=== PATIENT | female | born 1945 | race Caucasian/White ===

== ENCOUNTER 2016-11-14 17:12 | Observation (INO) | payer MEDICARE ==
[2016-11-14] MEDS ORDERED: NS 0.9% 1000 ML* 1,000 ML IV ONE (17:58)
[2016-11-14] MEDS ORDERED: Diltiazem IV* 5 MG/ML 5 ML VIAL (for loading dose/IV Push) (25 MG) IV PUSH ONE (17:58)
[2016-11-14] MEDS ORDERED: Diltiazem IV VIAL* 125 MG in D5W 100 ML BAG* 100 ML IV ONE (18:02)
[2016-11-14] MEDS ORDERED: Diltiazem DRIP* 100 MG/100 ML ADDV.BAG IVPB ONE (18:34)
[2016-11-14 18:36] LABS: Hematocrit 36 % (35-47); Hemoglobin 12.6 g/dl (12.0-16.0); Mean Corpuscular HGB Conc 35 g/dl (31-36); Mean Corpuscular Hemoglobin 32 pg (27-31); Mean Corpuscular Volume 92 fL (80-97); Mean Platelet Volume 8 um3 (7.4-10.4); Red Blood Count 3.88 10^6/ul (4.0-5.4); Red Cell Distribution Width 14 % (10.5-15); White Blood Count 8.6 10^3/ul (3.5-10.8)
[2016-11-14 18:52] LABS: Albumin 3.6 g/dL (3.2-5.2); BUN/Creatinine Ratio 12.4 (8-20); EGFR African American 48.6 (>60); EGFR Non-African American 37.8 (>60); Magnesium 1.2 mg/dL (1.9-2.7); Potassium 2.9 mmol/L (3.5-5.0); Total Bilirubin 0.8 mg/dL (0.2-1.0); Total Protein 6.6 g/dL (6.4-8.9)
[2016-11-14] MEDS ORDERED: Apixaban* 5 MG TAB PO ONE (18:55)
--- NOTE | 2016-11-14 18:58 | RAD ---
Indication: Atrial fibrillation and dizziness after hiking this week. Comparison: No relevant prior exams available on the [facility] for comparison. Technique: Upright AP 1823 hours Report: Clear lungs and pleural spaces. Negative for pneumothorax. The heart, pulmonary vasculature, and mediastinal contours are unremarkable. IMPRESSION: No evidence for acute intrathoracic disease.
--- NOTE | 2016-11-14 19:02 | ED ---
Jose A Grayson Angela, scribed for Rivera Ponce MD on 11/14/16 at 1746 . Palpitations / Dysrhythmia - HPI Summary HPI Summary: This pt is a 71 y/o female presenting to [facility] for an evaluation of A-fib, dizziness and light-headedness. Pt is sent from her PCP's office with a rate of 173. Pt reports she was in the [facility] when her symptoms started 4 days ago after taking a 4 mile walk. Pt notes she had nothing to drink and when she got to her home she had a lot of Gatorade. Pt denies chest pain, cough, fever, chills, slurred speech, motor weakness, weight loss, LE swelling. She states her baseline BP is around 120/80. Pt does not use tobacco but drinks alcohol socially. Pt is not anticoagulated. Last time she ate was at 10:00 today. She notes having a similar episode 10 years ago but her symptoms resolved on its own. - History of Current Complaint Chief Complaint: EDDysrhythmPalp Time Seen by Provider: 11/14/16 17:29 Hx Obtained From: Patient Onset/Duration: Lasting Days Timing: Constant Character: Fast Aggravating: Nothing Alleviating: Nothing Associated Signs & Symptoms: Lightheadedness, Dizzy - Allergy/Home Medications Allergies/Adverse Reactions: Allergies Allergy/AdvReac Type Severity Reaction Status Date / Time No Known Allergies Allergy Verified 02/21/16 11:33 Home Medications: Home Medications Ascorbic Acid TAB* [Vitamin C TAB*] 500 mg PO DAILY 11/14/16 [History Confirmed 11/14/16] Aspirin EC Low Dose* [Ecotrin EC Low Dose 81 MG*] 81 mg PO DAILY 11/14/16 [ History Confirmed 11/14/16] Atorvastatin* [Lipitor*] 20 mg PO DAILY 11/14/16 [History Confirmed 11/14/16] Hydrochlorothiazide TAB* [Hydrodiuril TAB*] 25 mg PO DAILY 11/14/16 [History Confirmed 11/14/16] Lisinopril TAB* [Prinivil TAB*] 10 mg PO DAILY 11/14/16 [History Confirmed 11/14] Marceline-3 Fatty Acids (Nf) [Fish Oil (NF)] 1,000 mg PO DAILY 11/14/16 [History Confirmed 11/14/16] PMH/Surg Hx/FS Hx/Imm Hx Endocrine/Hematology History: Denies: Hx Diabetes Cardiovascular History: Reports: Hx Hypertension Neurological History: Denies: Hx CVA - Cancer History Hx Chemotherapy: No Hx Radiation Therapy: No - Surgical History Surgery Procedure, Year, and Place: hysterectomy - 1986 Infectious Disease History: Denies: Traveled Outside the [place] in Last 30 Days - Family History Known Family History: Positive: Hypertension, Other - CVA -mother Negative: Blood Disorder - Social History Alcohol Use: Occasionally Substance Use Type: Reports: None Smoking Status (MU): Never Smoked Tobacco Review of Systems Negative: Fever, Chills Eyes: Negative ENT: Negative Positive: Palpitations - fast heart rate Negative: Cough Gastrointestinal: Negative Genitourinary: Negative Negative: Edema Neurological: Other - dizziness, light-headedness Negative: Headache, Weakness, Numbness, Slurred Speech All Other Systems Reviewed And Are Negative: Yes Physical Exam - Summary Physical Exam Summary: The patient is well-nourished in no acute distress. The skin is warm and dry and skin color reflects adequate perfusion. HEENT: The head is normocephalic and atraumatic. The pupils are equal and reactive. The conjunctivae are clear and without drainage. Nares are patent and without drainage. Mouth reveals moist mucous membranes and the throat is without erythema and exudate. The external ears are intact. The ear canals are patent and without drainage. The tympanic membranes are intact. Neck is supple with full range of motion and non-tender. There is no neck vein distension. Respiratory: Chest is non-tender. Lungs are clear to auscultation and breath sounds are symmetrical and equal. Cardiovascular: Heart is tachycardic and irregular. There is no murmur or rub auscultated. There is no peripheral edema and pulses are symmetrical and equal. There are good pulses distally. Abdomen: The abdomen is soft and non-tender. There are normal bowel sounds heard in all four quadrants. Musculoskeletal: There is no back pain noted. Extremities are non-tender with full range of motion. The capillary refill is less than 2 seconds. There is no peripheral edema or calf tenderness elicited. Neurological: Patient is alert and oriented to person, place and time. The patient has symmetrical motor strength in all four extremities. Psychiatric: The patient has an appropriate affect and does not exhibit any anxiety or depression. Pt is cooperative. Triage Information Reviewed: Yes Vital Signs On Initial Exam: Initial Vitals Pulse Resp BP Pulse Ox 45 18 112/77 100 11/14/16 17:16 11/14/16 17:16 11/14/16 17:16 11/14/16 17:16 Vital Signs Reviewed: Yes Diagnostics - Vital Signs Vital Signs Pulse Resp BP Pulse Ox 11/14/16 17:16 45 18 112/77 100 - Laboratory Lab Results: Lab Results 11/14/16 11/14/16 11/14/16 Range/Units 18:23 18:23 18:23 WBC 8.6 (3.5-10.8) 10^3/ul RBC 3.88 L (4.0-5.4) 10^6/ul Hgb 12.6 (12.0-16.0) g/dl Hct 36 (35-47) % MCV 92 (80-97) fL MCH 32 H (27-31) pg MCHC 35 (31-36) g/dl RDW 14 (10.5-15) % Plt Count 240 (150-450) 10^3/ul MPV 8 (7.4-10.4) um3 Neut % (Auto) 66.6 (38-83) % Lymph % (Auto) 23.2 L (25-47) % [place] % (Auto) 7.7 (1-9) % Eos % (Auto) 1.6 (0-6) % Baso % (Auto) 0.9 (0-2) % Absolute Neuts (auto) 5.8 (1.5-7.7) 10^3/ul Absolute Lymphs (auto) 2.0 (1.0-4.8) 10^3/ul Absolute Monos (auto) 0.7 (0-0.8) 10^3/ul Absolute Eos (auto) 0.1 (0-0.6) 10^3/ul Absolute Basos (auto) 0.1 (0-0.2) 10^3/ul Absolute Nucleated RBC 0 10^3/ul Nucleated RBC % 0 INR (Anticoag Therapy) 1.01 (0.89-1.11) APTT 26.5 (26.0-36.3) seconds Sodium 128 L (133-145) mmol/L Potassium 2.9 L (3.5-5.0) mmol/L Chloride 91 L (101-111) mmol/L Carbon Dioxide 29 (22-32) mmol/L Anion Gap 8 (2-11) mmol/L BUN 17 (6-24) mg/dL Creatinine 1.37 H (0.51-0.95) mg/dL Est GFR ( Amer) 48.6 (>60) Est GFR (Non-Af Amer) 37.8 (>60) BUN/Creatinine Ratio 12.4 (8-20) Glucose 103 H (70-100) mg/dL Lactic Acid (0.5-2.0) mmol/L Calcium 10.0 (8.6-10.3) mg/dL Magnesium 1.2 L (1.9-2.7) mg/dL Total Bilirubin 0.80 (0.2-1.0) mg/dL AST 28 (13-39) U/L ALT 15 (7-52) U/L Alkaline Phosphatase 110 H (34-104) U/L Troponin I Pending Total Protein 6.6 (6.4-8.9) g/dL Albumin 3.6 (3.2-5.2) g/dL Globulin 3.0 (2-4) g/dL Albumin/Globulin Ratio 1.2 (1-3) TSH Pending 11/14/16 Range/Units 18:23 WBC (3.5-10.8) 10^3/ul RBC (4.0-5.4) 10^6/ul Hgb (12.0-16.0) g/dl Hct (35-47) % MCV (80-97) fL MCH (27-31) pg MCHC (31-36) g/dl RDW (10.5-15) % Plt Count (150-450) 10^3/ul MPV (7.4-10.4) um3 Neut % (Auto) (38-83) % Lymph % (Auto) (25-47) % [place] % (Auto) (1-9) % Eos % (Auto) (0-6) % Baso % (Auto) (0-2) % Absolute Neuts (auto) (1.5-7.7) 10^3/ul Absolute Lymphs (auto) (1.0-4.8) 10^3/ul Absolute Monos (auto) (0-0.8) 10^3/ul Absolute Eos (auto) (0-0.6) 10^3/ul Absolute Basos (auto) (0-0.2) 10^3/ul Absolute Nucleated RBC 10^3/ul Nucleated RBC % INR (Anticoag Therapy) (0.89-1.11) APTT (26.0-36.3) seconds Sodium (133-145) mmol/L Potassium (3.5-5.0) mmol/L Chloride (101-111) mmol/L Carbon Dioxide (22-32) mmol/L Anion Gap (2-11) mmol/L BUN (6-24) mg/dL Creatinine (0.51-0.95) mg/dL Est GFR ( Amer) (>60) Est GFR (Non-Af Amer) (>60) BUN/Creatinine Ratio (8-20) Glucose (70-100) mg/dL Lactic Acid 1.2 (0.5-2.0) mmol/L Calcium (8.6-10.3) mg/dL Magnesium (1.9-2.7) mg/dL Total Bilirubin (0.2-1.0) mg/dL AST (13-39) U/L ALT (7-52) U/L Alkaline Phosphatase (34-104) U/L Troponin I Total Protein (6.4-8.9) g/dL Albumin (3.2-5.2) g/dL Globulin (2-4) g/dL Albumin/Globulin Ratio (1-3) TSH Result Diagrams: 11/14/16 18:23 11/14/16 18:23 Lab Statement: Any lab studies that have been ordered have been reviewed, and results considered in the medical decision making process. - Radiology Chest XR Xray Interpretation: Positive (See Comments) - IMPRESSION: No evidence for acute intrathoracic disease. ED physician has reviewed this radiology report and agrees. Radiology Interpretation Completed By: Radiologist - EKG 1749 EKG Rhythm: Atrial Fibrillation EKG Interpretation: rapid ventricular response Re-Evaluation - Re-Evaluation First Eval Re-Evaluation Time: 18:00 Comment: I discussed the treatment plan with the pt and her . They understand and agree. Course/Dx - Course Assessment/Plan: Pt is a 71 y/o female presenting to [facility] for an evaluation of A-fib, dizziness and light-headedness. Pt is sent from her PCP's office with a rate of 173. Labs, chest XR, and EKG were obtained. In the ED course, the pt was given Diltiazem and IV fluids. EKG shows atrial fibrillation with rapid ventricular response. I discussed the pt's case with Dr. Mendoza, gym manager , who recommends the pt be anticoagulated. We are waiting for labs to determine the dose of Eliquis. Well start the pt on Cardizem and Diltiazem. I also discussed the treatment plan with the pt and her . They understand and agree. I started the pt on 5 mg of Eliquis. Pt will be admitted in stable condition. - Diagnoses Differential Diagnosis/HQI/PQRI: Positive: Congestive Heart Failure, Coronary Artery Disease, Other - atrial fibrillation with rvr, Provider Diagnoses: Atrial fibrillation with rapid ventricular response - Physician Notifications Discussed Care Of Patient With: Mckenzie Mendoza Time Discussed With Above Provider: 17:41 Instructed by Provider To: Other - I discussed the pt's case with Dr. Mendoza, gym manager, who recommends the pt be anticoagulated. We are waiting for labs to determine the dose of Eliquis. - Critical Care Time Critical Care Time: 30-74 min - 30 minutes Discharge - Discharge Plan Condition: Stable Disposition: ADMITTED TO [facility] Referrals: Maicol Lorenzana MD [Primary Care Provider] - The documentation as recorded by the Jose A moore Angela accurately reflects the service I personally performed and the decisions made by me, Rivera Ponce MD.
[2016-11-14] MEDS ORDERED: Potassium Chlor TAB* 20 MEQ TAB.ER PO ONE ×2 (19:11→21:00)
[2016-11-14] MEDS ORDERED: Magnesium Oxide TAB* 400 MG PO ONE (19:12)
[2016-11-14] MEDS ORDERED: NS 0.9% 1000 ML* 1,000 ML IV SCH (19:15)
[2016-11-14 19:38] LABS: Troponin I 0.06 ng/mL (<0.04)
[2016-11-14 20:01] LABS: TSH (Thyroid Stimulating Horm) 4.23 mcIU/mL (0.34-5.60)
--- NOTE | 2016-11-14 20:44 | HP ---
HISTORY AND PHYSICAL: DATE OF ADMISSION: 11/14/16 CHIEF COMPLAINT: Dizziness. HISTORY OF PRESENT ILLNESS: This is a 71-year-old female with history of hypertension and hyperlipidemia presenting with 3 days of lightheadedness and dizziness. She went for a long hike on Saturday morning and did not bring any water and after she returned home, she began to feel palpitations and lightheadedness and dizziness. She has attempted to hydrate herself over the past few days; however, was continuing to feel palpitations and lightheadedness especially with exertion. These symptoms improved with rest and worsened with exertion. She denies chest pain, shortness of breath, headache, orthopnea, weight gain, or anxiety associated with these symptoms. She drinks 2 cups of coffee per day. She uses no illicit drugs. She does note a remote history of thyroid disease; however, she has not been on medications for years. She has no complaints at this time and feels much better since receiving Cardizem in the emergency department. PAST MEDICAL HISTORY: Hypertension, hyperlipidemia. HOME MEDICATIONS: 1. Lipitor 20 mg. 2. Hydrochlorothiazide/lisinopril combination. 3. Aspirin 81 mg daily. 4. Calcium. 5. Fish oil. ALLERGIES: No known drug allergies. SOCIAL HISTORY: She lives at home with her . 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 She drinks alcohol occasionally, but was not drinking prior to these symptoms. She is a never smoker. REVIEW OF SYSTEMS: A 14-point review of systems is negative except as noted in the HPI. PHYSICAL EXAMINATION GENERAL: Alert, well-appearing, in no distress. VITAL SIGNS: Heart rate 74, on presentation to the emergency room, it was 117; blood pressure 112/77; oxygen saturation 100% on room air; temperature 98.2 degrees. HEENT: No proptosis. Thyroid is nonpalpable. Moist mucosa. NECK: No lymphadenopathy. No JVP. CHEST: She is now in a regular rate and rhythm with no murmurs. Her PMI is nondisplaced. Her lungs are clear bilaterally. ABDOMEN: Soft, nontender, nondistended. EXTREMITIES: No tremor, no edema. Strength is 5+ bilaterally. Reflexes are 2 + throughout. DIAGNOSTIC STUDIES/LAB DATA: Notable for sodium of 128, potassium 2.9, chloride 91, bicarb 29, creatinine 1.37, magnesium 1.2. CBC is unremarkable. TSH is pending. EKG shows a regularly rhythm at 129, left axis deviation and an incomplete right bundle branch block. Chest x-ray is negative for fractures, infiltrates, or consolidations. No cardiomegaly. ASSESSMENT AND PLAN: This is a 71-year-old female with past medical history of hypertension and hyperlipidemia, presenting with 3 days of palpitations and lightheadedness and found to be in a new-onset supraventricular tachyarrhythmia. 1. Supraventricular tachyarrhythmia. Atrial fibrillation versus multifocal atrial tachycardia. She received IV Cardizem in the emergency department and has now converted to normal sinus rhythm. Check another EKG now to capture normal sinus. She has no risk factors for pulmonary embolism and no history to suggest new-onset heart failure nor ischemia. I suspect this episode is most likely related to her recent dehydration and metabolic derangement as evidenced by her basic metabolic panel this evening. We will monitor on telemetry overnight, she should have an echocardiogram in the morning to rule out structural and valvular abnormalities. Her CHADS2-VASc score is 3, therefore she warrants anticoagulation. I discussed therapeutic anticoagulation with her and she is open to this, so we will start Eliquis. This can be continued if there are no valvular abnormalities on the echocardiogram. 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 She has no current risks for bleeding. A TSH is pending. Check UA. 2. Acute kidney injury. We have no baseline for comparison; however, given her recent history, I suspect this is an acute kidney injury for her. I suspect it is most likely prerenal and will trial IV fluid resuscitation and recheck in the morning. Check urinalysis tonight. 3. Hypokalemia. Likely due to recent strenuous hike and hctz. Replete now. 4. Hypomagnesemia. As above, replete now. 4. Hypertension. Hold HCTZ and lisinopril while resolving acute kidney injury. 5. Hyperlipidemia. Continue Lipitor. 6. DVT prophylaxis. She is being therapeutically anticoagulated. [id number]/[facility] #: [id number] [facility]
[2016-11-14] MEDS ORDERED: Magnesium Sulfate 2 GM IV* 2 GM/50 ML BAG IVPB ONE (21:00)
[2016-11-14 22:05] LABS: Urine Bacteria Absent (Absent); Urine Bilirubin Negative (Negative); Urine Glucose Negative (Negative); Urine Nitrite Negative (Negative)
--- NOTE | 2016-11-14 22:25 | PN ---
Progress Note - Progress Note Date of Service: 11/14/16 Note: cross cover: Pt indicated to nurse that her had been treating her for UTI at home and had maybe 1 more day of ciprofloxacin to continue. Dose 500mg PO ciprofloxacin now and adjust treatment plan in AM as necessary
--- NOTE | 2016-11-14 22:56 | CONS ---
CC: Dr. Maicol Lorenzana; Hospitalist Service * CARDIOLOGY CONSULTATION: DATE OF CONSULT: 11/14/16 REASON FOR CONSULT: Atrial fibrillation. HISTORY OF PRESENT ILLNESS: Ms. Egan is a 71-year-old woman who has been healthy, but is on medication for hypertension and dyslipidemia. The patient and her physician were in the [facility] and she was just about to finish a 4-mile hike when the patient felt lightheaded as her heart skipping, she has had AFib in the past distantly and it felt the same. This was on Saturday 4 days prior to admission. With this, she felt quite lightheaded, a little bit nauseated, and was not hungry, but they stayed in the [place], tried to take it easy, but her symptoms did not anny so they came home early. The patient was seen in her primary care physician's office today and atrial fibrillation was confirmed and she was referred to the emergency department. The patient has a past medical history of hypertension and dyslipidemia. The patient had not had any excessive alcohol the night before they had had dinner and 1 glass of wine. She feels she sleeps well. No history to suggest apnea. She had had coffee in the morning. No recent [id number] medications. She felt she was dehydrated and this contributed to the onset of these symptoms. PAST MEDICAL HISTORY: The patient has a past medical history of hypertension and dyslipidemia and atrial fibrillation in the past. MEDICATIONS: Outpatient medications included: 1. Lisinopril 10 mg a day. 2. Hydrochlorothiazide 25 mg a day. 3. Atorvastatin 20 mg a day. 4. Aspirin 81 mg a day. 5. Vitamin C 500 mg a day. 6. Fish oil 1000 mg a day. ALLERGIES: She has no known medication allergies. FAMILY HISTORY: Significant that her mother had a history of stroke as well as hypertension. 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 REVIEW OF SYSTEMS: Negative for fevers, chills, sweats. No chest pain. Prior to the event, she had no exertional dyspnea, was in very good physical shape. With the symptoms, she admits to feeling short of breath and dizzy with any sort of activity, even light activity. No orthopnea or PND. No chest pain, pressure, or heaviness. Two days after the AFib started, the patient had cloudy urine and dysuria consistent with a urinary tract infection and her had Cipro and she has been taking that for 2 days with marked improvement in these symptoms. All other 14-point review of systems was negative. PHYSICAL EXAM: The patient is 5 feet, weighs 135 pounds with a BMI of 22. Vitals: On arrival to the emergency department, blood pressure 112/77, pulse was 115, irregularly irregular, respiratory rate is 18, oxygen saturation 96% to 100% on room air, temperature 98.2. General Appearance: Fit appearing, elder woman, in no acute distress. Psychologically, pleasant, cooperative, upbeat. Neurologically, awake, alert, and oriented to person, place, and time. Cranial nerves II through XII intact. Grossly normal sensory and motor function in the upper and lower extremities and normal gait. Skin: Age appropriate changes, warm, and dry. No cyanosis or rashes. HEENT: Pupils are equal and round. Mucous membranes are moist. Neck without increased JVP. Breath sounds clear with good effort. No wheezes, rales, or rhonchi. Coronary : S1 and S2, irregularly irregular without murmurs or rubs. Abdomen: Soft and nontender. Lower extremity free of edema and warm with palpable distal pulses. 12-lead ECG at 1721 shows flutter vs MAT with a ventricular rate of 130 beats a minute. QRS axis -30. Normal intraventricular conduction times with an R prime V1 and V2 and ST changes unremarkable. No prior EKGs available to compare. Chest x-ray: No acute disease. DIAGNOSTIC STUDIES/LAB DATA: Sodium 128, potassium 3.9, chloride 91, bicarb 29 , BUN 17, creatinine 1.37, glucose 103, magnesium 1.2, ALT 15, alk phos 110, troponin #1 0.06, TSH 4.23, INR 1.01. PTT 26.5, white count 8.6, hemoglobin 12.6, hematocrit 36, platelets 240. Urinalysis pending. IMPRESSION: In summary, Swapna Egan is a 71-year-old woman with probable atrial flutter (vs. MAT) associated with lightheadedness and decline in exercise ability and shortness of breath which by history has been present for 5 days. Contributing factors might be her urinary tract infection, age, hypertension, but also electrolyte disturbances are likely contributing. She has been started on Eliquis by the Hospitalist which I agree with and recommended to the patient and her that she stay on it at least a month I would say 1 to 3 months. Electrolyte replacement has been initiated and I think we need to be more aggressive with this and I agree with normal saline for dehydration and hyponatremia. I will tentatively plan on transesophageal echo-guided cardioversion in the morning and this will additionally allow us to evaluate her heart structurally. joint terminal attack controller, she may need potassium replacement with her hydrochlorothiazide or perhaps a different antihypertensive regimen than diuretics going forward. The decision on whether or not to start antiarrhythmics can be pending her clinical course, echo results. For the mild elevation in troponin, this may represent the atrial fibrillation itself, but a stress test/ischemic workup should be performed, decisions regarding what is most appropriate, a stress test versus other options can be made after her echocardiogram as well. Thank you for allowing me to assist in this nice woman's care. [id number]/[facility] #: [id number] [place]
[2016-11-14] MEDS ORDERED: Ciprofloxacin TAB* 500 MG PO ONE (23:00)
[2016-11-15 05:30] LABS: BUN/Creatinine Ratio 12.6 (8-20); Calcium 9.3 mg/dL (8.6-10.3); EGFR African American 57.2 (>60); EGFR Non-African American 44.5 (>60); Magnesium 1.8 mg/dL (1.9-2.7); Phosphorus 2.7 mg/dL (2.5-5.0); Potassium 3.5 mmol/L (3.5-5.0)
[2016-11-15] MEDS ORDERED: Magnesium Sulfate 2 GM IV* 2 GM/50 ML BAG IVPB ONE (07:33)
[2016-11-15] MEDS ORDERED: Apixaban* 5 MG TAB PO SCH (09:00)
[2016-11-15] MEDS ORDERED: Ascorbic Acid TAB* 500 MG PO SCH (09:00)
[2016-11-15] MEDS ORDERED: Atorvastatin* 20 MG TAB PO SCH (09:00)
[2016-11-15] MEDS ORDERED: Magnesium Sulf 4 GM/100 ML IV* 4,000 MG/100 ML BAG IVPB ONE (09:30)
[2016-11-15 09:36] LABS: Troponin I 0.06 ng/mL (<0.04)
[2016-11-15] MEDS ORDERED: Metoprolol Succinate XL TAB* 25 MG PO SCH (11:00)
[2016-11-15] MEDS: Potassium Chlor TAB* 10 MEQ TAB.ER PO SCH ×2 (12:36→14:27)
--- NOTE | 2016-11-15 15:33 | ECHO ---
Patient: GALE BISHOP [facility] Rec#: [id number] : 1945 Date: 11/15/2016 Age: 71y Height: 167.64 cm / 66.0 in Weight: 62.6 kg / 138.0 lbs Sex: F BSA: 1.71 Room#: 452 Admit Date#: 11/14/2016 Type: Inpatient Referring: Mckenzie Mendoza MD Reading: Blake Romero MD Acupressurist: Katherine Johnson AARTI CC: Maicol Lorenzana MD Transthoracic Echocardiogram Indication: Abn EKG//MAT BP: 112/46 HR: 77 Rhythm: NSR with PACs Findings History: HTN,HLD,MAT,dizziness. Technical Comments: The study quality is good. Completed at 1500. Left Ventricle: The left ventricular chamber size is decreased. Mild to moderate concentric left ventricular hypertrophy is observed. Global left ventricular wall motion and contractility are within normal limits. There is normal left ventricular systolic function. The estimated ejection fraction is greater than 65%. The left ventricular diastolic filling pattern is consistent with pseudonormalization. Left Atrium: The left atrium is moderate to severely dilated. Right Ventricle: The right ventricular cavity size is normal. The right ventricular global systolic function is normal. Right Atrium: The right atrium is mildly dilated. Aortic Valve: The aortic valve is trileaflet. There is no evidence of aortic valve thickening. There is no evidence of aortic regurgitation. There is no evidence of aortic stenosis. Mitral Valve: There is mitral annular calcification. The mitral valve leaflets are mildly thickened. There is moderate mitral regurgitation. There are central and alateral eccentric jets; the lateral jet is directed along the lateral wall toward the apex of the LA. There is borderline mitral stenosis. Tricuspid Valve: The tricuspid valve leaflets are normal. There is mild to moderate tricuspid regurgitation. There is evidence of mild to moderate pulmonary hypertension. There is no tricuspid stenosis. Pulmonic Valve: The pulmonic valve appears normal. There is no evidence of pulmonic regurgitation. There is no pulmonic stenosis. Pericardium: The pericardium appears normal. Aorta: There is no dilatation of the ascending aorta. There is no dilatation of the aortic arch. There is no dilation of the aortic root. Pulmonary Artery: The main pulmonary artery appears normal. Venous: The inferior vena cava is dilated. There is a greater than 50% respiratory change in the inferior vena cava dimension. Summary: There was not any prior study for comparison. Conclusions The left ventricular chamber size is decreased. Mild to moderate concentric left ventricular hypertrophy is observed. There is normal left ventricular systolic function. The estimated ejection fraction is greater than 65%. The left ventricular diastolic filling pattern is consistent with pseudonormalization. The left atrium is moderate to severely dilated. The right atrium is mildly dilated. There is no evidence of aortic valve thickening. There is mitral annular calcification. There is moderate mitral regurgitation. There are central and alateral eccentric jets; the lateral jet is directed along the lateral wall toward the apex of the LA. There is mild to moderate tricuspid regurgitation. There is evidence of mild to moderate pulmonary hypertension. Measurements Name Value Normal Range RVIDd (AP) 2D 3 cm (0.9 - 2.6) RVDdMajor (2D) 2.9 cm (2.2 - 4.4) RAd ISD 4CH 5.1 cm (3.4 - 4.9) RA (A4C)W 3.1 cm (2.9 - 4.6) IVSd (2D) 1.3 cm (0.6 - 1) LVPWd (2D) 1.24 cm (0.6 - 1) LVIDd (2D) 2.6 cm (3.6 - 5.4) LVIDs (2D) 1.9 cm - LV FS (2D) 27 % (25 - 45) Aortic Annulus 1.9 cm (1.4 - 2.6) Ao root diameter (2D) 3.1 cm (2.1 - 3.5) Ascending Ao 2.7 cm (2.1 - 3.4) Aortic arch 2.3 cm (1.8 - 3.4) Descending Ao 0.4 cm - LA dimension (AP) 2D 4.2 cm (2.3 - 3.8) LAd ISD 4CH 5.5 cm (2.9 - 5.3) LA ISD 4CH W 4.4 cm (2.5 - 4.5) Name Value Normal Range LA ESV SP 4CH (A/L) 61 ml - LA ESV SP 2CH (A/L) 115 ml - LA ESV BP (A/L) 85 ml - LA ESV BP (A/L) index 49.99 ml/m2 - LA ESV SP 4CH (MOD) 52 ml - LA ESV SP 2CH (MOD) 107 ml - Name Value Normal Range MV E-wave Vmax 2 m/sec - MV deceleration time 230 msec - MV A-wave Vmax 0.6 m/sec - MV E:A ratio 3.28 ratio - LV septal e' Vmax 0.09 m/sec - LV lateral e' Vmax 0.07 m/sec - LV E:e' septal ratio 22.22 ratio - LV E:e' lateral ratio 28.57 ratio - Name Value Normal Range AV Vmax 1.4 m/sec - AV VTI 31 cm - AV peak gradient 8.13 mmHg - AV mean gradient 4.33 mmHg - LVOT diameter 1.8 cm - LVOT Vmax 0.9 m/sec - LVOT VTI 22.4 cm - LVOT peak gradient 3.33 mmHg - LVOT mean gradient 1.66 mmHg - SV LVOT 58 ml - Name Value Normal Range MV Vmax 2.1 m/sec - MV VTI 40.4 cm - MV peak gradient 18.15 mmHg - MV mean gradient 3.26 mmHg - MV PHT 62.4 msec - MR Vmax 5.34 m/sec - MR VTI 170.6 cm - MVA (PHT) 3.5 cm2 - MVA (continuity VTI) 1.4 cm2 - Name Value Normal Range TR Vmax 3.1 m/sec - TR peak gradient 39 mmHg - RAP 8 mmHg - RVSP 47 mmHg - IVC diameter 2.2 cm - Name Value Normal Range PV Vmax 0.6 m/sec - PV peak gradient 1.55 mmHg -
[2016-11-15 16:33] VITALS: BP 122/71
--- NOTE | 2016-11-16 05:24 | DS ---
CC: Maicol Lorenzana MD; Mckenzie Mendoza MD * DISCHARGE SUMMARY: DATE OF ADMISSION: 11/14/16 DATE OF DISCHARGE: 11/15/16 PRIMARY CARE PROVIDER: Maicol Lorenzana MD CONSULTING RESIDENT SERVICES COORDINATOR: Mckenzie Mendoza MD DISCHARGING PROVIDER: GARY Magallon SUPERVISING PHYSICIAN: Teresa Kaur MD * (DICTATED BY GARY MAGALLON) PRIMARY DISCHARGE DIAGNOSES: 1. Atrial fibrillation with rapid ventricular rate. 2. Hyponatremia. 3. Hypokalemia. 4. Hypomagnesemia. 5. Acute kidney injury. 6. Demand ischemia. 7. Moderate mitral regurgitation. SECONDARY DISCHARGE DIAGNOSES: 1. Hypertension. 2. Hyperlipidemia. 3. Possible recent urinary tract infection. DISCHARGE MEDICATIONS: 1. Eliquis 5 mg p.o. twice daily. 2. Vitamin C 500 mg 3. Aspirin 81 mg p.o. daily. 4. Atorvastatin 20 mg p.o. daily. 5. Lisinopril 10 mg p.o. daily. 6. Metoprolol succinate 25 mg p.o. daily. 7. [place]-3 fatty acid 1000 mg p.o. daily. Medication changed: 1. Stop hydrochlorothiazide. 2. Start Eliquis. 3. Start metoprolol. HOSPITAL IMAGIN. Chest x-ray demonstrated no acute process. 2. Transthoracic echocardiogram demonstrated left ventricular ejection fraction of greater than 65% with mild to moderate LVH and associated diastolic dysfunction. Moderate mitral regurg associated with left atrial dilatation and mild to moderate pulmonary hypertension. HOSPITAL COURSE: This is a 71-year-old female with a history of hypertension, hyperlipidemia who presented at the recommendation of her primary care with complaints of dizziness and palpitation. The patient's symptoms started couple of days prior to presentation following a long a hike in the [facility], which she completed without water. She felt that she was dehydrated and attempted to rehydrate over the couple of days prior, but despite this, continued to feel dizzy with palpitations. She was seen by her primary care provider with these complaints at which point, EKG demonstrated what appeared to be atrial fibrillation with a rapid ventricular rate. She was subsequently transferred to the emergency department for further evaluation. Initial labs demonstrated normal CBC. Metabolic panel, however, showed multiple derangements including hyponatremia with a sodium of 128, potassium of 2.9, creatinine of 1.37, magnesium of 1.2 and initial troponin of 0.06. 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 She received a bolus of Cardizem in the emergency department and subsequently cardioverted to normal sinus rhythm. The patient's electrolytes were repleted with her sodium improving to 130, potassium of 3.5 and magnesium of 1.8 prior to discharge. Her troponins remained stable at 0.06 without complaints of chest pain. No ischemic changes noted on EKG. She had MIRNA-VASc score 3 and subsequently started on anticoagulation with Eliquis. She underwent echocardiogram, which demonstrated normal left ventricular ejection fraction with evidence of mitral regurg and associated left atrial dilatation. She remained in a sinus rhythm during the remainder of her hospital stay. The patient was also started on metoprolol succinate for rate control and with previous history of hydrochlorothiazide for blood pressure control, which was discontinued due to her hyponatremia and hypokalemia and hypomagnesemia. The patient was also noted to have possible recent UTI treated at home by her retired physician with Cipro for which she has received 4 days of treatment. Her urinary symptoms have resolved. Urinalysis was slightly abnormal and urine culture is still pending at the time of discharge, but no evidence of fever or other systemic illness. The patient's acute presentation appeared to mostly likely be precipitated by acute dehydration and metabolic derangement as a result of dehydration from her recent hike and continuation of hydrochlorothiazide. Due to the length for her symptoms and other vascular risk factors, anticoagulation was recommended. Her left atrial enlargement also places her at higher risk for paroxysmal atrial fibrillation and her anticoagulation may be necessary indefinitely. She will require followup with Cardiology to address recommendations for the length of anticoagulation and further long-term monitoring to help address those recommendations. DISPOSITION AND FOLLOWUP PLAN: The patient is being discharged to home, currently in a normal sinus rhythm. Recommendations to stop her hydrochlorothiazide have been made and followup with her primary care provider for additional blood pressure monitoring. She should start on Eliquis and metoprolol as outlined above. She requires followup with Dr. Mckenzie Mendoza on an outpatient basis to address additional long-term monitoring and length of anticoagulation as well as further followup and monitoring regarding her mitral regurg that was incidentally noted on her echocardiogram. The patient was given a requisition to repeat basic metabolic panel in approximately 1 week prior to followup with her primary care provider. The patient was not continued on additional ciprofloxacin as she completed a total of 4 days of therapy. Her urine culture is pending at the time of discharge and will need followup by her primary care provider. GARY MAGALLON [id number]/[facility] #: [id number] BRETT
== END 2016-11-15 17:14 | disposition home or self-care (01) ==
LOC: ED 17:12 → INTOOBSV 18:49 → OBSVTOIN 18:49 → MEDTELE 18:49
PROVIDERS: ADMIT Internal Medicine; ATTEND Internal Medicine
DX: I48.91 Unspecified atrial fibrillation (principal); E87.1 Hypo-osmolality and hyponatremia; E87.6 Hypokalemia; E83.42 Hypomagnesemia; N17.9 Acute kidney failure, unspecified; I24.8 Other forms of acute ischemic heart disease; I34.0 Nonrheumatic mitral (valve) insufficiency; I07.1 Rheumatic tricuspid insufficiency; I27.2 Other secondary pulmonary hypertension; I51.7 Cardiomegaly; R42 Dizziness and giddiness; I10 Essential (primary) hypertension; E78.5 Hyperlipidemia, unspecified; N39.0 Urinary tract infection, site not specified
CPT/HCPCS: 36415; 71010; 80048; 80053; 81003; 81015; 83605; 83735; 84100; 84443; 84484; 85025; 85610; 85730; 87086; 93005; 93306; 96374; 99284; A9270-GY; G0378; J3475

== ENCOUNTER 2017-01-14 09:20 | Inpatient (IN) | payer MEDICARE ==
[2017-01-14] MEDS ORDERED: Dofetilide CAP* 500 MCG PO SCH (11:00)
[2017-01-14 11:28] LABS: Albumin 3.2 g/dL (3.2-5.2); Calcium 9.8 mg/dL (8.6-10.3); Globulin 3.4 g/dL (2-4); Magnesium 1.9 mg/dL (1.9-2.7); Potassium 3.7 mmol/L (3.5-5.0); Total Bilirubin 0.9 mg/dL (0.2-1.0); Total Protein 6.6 g/dL (6.4-8.9)
[2017-01-14] MEDS ORDERED: Dofetilide CAP* 250 MCG PO SCH ×2 (12:00→23:00)
[2017-01-14] MEDS ORDERED: Pneumococcal *Vac Polyvalent 0.5 ML VIAL IM ONE (12:00)
[2017-01-14] MEDS ORDERED: Metoprolol Tartrate IV* 1 MG/ML 5 ML VIAL IV ONE (13:30)
[2017-01-14] MEDS: Atorvastatin* 20 MG TAB PO SCH (13:39)
[2017-01-14] MEDS: Aspirin EC Low Dose* 81 MG TAB.EC PO SCH (13:39)
[2017-01-14] MEDS ORDERED: Lisinopril TAB* 10 MG PO SCH (14:00)
[2017-01-14] MEDS ORDERED: Metoprolol Succinate XL TAB* 50 MG PO ONE (14:00)
[2017-01-14] MEDS: Metoprolol Succinate XL TAB* 50 MG PO SCH (20:59)
[2017-01-14] MEDS: Apixaban* 5 MG TAB PO SCH (20:59)
[2017-01-15 06:30] LABS: BUN/Creatinine Ratio 17.7 (8-20); Calcium 9.3 mg/dL (8.6-10.3); EGFR African American 91.7 (>60); EGFR Non-African American 71.3 (>60); Potassium 3.4 mmol/L (3.5-5.0)
[2017-01-15] MEDS ORDERED: Potassium Chloride LIQUID* 20 MEQ PACKET PO ONE (08:56)
[2017-01-15] MEDS: Dofetilide CAP* 125 MCG PO SCH ×2 (09:50→21:10)
[2017-01-15] MEDS: Ascorbic Acid TAB* 500 MG PO SCH (09:50)
[2017-01-15] MEDS: Aspirin EC Low Dose* 81 MG TAB.EC PO SCH (09:50)
[2017-01-15] MEDS: Apixaban* 5 MG TAB PO SCH ×2 (09:50→21:09)
[2017-01-15] MEDS: Atorvastatin* 20 MG TAB PO SCH (09:50)
[2017-01-15] MEDS: Metoprolol Succinate XL TAB* 50 MG PO SCH ×2 (09:50→21:10)
[2017-01-16 05:06] LABS: Magnesium 1.8 mg/dL (1.9-2.7)
[2017-01-16 05:24] LABS: BUN/Creatinine Ratio 14.1 (8-20); Calcium 9.5 mg/dL (8.6-10.3); EGFR African American 93.1 (>60); EGFR Non-African American 72.4 (>60); Magnesium 1.7 mg/dL (1.9-2.7); Potassium 3.3 mmol/L (3.5-5.0)
[2017-01-16] MEDS: Potassium Chlor TAB* 20 MEQ TAB.ER PO SCH ×2 (08:44→13:51)
[2017-01-16] MEDS: Metoprolol Succinate XL TAB* 50 MG PO SCH ×2 (08:57→20:52)
[2017-01-16] MEDS: Dofetilide CAP* 125 MCG PO SCH ×2 (08:57→20:52)
[2017-01-16] MEDS ORDERED: Magnesium Sulfate 2 GM IV IVPB ONE (09:00)
--- NOTE | 2017-01-16 09:49 | RAD ---
INDICATION: Hypoxia COMPARISON: November 14, 2016 TECHNIQUE: PA and lateral dual-energy views were obtained. FINDINGS: Bones/Soft Tissues: There are no acute bony findings. Cardiomediastinal: The heart is normal in size. Central pulmonary vessels and interstitium are prominent. This is likely related to interstitial edema. Lungs: Given the diffuse interstitial change, superimposed infectious infiltrates are not excluded. Pleura: There are no significant pleural effusions. Other: None IMPRESSION: SUSPECT PULMONARY INTERSTITIAL EDEMA. RECOMMEND FOLLOW-UP.
[2017-01-16] MEDS: Apixaban* 5 MG TAB PO SCH ×2 (09:50→20:52)
[2017-01-16] MEDS: Ascorbic Acid TAB* 500 MG PO SCH (09:50)
[2017-01-16] MEDS: Aspirin EC Low Dose* 81 MG TAB.EC PO SCH (09:50)
[2017-01-16] MEDS: Atorvastatin* 20 MG TAB PO SCH (09:51)
--- NOTE | 2017-01-16 10:44 | PN ---
Subjective Date of Service: 01/16/17 - CC: SOB and cough Interval History: The patient states she has had 3 months of coughing at night. She drinks ice water to treat. Not present in the day time until yesterday. Cough is dry. She was up all night due to her cough. Drop in O2 saturations noted. The patient continues to have anorexia (has had with weight loss as an out patient). Medications Active Medications: Apixaban (Eliquis*) 5 mg PO BID [facility] Last Admin: 01/16/17 09:50 Dose: 5 mg Ascorbic Acid (Vitamin C Tab*) 500 mg PO DAILY [facility] Last Admin: 01/16/17 09:50 Dose: 500 mg Aspirin (Aspirin Ec Low Dose*) 81 mg PO DAILY [facility] Last Admin: 01/16/17 09:50 Dose: 81 mg Atorvastatin Calcium (Lipitor*) 20 mg PO DAILY [facility] Last Admin: 01/16/17 09:51 Dose: 20 mg Dofetilide (Tikosyn Cap*) 125 mcg PO BID [facility] Last Admin: 01/16/17 08:57 Dose: 125 mcg Metoprolol Succinate (Toprol Xl Tab*) 50 mg PO BID [facility] Last Admin: 01/16/17 08:57 Dose: 50 mg Potassium Chloride (Klor Con Er Tab*) 40 meq PO Q4H [facility] Stop: 01/16/17 13:01 Last Admin: 01/16/17 08:44 Dose: 40 meq Objective Vital Signs: Temp Pulse Resp BP Pulse Ox 97.6 F 128 20 152/82 95 01/16/17 08:38 01/16/17 08:24 01/16/17 07:42 01/16/17 08:24 01/16/17 08:38 Oxygen Devices in Use Now: Nasal Cannula Appearance: Lean older woman, sitting at 30 degrees, comfortable with O2 on (NC) . Eyes: No Scleral Icterus, PERRLA Ears/Nose/Mouth/Throat: Clear Oropharnyx, Mucous Membranes Moist Neck: NL Appearance and Movements; NL JVP, Trachea Midline, No Thyroid Enlargement, Masses Respiratory: Symmetrical Chest Expansion and Respiratory Effort - crackles in the bases bilaterally. Cardiovascular: RRR - soft murmer heard LLSB and minimal at the apex. Abdominal: NL Sounds; No Tenderness; No Distention, No Hepatosplenomegaly Extremities: No Edema, No Clubbing, Cyanosis Skin: No Rash or Ulcers Neurological: Alert and Oriented x 3, NL Muscle Strength and Tone Lines/Tubes/Other Access: Clean, Dry and Intact Peripheral IV Laboratory Results: 01/14/17 01/15/17 01/16/17 11:05 06:01 04:34 D-Dimer, Quantitative Sodium 133 130 L 131 L Potassium 3.7 3.4 L 3.3 L Chloride 101 101 101 Carbon Dioxide 27 24 25 Anion Gap 5 5 5 BUN 15 14 11 Creatinine 0.88 0.79 0.78 Est GFR ( Amer) 81.0 91.7 93.1 Est GFR (Non-Af Amer) 63.0 71.3 72.4 BUN/Creatinine Ratio 17.0 17.7 14.1 Glucose 99 104 H 99 Calcium 9.8 9.3 9.5 Magnesium 1.9 1.8 L 1.7 L Total Bilirubin 0.90 AST 16 ALT 8 Alkaline Phosphatase 94 C-React Prot High Sens 34.89 Total Protein 6.6 Albumin 3.2 Globulin 3.4 Albumin/Globulin Ratio 0.9 L 01/16/17 09:47 D-Dimer, Quantitative 318 H Sodium Potassium Chloride Carbon Dioxide Anion Gap BUN Creatinine Est GFR ( Amer) Est GFR (Non-Af Amer) BUN/Creatinine Ratio Glucose Calcium Magnesium Total Bilirubin AST ALT Alkaline Phosphatase C-React Prot High Sens Total Protein Albumin Globulin Albumin/Globulin Ratio Diagnostic Imaging: CXR today: interstial edema, perihilar, LLL EKG Data: parox afib, currently NSR with PAC's. QTc <500 ms Assessment/Plan 71 yo female with hx HTN, was active and overall healthy until presentation in November 2016 with afib/flutter. At that time also hypokalemic, hyponatremic and HCTZ stopped. As outpatient tried on Sotalol and beta blockers with benefit, but some side effects and breakthrough and admitted for TIkosyn loading. Now with progression in outpatient coughing, hypoxia, CXR showing interstitial edema, new c/w November CXR. Electrolytes are also again low. Paroxysmal atrial fibrillation: -Continue Tikosyn loading. -Repleat electrolytes. -Continue Eliquis. -May need ablation, has seen an EP MD as well outpatient. Interstitial edema: -CHF vs. other. -Update echo. -CT I+ later today as I am surprised she would have CHF. -Check CBC for ?infection. -May need diuretics later today. Electrolyte imbalance (low Na+, K+ and Mag++) -Uncertain why this has recurred, possible dilution factor as she is drinking a lot of free water for cough. Asked her to drink milk or juice instead. -? renal process -Repleat as above to continue Tikosyn load but will enlist assistance of hospitalist for now. Weight loss/anorexia: -This raises the possiblity of a neoplastic process which could explain some of the above issues as well. Aware Dr. Lorenzana had ordered CT to eval for this , monoclonal gammopathy, elevated ESR and CRP. Will review data from above studies and then consider additional next steps.
[2017-01-16 10:55] LABS: Hematocrit 34 % (35-47); Mean Corpuscular HGB Conc 33 g/dl (31-36); Mean Corpuscular Hemoglobin 29 pg (27-31); Mean Corpuscular Volume 87 fL (80-97); Mean Platelet Volume 8 um3 (7.4-10.4); Red Blood Count 3.86 10^6/ul (4.0-5.4); Red Cell Distribution Width 15 % (10.5-15)
[2017-01-16 11:37] LABS: Erythrocyte Sed Rate 50 mm/Hr (0-40)
[2017-01-16] MEDS: cefTRIAXone VIAL(*) 1,000 MG in NS 0.9% 50 ML* 50 ML IVPB SCH (13:51)
--- NOTE | 2017-01-16 16:26 | CONS ---
CC: Dr. Maicol Lorenzana; Dr. Mckenzie Mendoza CONSULTATION REPORT: DATE OF CONSULT: 01/16/17 PRIMARY CARE PROVIDER: Dr. Maicol Lorenzana. PRIMARY MARKETING FINANCIAL ANALYST: Dr. Mckenzie Mendoza. ATTENDING PHYSICIAN: Dr. Va Baron (dictated by Iqra Hernández NP). PHYSICIAN REQUESTING CONSULTATION: Dr. Mckenzie Mendoza. REASON FOR CONSULTATION: Possible pneumonia. HISTORY OF PRESENT ILLNESS: Ms. Egan is a 71-year-old female with past medical history significant for hypertension, hyperlipidemia, and tricuspid and mitral valve disorders, atrial flutter, atrial fibrillation, who presented to the hospital for Tikosyn loading. The patient states that she has recently had a poor appetite mostly due to not having any taste with food. She suspects this is secondary to medications. From November to December, the patient lost 10 pounds. The patient's states that friends had noticed that she has lost weight back in September when they have not seen her since the winter. The patient reports a cough at bedtime for a month. She reports it is nonproductive , dry, and hacking. She states sipping water often will stop the cough. She denies any postnasal drip. She has some shortness of breath with these coughing episodes. She denies any fever or chills, but reports feeling cold. She denies any chest pain, orthopnea. While in the hospital, the patient has been started on a Tikosyn load. She was noted last night to be hypoxic with oxygen saturations at 88% on room air. She was placed on oxygen. She has been afebrile. She had a chest x-ray today showing active pulmonary interstitial edema with recommended followup. The patient had labs significant for leukocytosis with a white blood cell count of 12, ESR 50, D- dimer 318, sodium of 131, potassium of 3.3, magnesium 1.7, BNP 476. Hospitalists were asked to consult on the patient in regards to pneumonia and hypoxia. PAST MEDICAL HISTORY: 1. Hypertension. 2. Hyperlipidemia. 3. Tricuspid and mitral valve disorders. 4. Atrial fibrillation. 5. Atrial flutter. PAST SURGICAL HISTORY: 1. Status post breast biopsy. 2. Status post hysterectomy. MEDICATIONS: Home medications include: 1. Lipitor 20 mg oral daily at bedtime. 2. Aspirin 81 mg oral daily. 3. Calcium carbonate 1000 mg oral daily. 4. Fish oil 2000 mg oral daily. 5. Ascorbic acid 500 mg oral daily. 6. Eliquis 5 mg oral twice daily. 7. Vitamin B complex 1 tablet oral daily. 8. Vitamin D 2000 units oral daily. 9. Sotalol 80 mg oral twice daily, which she had transitioned to metoprolol succinate for 50 mg oral twice daily 4 days prior to admission in preparation for Tikosyn. Hospital medications: 1. Eliquis 5 mg oral twice daily. 2. Ascorbic acid 500 mg oral daily. 3. Aspirin 81 mg oral daily. 4. Atorvastatin 20 mg oral daily. 5. Tikosyn 125 mcg oral twice daily. 6. Metoprolol succinate 50 mg oral twice daily. 7. Potassium chloride 40 mEq once. 8. Magnesium 2 g IV once. ALLERGIES: No known drug allergies. FAMILY HISTORY: The patient's father had a history of hypertension and lung cancer. The patient's mother had a history of CVA, hypertension. The patient' s sister has a history of ovarian cancer. SOCIAL HISTORY: The patient denies tobacco or recreational drug use. She occasionally drinks alcoholic beverages. The patient lives with her , Dr. Ramon Egan. Dr. Egan will be Mrs. Egan' surrogate decision maker in the event she is unable to make decisions for herself. REVIEW OF SYSTEMS: I performed a 14-point review of systems. All the pertinent positives and negatives are mentioned in the history of present illness. The remaining review of systems are negative. PHYSICAL EXAMINATION: Vital Signs: Temperature 97.6, heart rate 128, respiratory rate 20, O2 sat 95% on 3 L via nasal cannula, blood pressure 152/ 82. General Appearance: The patient is alert, pleasant, appears to be in no acute distress. Head: Normocephalic, atraumatic. EENT: Pupils are equal and reactive light. Extraocular movements are intact. Cardiovascular: Regular rate and rhythm. S1 and S2 are present. There are no murmurs, rubs, or gallops heard. Extremities: There is no lower extremity edema. DP and PT pulses 2+ and symmetric. Respiratory: There is no accessory muscle use. The lungs are clear to auscultation in the upper lobes, but she has crackles in bilateral bases. Abdomen: Soft, nontender, nondistended. There are bowel sounds present x4. Musculoskeletal: There is no clubbing or cyanosis noted. The patient exhibits good strength in all extremities. Skin: There are no rashes or abnormalities seen. Neurological: Cranial nerves II though XII are grossly intact. The patient is able to move all extremities. She is alert and oriented x4. Psychological: The patient is calm and cooperative. DIAGNOSTIC STUDIES/LABORATORY DATA: Sodium 131, potassium 3.3, chloride 101, CO2 25, BUN 11, creatinine 0.78, glucose 99. Magnesium 1.7, BNP 476, ESR 50, D- dimer 318. White blood cell count 12.0, hemoglobin 11.6, hematocrit 34, and platelet count 365. EKG shows a sinus rhythm and atrial premature complex with a rate of 89. This EKG is similar to previous EKGs and there is T-wave inversion noted in lead V2. Chest x-ray from today. Radiologist's impression: Suspect pulmonary interstitial edema. Recommend followup. IMPRESSION: Ms. Egan is a 71-year-old female with past medical history significant for hypertension, hyperlipidemia, atrial flutter, atrial fibrillation, and tricuspid and mitral valve disorder, who presented to the hospital for Tikosyn load with Cardiology. The hospitalists were asked to consult on this patient for a possible pneumonia. ASSESSMENT/PLAN: 1. Pneumonia with hypoxia. We will start the patient on ceftriaxone and doxycycline. We will place her on doxycycline instead of azithromycin in the setting of Tikosyn. We will check urine for Legionella and S. pneumoniae. We will also get a sputum sample if she is able to produce sputum sample. We will follow her leukocytosis. She is currently afebrile. With her hypoxia she will have supplemental oxygen, we will try to wean as able. If the patient continues to be hypoxic and becomes short of breath, we will consider getting a CTA to rule out a pulmonary embolus. 2. Paroxysmal atrial fibrillation. The patient will be continued on her Tikosyn loading per Cardiology. She will have a goal to have her electrolytes, potassium greater than 4 and magnesium greater than 2. She is going to receive electrolyte replacements today. She will also be continued on her home Eliquis management per Cardiology. 3. Possible interstitial edema. The findings on the x-ray are congestive heart failure versus an infection. For now, we are going to treat the patient for pneumonia. She will get an echocardiogram to eval her heart function. We will hold on diuretics at this time. 4. Electrolyte abnormalities. Hyponatremia, hypokalemia, and hypomagnesia. The patient will receive replacement. 5. Weight loss and anorexia. The patient currently does not want to have a CT of her chest, abdomen, and pelvis while she is inpatient. She would like to postpone this to being an outpatient and Dr. Lorenzana is aware. We need to rule out a possible neoplastic process. 6. Fluids, electrolytes, and nutrition. She will be continued on heart healthy diet. 7. DVT prophylaxis. The patient will be continued on Eliquis. 8. Code status. Full code. 9. Disposition. Inpatient with disposition per Cardiology. TIME SPENT: Time for this consultation was approximately 45 minutes, greater than half of that was spent with the patient and the discussing medications, past medical history, and events leading up to her arrival. Reviewed by MIKE ABEL 01/16/17 1751 [id number]/[facility] #: [id number] BRETT
[2017-01-16] MEDS ORDERED: Potassium Chlor TAB* 10 MEQ TAB.ER PO ONE (16:41)
[2017-01-16] MEDS ORDERED: Furosemide TAB* 20 MG PO ONE (16:41)
[2017-01-16] MEDS ORDERED: Iohexol 300* (CONTRAST) 10 ML SDV IV ONE (16:46)
--- NOTE | 2017-01-16 17:33 | ECHO ---
Patient: GALE BISHOP [facility] Rec#: [id number] : 1945 Date: 01/16/2017 Age: 71y Height: 167.64 cm / 66.0 in Weight: 58.06 kg / 128.0 lbs Sex: F BSA: 1.65 Room#: 453 Admit Date#: 01/14/2017 Type: Inpatient Referring: Mckenzie Mendoza MD Reading: Mckenzie Mendoza MD Wire Cutter: Iqra Olivares RDCS CC: Maicol Lorenzana MD Transthoracic Echocardiogram Indication: PAF, CHF BP: 152/82 HR: 67 Rhythm: A-Fib Findings History: HTN, HLD, SVT, a-flutter. Technical Comments: The study quality is good. Completed at 1415. Left Ventricle: The left ventricular chamber size is decreased. Moderate concentric left ventricular hypertrophy is observed. Global left ventricular wall motion and contractility are within normal limits. The left ventricle appears hyperdynamic. The estimated ejection fraction is greater than 65%. The left ventricular diastolic filling pattern is consistent with pseudonormalization. Left Atrium: The left atrium is severely dilated. Right Ventricle: Moderator Band present. The right ventricular cavity size is normal. The right ventricle wall thickness is mildly increased. The right ventricular global systolic function is low normal. Right Atrium: The right atrial cavity size is severely dilated. Aortic Valve: The aortic valve is trileaflet. The aortic valve leaflets are mildly thickened. There is no evidence of aortic regurgitation. There is no evidence of aortic stenosis. Mitral Valve: There is mitral annular calcification. The mitral valve leaflets are mildly thickened. There is moderate mitral regurgitation. There is borderline mitral stenosis. Tricuspid Valve: The tricuspid valve leaflets are normal. There is mild to moderate tricuspid regurgitation. The right ventricular systolic pressure is estimated at 49 mmHg. There is evidence of moderate pulmonary hypertension. There is no tricuspid stenosis. Pulmonic Valve: The pulmonic valve appears normal. There is a trace pulmonic regurgitation. There is no pulmonic stenosis. Pericardium: There is no significant pericardial effusion. A left pleural effusion is present. Aorta: There is no dilatation of the ascending aorta. There is no dilatation of the aortic arch. The aortic root is normal in size. Pulmonary Artery: The main pulmonary artery appears normal. Venous: The inferior vena cava is dilated. There is a greater than 50% respiratory change in the inferior vena cava dimension. Conclusions The left ventricular chamber size is decreased. Moderate concentric left ventricular hypertrophy is observed. Global left ventricular wall motion and contractility are within normal limits. The left ventricle appears hyperdynamic. The estimated ejection fraction is greater than 65%. The left ventricular diastolic filling pattern is consistent with pseudonormalization. The right ventricle wall thickness is mildly increased. The right ventricular global systolic function is low normal. The left atrium is severely dilated. The right atrial cavity size is severely dilated. The aortic valve leaflets are mildly thickened. There is mitral annular calcification. The mitral valve leaflets are mildly thickened. There is moderate mitral regurgitation. There is borderline mitral stenosis. There is mild to moderate tricuspid regurgitation. There is evidence of moderate pulmonary hypertension. The right ventricular systolic pressure is estimated at 49 mmHg. A left pleural effusion is present. Compared with prior echos of 11/15/16 and 12/26/16, PA pressure not significantly changed, LV function is stable, RV hypokinesis is new and pleural effusion is new. Measurements Name Value Normal Range RVIDd (AP) 2D 2.7 cm (0.9 - 2.6) RVDdMajor (2D) 3.4 cm (2.2 - 4.4) RVAW (2D) 0.6 cm (0.2 - 0.5) RAd ISD 4CH 6.5 cm (3.4 - 4.9) RA (A4C)W 4.2 cm (2.9 - 4.6) IVSd (2D) 1.3 cm (0.6 - 1) LVPWd (2D) 1.3 cm (0.6 - 1) LVIDd (2D) 3.3 cm (3.6 - 5.4) LVIDs (2D) 2 cm - LV FS (2D) 40 % (25 - 45) EF Teichholz (2D) 72 % - Aortic Annulus 2 cm (1.4 - 2.6) Ao root diameter (2D) 3 cm (2.1 - 3.5) Ascending Ao 2.7 cm (2.1 - 3.4) Aortic arch 2.2 cm (1.8 - 3.4) LA dimension (AP) 2D 4.5 cm (2.3 - 3.8) LAd ISD 4CH 7.1 cm (2.9 - 5.3) LA ISD 4CH W 4.9 cm (2.5 - 4.5) Name Value Normal Range LA ESV SP 4CH (A/L) 153 ml - LA ESV SP 2CH (A/L) 195 ml - LA ESV BP (A/L) 179 ml - LA ESV BP (A/L) index 108 ml/m2 - LA ESV SP 4CH (MOD) 142 ml - LA ESV SP 2CH (MOD) 185 ml - Name Value Normal Range MV E-wave Vmax 1.45 m/sec - MV deceleration time 277.5 msec - MV A-wave Vmax 0.51 m/sec - MV E:A ratio 2.85 ratio - LV septal e' Vmax 0.04 m/sec - LV lateral e' Vmax 0.03 m/sec - LV E:e' septal ratio 36.25 ratio - LV E:e' lateral ratio 48.33 ratio - Name Value Normal Range AV Vmax 1.56 m/sec - AV VTI 35.1 cm - AV peak gradient 9.78 mmHg - AV mean gradient 6.32 mmHg - LVOT Vmax 1.1 m/sec - LVOT VTI 25.36 cm - LVOT peak gradient 4.9 mmHg - LVOT mean gradient 3.14 mmHg - ORALIA Vmax 0.49 m/sec - Name Value Normal Range MV Vmax 1.73 m/sec - MV VTI 46.59 cm - MV peak gradient 12.1 mmHg - MV mean gradient 3.03 mmHg - MV PHT 56.8 msec - MR Vmax 5.4 m/sec - MR VTI 180.3 cm - MR flow (PISA) 163.1 ml/sec - MR PISA radius 0.67 cm - MR alias Vmax 57.42 cm/sec - MVA (PHT) 3.86 cm2 - Name Value Normal Range TR Vmax 2.9 m/sec - TR peak gradient 34 mmHg - RAP 15 mmHg - RVSP 49 mmHg - IVC diameter 2.13 cm - Name Value Normal Range PV Vmax 0.83 m/sec - PV peak gradient 2.76 mmHg -
--- NOTE | 2017-01-16 17:56 | RAD ---
INDICATION: Abnormal chest x-ray and weight loss evaluate for pulmonary edema versus other process. COMPARISON: Comparison is made with prior chest x-ray studies from November 14, 2016 and January 16, 2017. TECHNIQUE: A CT scan of the chest was performed with intravenous contrast following intravenous injection of 79 ml of Omnipaque 300 nonionic contrast. Contiguous axial sections were obtained from the lung apices through the lung bases. Images were reconstructed in the coronal and sagittal planes. FINDINGS: There is moderate centrilobular emphysematous change. There is mild prominence of the interstitial markings and thickening of the fissures and scattered patchy infiltrates. There are more confluent dependent bilateral lower lobe infiltrates and small bilateral pleural effusions. These findings are nonspecific although would be most consistent with congestive heart failure or pneumonia. There are enlarged mediastinal lymph nodes present in the pretracheal, aorticopulmonary window and subcarinal regions measuring up to 1.5 cm in transverse dimension. There is a slightly prominent right hilar lymph node measuring 1.3 cm in transverse dimension. The heart is mildly enlarged. No pericardial effusion is present. There is mitral annular calcification. Note is also made of coronary artery calcifications. The thoracic aorta is normal in caliber. There is moderate calcific plaque present. No acute findings are seen on the images of the upper abdomen. No significant focal osseous abnormality is seen. IMPRESSION: 1. FINDINGS MOST CONSISTENT WITH CONGESTIVE HEART FAILURE OR PNEUMONIA. RECOMMEND FOLLOW-UP CHEST X-RAYS TO RESOLUTION. 2. MEDIASTINAL LYMPHADENOPATHY POSSIBLY REACTIVE IF THE PATIENT HAS PNEUMONIA ALTERNATIVELY A NEOPLASTIC PROCESS CANNOT BE RULED OUT. 3. MODERATE CENTRILOBULAR EMPHYSEMA.
[2017-01-16] MEDS: DOXYcycline CAP(*) 100 MG PO SCH (20:52)
[2017-01-17 06:53] LABS: Hematocrit 31 % (35-47); Hemoglobin 10.4 g/dl (12.0-16.0); Mean Corpuscular HGB Conc 34 g/dl (31-36); Mean Corpuscular Hemoglobin 29 pg (27-31); Mean Corpuscular Volume 86 fL (80-97); Mean Platelet Volume 8 um3 (7.4-10.4); Red Blood Count 3.57 10^6/ul (4.0-5.4); Red Cell Distribution Width 14 % (10.5-15); White Blood Count 8.4 10^3/ul (3.5-10.8)
[2017-01-17 07:02] LABS: BUN/Creatinine Ratio 11.4 (8-20); Calcium 9.7 mg/dL (8.6-10.3); Magnesium 2.1 mg/dL (1.9-2.7); Potassium 4.4 mmol/L (3.5-5.0)
[2017-01-17 07:52] VITALS: BP 129/73
[2017-01-17] MEDS: Ascorbic Acid TAB* 500 MG PO SCH (09:04)
[2017-01-17] MEDS: Apixaban* 5 MG TAB PO SCH (09:04)
[2017-01-17] MEDS: Aspirin EC Low Dose* 81 MG TAB.EC PO SCH (09:04)
[2017-01-17] MEDS: Metoprolol Succinate XL TAB* 50 MG PO SCH (09:04)
[2017-01-17] MEDS: Dofetilide CAP* 125 MCG PO SCH (09:04)
[2017-01-17] MEDS: DOXYcycline CAP(*) 100 MG PO SCH (09:04)
[2017-01-17] MEDS: Atorvastatin* 20 MG TAB PO SCH (09:04)
[2017-01-17] MEDS: cefTRIAXone VIAL(*) 1,000 MG in NS 0.9% 50 ML* 50 ML IVPB SCH (12:01)
--- NOTE | 2017-01-25 02:38 | DS ---
CC: Dr. Maicol Lorenzana; Dr. Mendoza * DISCHARGE SUMMARY: DATE OF ADMISSION: 01/14/17 DATE OF DISCHARGE: 01/17/17 HISTORY OF PRESENT ILLNESS: Swapna Egan is a 71-year-old woman, who presented in November with paroxysmal AFib. She was started on anticoagulation as well as beta- blockers, but she continued to have symptomatic episodes. There was an outpatient sotalol was started, which did control the dysrhythmias; however, it led to fatigue and additionally, the patient has been anorexic and losing weight and, therefore, sotalol was discontinued and she was admitted for elective Tikosyn loading on January 14. Tikosyn was initially started at 250 mcg b.i.d. and her QT interval on this was 475 milliseconds with incomplete loading and, therefore, the dose was decreased to 125 mcg b.i.d. and she was continued to load. The patient, during the admission developed significant coughing, shortness of breath and was found to be hypoxic, requiring oxygen. Further history revealed that the patient had a dry cough at night for quite a long time, for which she takes cold water, but it worsened significantly on admission. She has been drinking even more water on admission. A chest x-ray was obtained, which was interpreted as pulmonary interstitial edema, which was new from her chest x-ray in November. As new congestive heart failure was unexpected, a followup CT scan was ordered, which confirmed pulmonary edema, most consistent with congestive heart failure, additionally showed mediastinal lymphadenopathy with a differential of reactive versus neoplastic and moderate central lobular emphysema was noted and small pleural effusions. Calcific plaque was noted in the thoracic aorta and cardiomegaly was also noted. Labs were checked with the hypoxia and white count was elevated at 12. Sed rate was elevated at 50. Consultation with the Hospitalist was obtained for possible infection and because of weight loss, anorexia and new chest x-ray finding of the mediastinal node, I also had concerns about the possibility of malignancy. The patient was given antibiotics initially, which included doxycycline 100 mg b.i.d. and ceftriaxone. She immediately felt better with decreased coughing with the antibiotics, which were infused midday, but I did additionally give her 20 mg of oral Lasix once at 4:41 p.m. same day. On the day of discharge, the patient felt cough-free, energy level was better, breathing was better, and her saturations were normal on room air. She was in sinus rhythm and walking well. The patient additionally on admission again developed hypokalemia, hyponatremia , and hypomagnesemia. She was drinking a lot of free water for her cough. Her magnesium and potassium were aggressively repleted. PHYSICAL EXAMINATION: On exam on the day of discharge, the patient's blood pressure was 129/73, she was in sinus rhythm with a pulse of 60 beats a minute, respiratory rate was 20, oxygen saturation 96% with 2 L nasal cannula and 90% on room air. Temperature 98.1 and she had been afebrile throughout the admission. DIAGNOSTIC STUDIES/LAB DATA: Labs on the on the day of discharge showed a white count had improved to 8.4, hemoglobin was 10.4, hematocrit 31 (decreased from 34) and on 12/16/16, hematocrit was 34 and sed rate 50. Her D-dimer was 318. Labs on admission: Sodium 133, potassium 3.7, chloride 101, bicarb 27, BUN 15, creatinine 0.88. Magnesium 1.9, went to 1.7 on 12/16/16 and on discharge was 2.1. BNP was 476 on 12/16/16. C-reactive protein was 35. Total protein 6.2. Albumin 3.2. AST 16, ALT 8. CT and chest x-ray reports as above. Echocardiogram obtained showing small left ventricular chamber diameter, moderate left ventricular hypertrophy with an ejection fraction of over 65% and pseudonormal diastolic filling pattern. The right ventricular systolic function was in the lower ranges of normal. She had aortic valve sclerosis, mitral annular calcification, and mitral valve sclerosis with moderate mitral insufficiency, borderline mitral valve stenosis with a peak E wave velocity of 1.45 meters per second, mitral valve deceleration time of 277 meters per second, and she had [id number] tricuspid insufficiency and PA pressure of 49 mmHg. Pleural effusion was noted. In summary, Swapna Egan is a 71-year-old woman, admitted with paroxysmal AFib for Tikosyn loading. The Tikosyn loading was successful with no ventricular ectopy and her EKG on the day of discharge showed normal sinus rhythm, 58 beats a minute with a single PAC, normal AV and IV conduction time, her corrected QT interval was 465 milliseconds, and ST segments unremarkable. First day was complicated by hypoxia with interstitial edema, small pleural effusion with a differential of congestive heart failure versus infectious process and she has been treated for both. The patient's stay was further complicated by electrolyte disturbances including recurrence of hypokalemia, hypomagnesemia, and hyponatremia and all of this preceded Lasix. DISCHARGE MEDICATIONS: She was discharged with the following medications: 1. Fish oil. 2. Vitamin C. 3. Atorvastatin 20 mg a day. 4. Aspirin 81 mg a day. 5. Eliquis 5 mg b.i.d. 6. Calcium carbonate 1000 mg a day. 7. Toprol-XL 50 mg b.i.d. 8. Vitamin B complex. 9. Amoxicillin 875 mg b.i.d. 10. Doxycycline 100 mg b.i.d. 11. Dofetilide 125 mcg b.i.d. 12. Lasix 20 mg orally weekly. 13. Potassium 10 mEq weekly. Verbal discussions were made with Dr. Robbins about her chest x-ray and CT findings and discussions about her electrolyte disturbances were made with Dr. Galicia. As an outpatient, the tentative plans are to follow up with imaging, we will discuss with her primary care physician, potential consultation with Pulmonary for emphysematous changes with no history of smoking or asthma and follow up for mediastinal nodes and appropriate followup imaging and we can follow up with urine for sodium and magnesium and potassium abnormalities. This was all discussed with the patient and I will be seeing her in 1 week's time in my office. [id number]/CPS #: [id number] MTDD
== END 2017-01-17 14:30 | disposition home or self-care (01) | DRG 308 ==
LOC: MEDTELE 09:20
PROVIDERS: ADMIT Specialist; ATTEND Specialist
DX: I48.0 Paroxysmal atrial fibrillation (principal); J18.9 Pneumonia, unspecified organism; I11.0 Hypertensive heart disease with heart failure; E87.1 Hypo-osmolality and hyponatremia; D47.2 Monoclonal gammopathy; E83.42 Hypomagnesemia; I50.9 Heart failure, unspecified; I08.1 Rheumatic disorders of both mitral and tricuspid valves; I48.92 Unspecified atrial flutter; E78.5 Hyperlipidemia, unspecified; E87.6 Hypokalemia; J43.2 Centrilobular emphysema; I70.0 Atherosclerosis of aorta; R59.0 Localized enlarged lymph nodes; R63.4 Abnormal weight loss; E07.9 Disorder of thyroid, unspecified; Z80.1 Family history of malignant neoplasm of trachea, bronchus and lung; Z82.49 Family history of ischemic heart disease and other diseases of the circulatory system; Z80.41 Family history of malignant neoplasm of ovary; Z72.89 Other problems related to lifestyle; Z68.20 Body mass index [BMI] 20.0-20.9, adult; Z82.3 Family history of stroke; Z23 Encounter for immunization; Z90.710 Acquired absence of both cervix and uterus
CPT/HCPCS: 36415; 71020; 71260; 80048; 80053; 83735; 83880; 85025; 85379; 85652; 86141; 87899; 90732; 93005; 93306; A9270-GY; J0696; J3475; J3490; Q9967

== ENCOUNTER 2018-08-01 11:02 | Inpatient (IN) | payer MEDICARE ==
--- OUTSIDE RECORDS SUMMARY | 2018-08-01 11:16 | XMS REPORT | Continuity of Care Document ---
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 Onset: edema Loss of appetite Maicol Lorenzana M.D. Onset: 01/09/2017 Weight decreased Maicol Lorenzana M.D. Onset: 01/09/2017 Atrial fibrillation Maicol Lorenzana M.D. Onset: 11/21/2016 Essential hypertension Maicol Lorenzana M.D. Onset: 06/21/2015 Cough Maicol Lorenzana M.D. Onset: 08/08/2013 Pure hypercholesterolemia Maicol Lorenzana M.D. Onset: 06/02/2013 Benign essential hypertension Maicol Lorenzana M.D. Onset: 02/06/2011 Family History Description No Information Available Social History Type Date Description Comments Sex Unknown Allergies, Adverse Reactions, Alerts Description No Known Drug Allergies Medications Active Medications SIG Qnty Indications Ordering Date Provider ssionex 5ml twice a day as 115ml R05 Maicol Bansal 07/14/2018 Pennkinetic needed cough MD Tori Extended Release 10-8mg/5ML Suer Atorvastatin Take 1 Tablet By 90tabs Maicol Lees 11/19/2017 Calcium Mouth Every Day Jermaine Lorenzana 10mg Tablets Cozaar 1 by mouth every 90tabs Fartun 10/22/2017 25mg Tablets day Yonatan, FRONT [employer] WHE[employer] O[employer]ATOR Metoprolol Tartrate 1 by mouth twice a 180tabs Maicol Lees 02/16/2017 day Jermaine Lorenzana 50mg Tablets Dofetilide 1 by mouth twice Maicol Lees 02/16/2017 125mcg daily Jermaine Lorenzana Capsules Furosemide Take 1 Tablet By 90tabs Maicol Lees 02/16/2017 20mg Mouth Every Day Jermaine Lorenzana Tablets Lipitor take 1 tablet by 90tabs Maicol Lees 11/28/2009 20mg mouth every day Jermaine Lorenzana Tablets Calcium 600 1 po qd 90tabs Unknown 600mg Tablets Vitamin D 1 po qd Unknown 1000Unit Capsules Fish Oil 1 po qd Unknown 1000mg Capsules Eliquis take one tablet by Unknown 5mg Tablets mouth twice a day for atrial fibrillation Vitamin C chew 1 tablet every Unknown 500mg day (supplement) Chewtabs Vitamin B Complex 1 by mouth every Unknown day Tablets History Medications Atorvastatin Calcium 1 by mouth 90tabs Maicol Lees 02/16/2017 - 20mg Tablets every day Jermaine Lorenzana 10/21/2017 Zithromax Z-Kalyan as directed 1Pack Maicol Lees 08/08/2013 - 250mg Tablets Jermaine Lorenzana 05/31/2014 Celebrex 1 po qd 30caps Maicol Lees 06/02/2013 - 200mg Capsules Jermaine Lorenzana 05/31/2014 Iron Supplement 1 by mouth 100tabs Maicol Lees 06/02/2013 - 325(65Fe) mg every day Jermaine Lorenzana 06/01/2014 Tablets Lisinopril 1 by mouth 90tabs Maicol Lees 04/11/2010 - 10mg Tablets every day Jermaine Lorenzana 11/21/2016 Hydrochlorothiazide 1 by mouth 90tabs Maicol Lees 03/07/2010 - 25mg Tablets every day Jermaine Lorenzana 11/21/2016 Lipitor Take One Tablet 60tabs Maicol Lees 06/19/2009 - 20mg Tabs By Mouth One Jermaine Lorenzana 03/07/2010 Time Daily Microzide Take One 60caps Maicol Lees 06/19/2009 - 12.5mg Caps Capsule By Jermaine Lorenzana 03/07/2010 Mouth One Time Daily Microzide Take One 30caps Maicol Lees 12/20/2008 - 12.5mg Caps Capsule By Jermaine Lorenzana 03/07/2010 Mouth One Time Daily Lotrisone use bid 30unadam Lees 06/15/2008 - Cream Jermaine Lorenzana 06/15/2008 Lidex use bid 30units Maicol Lees 05/09/2007 - 0.05% Cream Jermaine Lorenzana 03/07/2010 Lipitor Take One Tablet 30tabs Maicol Lees 01/02/2005 - 20mg Tabs By Mouth One Jermaine Lorenzana 03/07/2010 Time Daily Ambien 1 PO QHS prn 30tabs Maicol Lees 12/19/2004 - 5mg Tablets Sleep Jermaine Lorenzana 11/06/2006 Estrogen Patch 0units [facility] 03/07/[address] Hydrochlorothiazide 1 po qd 90units Maicol Lees 05/18/2003 - 12.5 Jermaine Lorenzana 03/07/2010 Aspirin 1 po qd Unknown - 81mg Tablets 10/21/2017 Multivitamins 1 po qd 100tabs Unknown - Tablets 10/21/2017 Metoprolol Succinate ER 1 by mouth 90tabs Maicol Lees - 25mg every day Jermaine Lorenzana 02/16/2017 Tablets ER 24HR Potassium Chloride ER 1 by mouth Maicol Lees - 20Meq weekly Jermaine Lorenzana 07/14/2018 Tablets ER Omeprazole 1 by mouth Unknown - 20mg Capsules DR every day 02/18/2018 Immunizations CPT Code Status Date Vaccine Lot # [id number] Given 06/02/2013 Zostivax [id number] Given 02/06/2011 Tdap Tetanus, W Pertussis [id number] Vital Signs Date Vital Result Comment 07/14/2018 1:23pm BP Systolic 130 mmHg BP Diastolic 80 mmHg Heart Rate 80 /min Body Temperature 97.5 F Respiratory Rate 12 /min Height 65.5 inches 5'5.50" Weight 148.00 lb BMI (Body Mass Index) 24.3 kg/m2 06/17/2018 11:26am BP Systolic 124 mmHg BP Diastolic 70 mmHg Heart Rate 76 /min Body Temperature 98.0 F Respiratory Rate 16 /min Height 65.5 inches 5'5.50" Weight 146.00 lb BMI (Body Mass Index) 23.9 kg/m2 02/18/2018 10:09am BP Systolic 128 mmHg BP Diastolic 86 mmHg Heart Rate 72 /min Body Temperature 98.5 F Respiratory Rate 16 /min Height 65.5 inches 5'5.50" Weight 151.00 lb BMI (Body Mass Index) 24.7 kg/m2 11/19/2017 12:57pm BP Systolic 118 mmHg BP Diastolic 60 mmHg Heart Rate 70 /min Body Temperature 97.7 F Height 65.5 inches 5'5.50" Weight 153.00 lb BMI (Body Mass Index) 25.1 kg/m2 10/22/2017 7:57am BP Systolic 178 mmHg BP Diastolic 84 mmHg Heart Rate 68 /min Body Temperature 97.9 F Height 65.5 inches 5'5.50" Weight 151.00 lb BMI (Body Mass Index) 24.7 kg/m2 02/16/2017 10:59am BP Systolic 158 mmHg BP Diastolic 80 mmHg Heart Rate 60 /min Body Temperature 97.2 F Respiratory Rate 16 /min O2 % BldC Oximetry 96 % Height 65.5 inches 5'5.50" Weight 132.38 lb BMI (Body Mass Index) 21.7 kg/m2 01/09/2017 5:56pm BP Systolic 138 mmHg BP Diastolic 72 mmHg Heart Rate 66 /min Body Temperature 97.0 F Height 65.5 inches 5'5.50" Weight 130.50 lb BMI (Body Mass Index) 21.4 kg/m2 11/21/2016 1:06pm BP Systolic 138 mmHg BP Diastolic 88 mmHg Heart Rate 88 /min Irr Body Temperature 97.0 F Height 65.5 inches 5'5.50" Weight 143.00 lb BMI (Body Mass Index) 23.4 kg/m2 11/14/2016 4:13pm BP Systolic 106 mmHg BP Diastolic 64 mmHg Heart Rate 90 /min Body Temperature 98.1 F Height 65.5 inches 5'5.50" Weight 137.12 lb BMI (Body Mass Index) 22.5 kg/m2 06/21/2015 12:01pm BP Systolic 124 mmHg BP Diastolic 70 mmHg Heart Rate 60 /min Body Temperature 97.8 F Respiratory Rate 18 /min Height 65.5 inches 5'5.50" Weight 141.00 lb BMI (Body Mass Index) 23.1 kg/m2 06/01/2014 4:37pm BP Systolic 130 mmHg BP Diastolic 70 mmHg Heart Rate 60 /min Body Temperature 97.3 F Height 65.5 inches 5'5.50" Weight 144.25 lb BMI (Body Mass Index) 23.6 kg/m2 06/02/2013 11:38am BP Systolic 140 mmHg BP Diastolic 70 mmHg Heart Rate 58 /min Body Temperature 97.5 F Respiratory Rate 18 /min Height 65.5 inches 5'5.50" Weight 145.00 lb BMI (Body Mass Index) 23.8 kg/m2 02/19/2012 10:10am BP Systolic 140 mmHg BP Diastolic 84 mmHg Heart Rate 76 /min Body Temperature 96.3 F Height 65.5 inches 5'5.50" Weight 150.00 lb BMI (Body Mass Index) 24.6 kg/m2 02/06/2011 11:13am BP Systolic 126 mmHg BP Diastolic 70 mmHg Heart Rate 72 /min Height 65.5 inches 5'5.50" Weight 150.00 lb BMI (Body Mass Index) 24.6 kg/m2 08/01/2010 3:06pm BP Systolic 124 mmHg BP Diastolic 68 mmHg Height 65.5 inches 5'5.50" Weight 154.00 lb BMI (Body Mass Index) 25.2 kg/m2 03/07/2010 9:39am BP Systolic 170 mmHg BP Diastolic 100 mmHg Heart Rate 80 /min Height 65.5 inches 5'5.50" Weight 157.00 lb BMI (Body Mass Index) 25.7 kg/m2 06/15/2008 11:03am BP Systolic 114 mmHg BP Diastolic 76 mmHg Heart Rate 72 /min Height 65.5 inches 5'5.50" Weight 150.00 lb BMI (Body Mass Index) 24.6 kg/m2 05/09/2007 9:44am BP Systolic 114 mmHg BP Diastolic 70 mmHg Heart Rate 78 /min Height 65.5 inches 5'5.50" Weight 158.00 lb BMI (Body Mass Index) 25.9 kg/m2 11/12/2006 10:48am BP Systolic 120 mmHg BP Diastolic 70 mmHg Heart Rate 68 /min Height 65.5 inches 5'5.50" Weight 154.00 lb BMI (Body Mass Index) 25.2 kg/m2 11/06/2006 9:51am BP Systolic 128 mmHg BP Diastolic 90 mmHg Heart Rate 68 /min Body Temperature 97.6 F Height 65.5 inches 5'5.50" Weight 154.00 lb BMI (Body Mass Index) 25.2 kg/m2 02/27/2005 9:14am BP Systolic 132 mmHg BP Diastolic 88 mmHg Height 65.5 inches 5'5.50" 01/02/2005 10:23am BP Systolic 138 mmHg BP Diastolic 90 mmHg Heart Rate 60 /min Height 65.5 inches 5'5.50" Weight 158.00 lb BMI (Body Mass Index) 25.9 kg/m2 12/19/2004 11:35am BP Systolic 132 mmHg BP Diastolic 80 mmHg Heart Rate 66 /min Height 65.5 inches 5'5.50" Weight 155.00 lb BMI (Body Mass Index) 25.4 kg/m2 08/17/2003 9:20am BP Systolic 120 mmHg BP Diastolic 80 mmHg Heart Rate 68 /min Height 65.5 inches 5'5.50" 06/15/2003 9:30am BP Systolic 130 mmHg BP Diastolic 64 mmHg Heart Rate 68 /min Height 65.5 inches 5'5.50" 05/18/2003 1:42pm BP Systolic 134 mmHg BP Diastolic 90 mmHg Heart Rate 72 /min Height 65.5 inches 5'5.50" Weight 163.00 lb BMI (Body Mass Index) 26.7 kg/m2 Results Test Date Facility Test Result H/L Range Note Comprehensive Metabolic 02/18/2018 [facility]) Sodium 145 mEq/L 134-149 Prof Potassium 4.4 mEq/L 3.6-5.5 Chloride 105 mEq/L 94-112 Carbon Dioxide 26 mEq/L 21-32 Glucose 103 mg/dL 70-105 BUN 10 mg/dL 6-26 Creatinine 1.1 mg/dL 0.6-1.4 BUN/Creat Ratio 9.1 CALC 8.0-36.0 Calcium 9.9 mg/dL 8.6-10.2 Total Protein 7.4 g/dL 6.4-8.3 Albumin 4.3 g/dL 3.8-5.5 Globulin 3.1 g/dL 2.0-4.8 A/G Ratio 1.4 CALC 0.6-2.3 Alk. Phosphatase 178 U/L High 30-110 1 Alt (SGPT) 19 U/L 7-35 Ast (Sgot) 27 U/L 5-34 Total Bilirubin 0.7 mg/dL 0.2-1.3 GFR Non- 52 ml/min/1.73m^ Low >=60 GFR >60 ml/min/1.73m^ >=60 Lipid Profile 02/18/2018 [facility]) Cholesterol 179 mg/dL 120- 200 Triglycerides 188 mg/dL 30-200 HDL Cholesterol 55 mg/dL 30-85 LDL (Calculated) 86 CALC 0-129 VLDL Cholesterol 38 mg/dL 0-50 HDL Risk Factor 3.3 CALC 0.0-4.4 Lipid Profile 10/22/2017 [facility] St[facility]) Cholesterol 188 mg/dL 120- 200 Triglycerides 240 mg/dL High 30-200 HDL Cholesterol 47 mg/dL 30-85 LDL (Calculated) 93 CALC 0-129 VLDL Cholesterol 48 mg/dL 0-50 HDL Risk Factor 4.0 CALC 0.0-4.4 Comp Metabolic Panel 10/04/2017 [facility] Sodium 141 mmol/L N 135-145 2 Potassium 3.8 mmol/L N 3.5-5.0 Chloride 105 mmol/L N 101-111 Co2 Carbon Dioxide 27 mmol/L N 22-32 Anion Gap 9 mmol/L N 2-11 Glucose 94 mg/dL N 70-100 Blood Urea Nitrogen 14 mg/dL N 6-24 Creatinine 1.10 mg/dL High 0.51-0.95 BUN/Creatinine Ratio 12.7 N 8-20 Calcium 9.9 mg/dL N 8.6-10.3 Total Protein 6.8 g/dL N 6.4-8.9 Albumin 3.7 g/dL N 3.2-5.2 Globulin 3.1 g/dL N 2-4 Albumin/Globulin Ratio 1.2 N 1-3 Total Bilirubin 0.60 mg/dL N 0.2-1.0 Alkaline Phosphatase 176 U/L High 34-104 Alt 13 U/L N 7-52 Ast 21 U/L N 13-39 Egfr Non- 48.6 >60 Egfr 58.7 >60 3 Xray 02/22/2017 [facility] [place] Chest W/Contrast <pending> CT Abdomen W/Contrast <pending> Laboratory test 02/16/2017 [facility] C-Reactive Protein, 3.5 mg/L 0.0-4.9 4 finding [address] [facility] [place] [address] (604)- - Immunofixatin 02/16/2017 [facility] Immunofixation See 5 Serum [address] [facility] Result, Serum Comment: [place] [address] (958)- - Immunoglobulin G, Qn, Serum 1139 mg/dL 700-1600 Immunoglobulin A, Qn, Serum 302 mg/dL 64-422 Immunoglobulin M, Qn, Serum 72 mg/dL 26-217 Iron And 02/16/2017 [facility] Iron Bind.Cap.(Tibc) 330 g/dL 250-450 [facility] [address] [place] [address] (606)- - Uibc 280 g/dL 118-369 Iron, Serum 50 g/dL 27-139 Iron Saturation 15 % 15-55 Comprehensive Metabolic 02/16/2017 [facility]) Sodium 137 mEq/L 134-149 Prof Potassium 3.8 mEq/L 3.6-5.5 Chloride 101 mEq/L 94-112 Carbon Dioxide 23 mEq/L 21-32 Glucose 106 mg/dL High 70-105 BUN 16 mg/dL 6-26 Creatinine 1.0 mg/dL 0.6-1.4 BUN/Creat Ratio 16.0 CALC 8.0-36.0 Calcium 9.9 mg/dL 8.6-10.2 Total Protein 6.8 g/dL 6.4-8.3 Albumin 3.8 g/dL 3.8-5.5 Globulin 3.0 g/dL 2.0-4.8 A/G Ratio 1.3 CALC 0.6-2.3 Alk. Phosphatase 112 U/L High 30-110 Alt (SGPT) 16 U/L 7-35 Ast (Sgot) 22 U/L 5-34 Total Bilirubin 0.7 mg/dL 0.2-1.3 GFR Non- 58 ml/min/1.73m^ Low >=60 GFR >60 ml/min/1.73m^ >=60 Complete Blood Count 02/16/2017 [facility]) WBC 7.9 x10^3/UL 3.6 -9.6 RBC 3.52 x10^6/UL Low 3.90-5.70 6 HGB 10.4 g/dL Low 12.1-17.2 7 HCT 31 % Low 36-50 8 MCV 87.0 fL 82.2-97.4 MCH 29.4 pg 27.6-33.3 MCHC 34.0 g/dL 33.0-35.5 RDW 14.7 % High 11.6-13.7 PLT 354 x10^3/UL 150-400 MPV 7.1 fL Low 7.4-10.4 Gran # 5.8 x10^3/UL 1.5-7.2 Lymph# 1.6 x10^3/UL 0.7-4.9 [place]# 0.5 x10^3/UL 0.1-0.9 Gran % 72.1 % 42.2-75.2 Lymph % 20.9 % 20.5-51.1 [place]% 7.0 % 1.7-9.3 Laboratory test 02/16/2017 [facility] Brain Natural 380 pg/mL High < 100 finding (368)- - Peptide Sedimentation Rate 34mm Laboratory test 01/09/2017 [facility] C-Reactive 20.3 mg/L High 0.0-4.[address] [place] [address] Protein, [place] [address] (246)- - PDF [id number] SEE IMAGE Protein 01/09/2017 [facility] Protein, 6.7 g/dL 6.0-8.[address] [place] [address] Total, Serum W/[place] [address] (688)- - Albumin 2.9 g/dL 2.9-4.4 Pwycj-0-Ierwyqgq 0.4 g/dL 0.0-0.4 Cbuie-6-Crjbldbj 1.0 g/dL 0.4-1.0 Beta Globulin 1.2 g/dL 0.7-1.3 Gamma Globulin 1.2 g/dL 0.4-1.8 M-Zohaib TNP Globulin, Total 3.8 g/dL 2.2-3.9 A/G Ratio 0.8 0.7-1.7 Please note: See Comment: 9 P E Interpretation, S See Comment: 10 Comprehensive Metabolic 01/09/2017 [facility] Cle[facility]) Sodium 142 mEq/L 134-149 Prof Potassium 4.0 mEq/L 3.6-5.5 Chloride 103 mEq/L 94-112 Carbon Dioxide 26 mEq/L 21-32 Glucose 76 mg/dL 70-105 BUN 19 mg/dL 6-26 Creatinine 1.0 mg/dL 0.6-1.4 BUN/Creat Ratio 19.0 CALC 8.0-36.0 Calcium 10.3 mg/dL High 8.6-10.2 11 Total Protein 7.0 g/dL 6.4-8.3 Albumin 3.8 g/dL 3.8-5.5 Globulin 3.2 g/dL 2.0-4.8 A/G Ratio 1.2 CALC 0.6-2.3 Alk. Phosphatase 102 U/L 30-110 Alt (SGPT) 12 U/L 7-35 Ast (Sgot) 17 U/L 5-34 Total Bilirubin 0.6 mg/dL 0.2-1.3 GFR Non- 58 ml/min/1.73m^ Low >=60 GFR >60 ml/min/1.73m^ >=60 Laboratory test 01/09/2017 [facility] Cle[facility]) Free T4 1.28 ng/dL 0.75- 1.54 finding TSH 5.77 mIU/L 0.50-6.00 Free T3 2.74 pg/mL 2.00-4.90 Laboratory test 01/09/2017 [facility] Sedimentation Rate 45 mm # finding (607)- - Laboratory test 01/09/2017 [facility] Cortisol - PM 9.2 2.3-11. finding [address] g/dL 9 [place] [address] (607)- - Thyroid Antibody & 01/09/2017 [facility] Thyroid Peroxidase 11 IU/mL 0-[address] (Tpo) [place] [address] (607)- - Thyroglobulin Antibody <1.0 IU/mL 0.0-0.9 12 CBC Electronic (a) 01/09/2017 [facility] WBC 9.2 3.6-9.6 (607)- - RBC 3.70 Low 3.90-5.70 Hemoglobin (Fma/CMC/CTX) 11.2 g/dL Low 12.1 - 17.2 Hematocrit (Fma/CMC/CTX) 32.6 % Low 36.1 - 50.3 Platelets 404 10^3/ul High 150-400 Lymph% 26.6 % 17.0-48.0 Mixed% 6.3 Neutrophils % 67.1 Mean Corpuscular Vol 88 82.2-97.4 Mean Corpuscular Hemoglobin 30.2 27.6-33.3 Mean Corpuscular Hemo Concen 34.3 32.0-36.0 RDW 14.1 High 11.6-13.7 Mean Platelet Volume 6.6 5.5-11.0 Basic Metabolic Panel 12/21/2016 [facility] Sodium 135 mmol/L N 133-145 13 Potassium 4.2 mmol/L N 3.5-5.0 Chloride 101 mmol/L N 101-111 Co2 Carbon Dioxide 28 mmol/L N 22-32 Anion Gap 6 mmol/L N 2-11 Glucose 101 mg/dL High 70-100 Blood Urea Nitrogen 16 mg/dL N 6-24 Creatinine 0.94 mg/dL N 0.51-0.95 BUN/Creatinine Ratio 17.0 N 8-20 Calcium 9.8 mg/dL N 8.6-10.3 Egfr Non- 58.4 N >60 Egfr 75.1 N >60 14 Laboratory test finding 12/21/2016 [facility] [place] Lyme Disease Negative N Negative 15 Serology Basic Metabolic Panel 11/20/2016 [facility] Sodium 129 mmol/L Low 133-145 16 Potassium 3.7 mmol/L N 3.5-5.0 Chloride 94 mmol/L Low 101-111 Co2 Carbon Dioxide 27 mmol/L N 22-32 Anion Gap 8 mmol/L N 2-11 Glucose 96 mg/dL N 70-100 Blood Urea Nitrogen 14 mg/dL N 6-24 Creatinine 1.08 mg/dL High 0.51-0.95 BUN/Creatinine Ratio 13.0 N 8-20 Calcium 10.1 mg/dL N 8.6-10.3 Egfr Non- 49.7 N >60 Egfr 64.0 N >60 17 Laboratory test finding 11/14/2016 [facility] Magnesium 1.2 mg/dL Low 1.9-2.7 Troponin I 0.06 ng/mL High <0.04 18 TSH (Thyroid Stim Horm) 4.23 mcIU/mL N 0.34-5.60 CBC Auto Diff 11/14/2016 [facility] White Blood Count 8.6 10^3/uL N 3.5-10.8 Red Blood Count 3.88 10^6/uL Low 4.0-5.4 Hemoglobin 12.6 g/dL N 12.0-16.0 Hematocrit 36 % N 35-47 Mean Corpuscular Volume 92 fL N 80-97 Mean Corpuscular Hemoglobin 32 pg High 27-31 Mean Corpuscular HGB Conc 35 g/dL N 31-36 Red Cell Distribution Width 14 % N 10.5-15 Platelet Count 240 10^3/uL N 150-450 Mean Platelet Volume 8 um3 N 7.4-10.4 Abs Neutrophils 5.8 10^3/uL N 1.5-7.7 Abs Lymphocytes 2.0 10^3/uL N 1.0-4.8 Abs Monocytes 0.7 10^3/uL N 0-0.8 Abs Eosinophils 0.1 10^3/uL N 0-0.6 Abs Basophils 0.1 10^3/uL N 0-0.2 Abs Nucleated RBC 0 10^3/uL N Granulocyte % 66.6 % N 38-83 Lymphocyte % 23.2 % Low 25-47 Monocyte % 7.7 % N 1-9 Eosinophil % 1.6 % N 0-6 Basophil % 0.9 % N 0-2 Nucleated Red Blood Cells % 0 N Laboratory test finding 11/14/2016 [facility] Lactic Acid 1.2 mmol/L N 0.5-2.0 19 Inr/Protime 11/14/2016 [facility] Inr 1.01 N 0.89-1.11 Comp Metabolic Panel 11/14/2016 [facility] Sodium 128 mmol/L Low 133-145 Potassium 2.9 mmol/L Low 3.5-5.0 Chloride 91 mmol/L Low 101-111 Co2 Carbon Dioxide 29 mmol/L N 22-32 Anion Gap 8 mmol/L N 2-11 Glucose 103 mg/dL High 70-100 Blood Urea Nitrogen 17 mg/dL N 6-24 Creatinine 1.37 mg/dL High 0.51-0.95 BUN/Creatinine Ratio 12.4 N 8-20 Calcium 10.0 mg/dL N 8.6-10.3 Total Protein 6.6 g/dL N 6.4-8.9 Albumin 3.6 g/dL N 3.2-5.2 Globulin 3.0 g/dL N 2-4 Albumin/Globulin Ratio 1.2 N 1-3 Total Bilirubin 0.80 mg/dL N 0.2-1.0 Alkaline Phosphatase 110 U/L High 34-104 Alt 15 U/L N 7-52 Ast 28 U/L N 13-39 Egfr Non- 37.8 N >60 Egfr 48.6 N >60 20 Laboratory test 11/14/2016 [facility] Partial 26.5 seconds N 26.0-36.3 finding Thrombo Time PTT Comprehensive 06/21/2015 [facility]) Sodium 135 mEq/L 134-149 Metabolic Prof Potassium 4.2 mEq/L 3.6-5.5 Chloride 96 mEq/L 94-112 Carbon Dioxide 31 mEq/L 21-32 Glucose 99 mg/dL 70-105 BUN 20 mg/dL 6-26 Creatinine 1.0 mg/dL 0.6-1.4 BUN/Creat Ratio 20.0 CALC 8.0-36.0 Calcium 9.9 mg/dL 8.6-10.2 Total Protein 6.8 g/dL 6.4-8.3 Albumin 4.0 g/dL 3.8-5.5 Globulin 2.8 g/dL 2.0-4.8 A/G Ratio 1.4 CALC 0.6-2.3 Alk. Phosphatase 124 U/L High 30-110 21 Alt (SGPT) 20 U/L 7-35 Ast (Sgot) 27 U/L 5-34 Total Bilirubin 0.8 mg/dL 0.2-1.3 GFR Non- 58 ml/min/1.73m^ Low >=60 GFR >60 ml/min/1.73m^ >=60 Lipid Profile 06/21/2015 Stephen Flora([facility]) Cholesterol 188 mg/dL 120- 200 Triglycerides 159 mg/dL 30-200 HDL Cholesterol 59 mg/dL 30-85 LDL (Calculated) 97 CALC 0-129 VLDL Cholesterol 32 mg/dL 0-50 HDL Risk Factor 3.2 CALC 0.0-4.4 Complete Blood Count 06/21/2015 Stephen Flora([facility]) WBC 5.5 x10^3/UL 3.6 -9.6 RBC 3.98 x10^6/UL 3.90-5.70 HGB 13.5 g/dL 12.1-17.2 HCT 39 % 36-50 MCV 98.0 fL High 82.2-97.4 MCH 34.1 pg High 27.6-33.3 MCHC 34.7 g/dL 33.0-35.5 RDW 12.8 % 11.6-13.7 PLT 291 x10^3/UL 150-400 MPV 6.9 fL Low 7.4-10.4 Gran # 3.5 x10^3/UL 1.5-7.2 Lymph# 1.6 x10^3/UL 0.7-4.9 [place]# 0.4 x10^3/UL 0.1-0.9 Gran % 62.1 % 42.2-75.2 Lymph % 30.1 % 20.5-51.1 [place]% 7.8 % 1.7-9.3 Comprehensive Metabolic 06/02/2014 [facility]af[facility] Starr([facility]) Sodium 140 mEq/L 134-149 Prof Potassium 3.6 mEq/L 3.6-5.5 Chloride 99 mEq/L 94-112 Carbon Dioxide 28 mEq/L 21-32 Glucose 88 mg/dL 70-105 BUN 19 mg/dL 6-26 Creatinine 0.9 mg/dL 0.6-1.4 BUN/Creat Ratio 21.1 CALC 8.0-36.0 Calcium 9.2 mg/dL 8.6-10.2 Total Protein 6.9 g/dL 6.4-8.3 Albumin 3.9 g/dL 3.8-5.5 Globulin 3.0 g/dL 2.0-4.8 A/G Ratio 1.3 CALC 0.6-2.3 Alk. Phosphatase 119 U/L High 30-110 22 Alt (SGPT) 19 U/L 7-35 Ast (Sgot) 25 U/L 5-34 Total Bilirubin 0.7 mg/dL 0.2-1.3 Lipid Profile 06/02/2014 Zafar Clements([facility]) Cholesterol 169 mg/dL 120- 200 Triglycerides 160 mg/dL 30-200 HDL Cholesterol 61 mg/dL 30-85 LDL (Calculated) 76 CALC 0-129 VLDL Cholesterol 32 mg/dL 0-50 HDL Risk Factor 2.8 CALC 0.0-4.4 Complete Blood Count 06/02/2014 Zafar Clements([facility]) WBC 7.4 x10^3/UL 3.6 -9.6 RBC 4.08 x10^6/UL 3.90-5.70 HGB 13.5 g/dL 12.1-17.2 HCT 39 % 36-50 MCV 95.0 fL 82.2-97.4 MCH 33.1 pg 27.6-33.3 MCHC 34.7 g/dL 33.0-35.5 RDW 11.4 % Low 11.6-13.7 PLT 269 x10^3/UL 150-400 MPV 7.2 fL Low 7.4-10.4 Gran # 5.2 x10^3/UL 1.5-7.2 Lymph# 1.9 x10^3/UL 0.7-4.9 [place]# 0.3 x10^3/UL 0.1-0.9 Gran % 69.6 % 42.2-75.2 Lymph % 26.3 % 20.5-51.1 [place]% 4.1 % 1.7-9.3 Comprehensive Metabolic 06/02/2013 Zafar Clements([facility]) Sodium 133 mEq/L Low 134-149 23 Prof Potassium 3.7 mEq/L 3.6-5.5 Chloride 91 mEq/L Low 94-112 24 Carbon Dioxide 26 mEq/L 21-32 Glucose 92 mg/dL 70-105 BUN 16 mg/dL 6-26 Creatinine 1.0 mg/dL 0.6-1.4 BUN/Creat Ratio 16.0 CALC 8.0-36.0 Calcium 9.9 mg/dL 8.6-10.2 Total Protein 7.1 g/dL 6.3-8.1 Albumin 4.3 g/dL 3.8-5.5 Globulin 2.8 g/dL 2.0-4.8 A/G Ratio 1.5 CALC 0.6-2.3 Alk. Phosphatase 135 U/L High 30-110 25 Alt (SGPT) 24 U/L 7-35 Ast (Sgot) 26 U/L 5-34 Total Bilirubin 0.6 mg/dL 0.2-1.3 Lipid Profile 06/02/2013 Zafar Clements([facility]) Cholesterol 161 mg/dL 120- 200 Triglycerides 123 mg/dL 30-200 HDL Cholesterol 42 mg/dL 30-85 LDL (Calculated) 94 CALC 0-129 VLDL Cholesterol 25 mg/dL 0-50 HDL Risk Factor 3.8 CALC 0.0-4.4 Complete Blood Count 06/02/2013 Zafar Clements([facility]) WBC 7.8 x10^3/UL 3.6 -9.6 RBC 3.85 x10^6/UL Low 3.90-5.70 HGB 12.4 g/dL 12.1-17.2 HCT 36 % 36-50 MCV 94.0 fL 82.2-97.4 MCH 32.4 pg 27.6-33.3 MCHC 34.5 g/dL 33.0-35.5 RDW 11.2 % Low 11.6-13.7 PLT 330 x10^3/UL 150-400 MPV 7.5 fL 7.4-10.4 Gran # 5.5 x10^3/UL 1.5-7.2 Lymph# 1.9 x10^3/UL 0.7-4.9 [place]# 0.4 x10^3/UL 0.1-0.9 Gran % 69.2 % 42.2-75.2 Lymph % 24.9 % 20.5-51.1 [place]% 5.9 % 1.7-9.3 Comprehensive Metabolic 02/19/2012 Zafar Clements([facility]) Albumin 4.7 g/dL 3.8-5.5 Prof Alk. Phos. 170 U/L High 30-110 26 Alt (SGPT) 24 U/L 7-35 Ast (Sgot) 35 U/L High 5-34 27 BUN 16 mg/dL 6-26 Calcium 9.9 mg/dL 8.6-10.2 Chloride 97 mEq/L 94-112 Creatinine 0.9 mg/dL 0.6-1.4 Carbon Dioxide 27 mEq/L 21-32 Glucose 90 mg/dL 70-105 Sodium 135 mEq/L 134-149 Total Bilirubin 0.7 mg/dL 0.2-1.3 Total Protein 7.4 g/dL 6.3-8.1 Potassium 4.2 mEq/L 3.6-5.5 Globulin 2.7 g/dL 2.0-4.8 A/G Ratio 1.7 Calc 0.6-2.2 BUN/Creat Ratio 17.4 Calc 8.0-36.0 Lipid Profile 02/19/2012 Stephen Starr([facility]) Cholesterol 212 mg/dL High 120-200 HDL 67 mg/dL 30-85 Triglycerides 105 mg/dL 30-200 HDL Risk Factor 3.2 CALC 0.0-4.4 LDL (Calculated) 125 CALC 0-129 VLDL (Calculated) 21 mg/dL 0-50 Comprehensive Metabolic 02/06/2011 Stephen Strar([facility]) Albumin 4.3 g/dL 3.8-5.5 Prof Alk. Phos. 154 U/L High 30-110 28 Alt (SGPT) 21 U/L 7-35 Ast (Sgot) 29 U/L 5-34 BUN 19 mg/dL 6-26 Calcium 10.0 mg/dL 8.6-10.2 Chloride 101 mEq/L 94-112 Creatinine 1.0 mg/dL 0.6-1.4 Carbon Dioxide 26 mEq/L 21-32 Glucose 87 mg/dL 70-105 Sodium 136 mEq/L 134-149 Total Bilirubin 0.5 mg/dL 0.2-1.3 Total Protein 6.8 g/dL 6.3-8.1 Potassium 3.7 mEq/L 3.6-5.5 Globulin 2.5 g/dL 2.0-4.8 A/G Ratio 1.7 Calc 0.6-2.2 BUN/Creat Ratio 19.4 Calc 8.0-36.0 Lipid Profile 02/06/2011 Stephen Starr([facility]) Cholesterol 196 mg/dL 120- 200 HDL 54 mg/dL 30-85 Triglycerides 210 mg/dL High 30-200 HDL Risk Factor 3.6 CALC 0.0-4.0 LDL (Calculated) 100 CALC 0-129 VLDL (Calculated) 42 mg/dL 0-50 CBC Electronic ([facility]) 02/06/2011 [facility] WBC 5.9 3.6-9.6 (607)- - RBC 4.00 3.90-5.70 Hemoglobin ([facility]/CMC/CTX) 13.1 g/dL 12.1 - 17.2 Hematocrit ([facility]/CMC/CTX) 37.8 % 36.1 - 50.3 Platelets 289 10^3/ul 150-400 Lymph% 30.4 20.5-51.1 Mixed% 4.7 Neutrophils % 64.9 Mean Corpuscular Vol 94 82.2-97.4 Mean Corpuscular Hemoglobin 32.7 27.6-33.3 Mean Corpuscular Hemo Concen 34.7 32.0-36.0 RDW 12.6 11.6-13.7 Mean Platelet Volume 7.4 6.5-11.0 PTH Intact 03/13/2010 [facility] Calcium 10.5 mg/dL High 8.4-10.4 29 W/Calcim (CX) [address] [place] [address] [phone] Intact PTH 69.4 pg/mL 10.0-73.0 Calcium 10.5 mg/dL High 8.4-10.4 Laboratory 03/13/2010 [facility] N-Telopeptide 17.6 6.2-19.0 test finding 28 [facility] Serum nmolBCE/L [place], [place] [id number] [phone] Laboratory 03/13/2010 [facility] Calcium,Ionized, 5.6 mg/dL 4.5-5.6 test finding 28 [facility] Serum [place], [place] [id number] [phone] Alkaline Phos 03/13/2010 [facility] Alkaline 202 IU/L High 25-165 Iso 28 [facility] Phosphatase, [place] [address] [phone] Liver Fraction: 82 % 26-86 Bone Fraction: 18 % 11-68 Intestinal Frac.: 0 % 0-16 Protein Electro 03/13/2010 [facility] Protein, Total, 7.6 g/dL 6.0-8.5 Serum W/Interp [address] [place] [address] [phone] Albumin 4.1 g/dL 3.2-5.6 Arbvv-7-Slsaqztr 0.3 g/dL 0.1-0.4 Pmgxc-9-Rjovuyzn 0.9 g/dL 0.4-1.2 Beta Globulin 1.3 g/dL 0.6-1.3 Gamma Globulin 1.0 g/dL 0.5-1.6 M-Zohaib Not Observed g/dL Not Observed Globulin, Total 3.5 g/dL 2.0-4.5 A/G Ratio 1.2 0.7-2.0 Please note: SEE NOTE 30 P E Interpretation, S SEE NOTE 31 Comprehensive Metabolic 03/07/2010 Zafar Starr([facility]) Albumin 4.4 g/dL 3.8-5.5 Prof Alk. Phos. 168 U/L High 30-110 32 Alt (SGPT) 30 U/L 7-35 Ast (Sgot) 31 U/L 5-34 BUN 18 mg/dL 6-26 Calcium 10.6 mg/dL High 8.6-10.2 33 Chloride 103 mEq/L 94-112 Creatinine 0.9 mg/dL 0.6-1.4 Carbon Dioxide 26 mEq/L 21-32 Glucose 89 mg/dL 70-105 Sodium 143 mEq/L 134-149 Total Bilirubin 0.3 mg/dL 0.2-1.3 Total Protein 7.2 g/dL 6.3-8.1 Potassium 3.7 mEq/L 3.6-5.5 Globulin 2.8 g/dL 2.0-4.8 A/G Ratio 1.6 Calc 0.6-2.2 BUN/Creat Ratio 18.7 Calc 8.0-36.0 Lipid Profile 03/07/2010 Zafar Starr(a) Cholesterol 239 mg/dL High 120-200 HDL 71 mg/dL 30-85 Triglycerides 178 mg/dL 30-200 HDL Risk Factor 3.4 CALC Low 4.2-7.0 LDL (Calculated) 132 CALC High 0-129 VLDL (Calculated) 36 mg/dL 0-50 CBC (a) 03/07/2010 [facility] WBC 6.6 3.6-9.6 (607)- - RBC 4.34 3.90-5.70 Hemoglobin (Fma/CMC/CTX) 13.8 g/dL 12.1 - 17.2 Hematocrit (Fma/CMC/CTX) 41.5 % 36.1 - 50.3 Platelets 261 10^3/ul 150-400 Lymph% 26.7 20.5-51.1 Mixed% 5.4 Neutrophils % 67.9 Mean Corpuscular Vol 96 82.2-97.4 Mean Corpuscular Hemoglobin 31.8 27.6-33.3 Mean Corpuscular Hemo Concen 33.3 32.0-36.0 RDW 12.8 11.6-13.7 Mean Platelet Volume 6.9 6.5-11.0 Lipid Profile 06/15/2008 Stephen Starr(fma) Cholesterol 165 mg/dL 120- 200 34 HDL 35 mg/dL 30-85 Triglycerides 192 mg/dL 30-200 HDL Risk Factor 4.7 CALC 4.2-7.0 LDL (Calculated) 91 CALC 0-129 VLDL (Calculated) 38 mg/dL 0-50 Comprehensive Metabolic 06/15/2008 Stephen Starr(fma) Albumin 3.9 g/dL 3.8-5.5 Prof Alk. Phos. 155 U/L High 30-110 35 Alt (SGPT) 30 U/L 7-35 Ast (Sgot) 30 U/L 5-34 BUN 16 mg/dL 6-26 Calcium 9.5 mg/dL 8.6-10.2 Chloride 103 mEq/L 94-112 Creatinine 1.0 mg/dL 0.6-1.4 Carbon Dioxide 29 mEq/L 21-32 Glucose 84 mg/dL 70-105 Sodium 143 mEq/L 134-149 Total Bilirubin 0.5 mg/dL 0.2-1.3 Total Protein 6.6 g/dL 6.3-8.1 Potassium 4.0 mEq/L 3.6-5.5 Globulin 2.7 g/dL 2.0-4.8 A/G Ratio 1.4 Calc 0.6-2.2 BUN/Creat Ratio 16.1 Calc 8.0-36.0 Alkaline Phos 12/23/2007 [facility] Alkaline 175 IU/L High 25-165 Iso 28 [facility], [place] [address] [phone] Liver Fraction: 79 % 26-86 Bone Fraction: 18 % 11-68 Intestinal Frac.: 3 % 0-16 Comprehensive Metabolic 12/23/2007 Stephen Starr(fma) Albumin 3.9 g/dL 3.8-5.5 Prof Alk. Phos. 141 U/L High 30-110 36 Alt (SGPT) 26 U/L 7-35 Ast (Sgot) 29 U/L 5-34 BUN 14 mg/dL 6-26 Calcium 10.1 mg/dL 8.6-10.2 Chloride 98 mEq/L 94-112 Creatinine 1.0 mg/dL 0.6-1.4 Carbon Dioxide 29 mEq/L 21-32 Glucose 98 mg/dL 70-105 Sodium 138 mEq/L 134-149 Total Bilirubin 0.7 mg/dL 0.2-1.3 Total Protein 7.3 g/dL 6.3-8.1 Potassium 3.8 mEq/L 3.6-5.5 Globulin 3.4 g/dL 2.0-4.8 A/G Ratio 1.2 Calc 0.6-2.2 BUN/Creat Ratio 13.9 Calc 8.0-36.0 Lipid Profile 12/23/2007 Zafar Clements([facility]) Cholesterol 216 mg/dL High 120-200 HDL 53 mg/dL 30-85 Triglycerides 148 mg/dL 30-200 HDL Risk Factor 4.0 CALC Low 4.2-7.0 LDL (Calculated) 133 CALC High 0-129 VLDL (Calculated) 30 mg/dL 0-50 Complete Blood Count 12/23/2007 Zafar Clements([facility]) WBC 7.4 x10^3/u 3.6- 9.6 Gran# 5.1 x10^3/u 1.5-7.2 Gran% 68.6 % 42.2-75.2 HCT 41 % 36-50 HGB 14.1 g/dL 12.1-17.2 Lymph# 2.1 x10^3/u 0.7-4.9 Lymph% 28.0 % 20.5-51.1 MCH 31.3 pg 27.6-33.3 MCV 90.1 fL 82.2-97.4 MCHC 34.7 g/dL 33.0-35.5 Mo# 0.3 x10^3/u 0.1-0.9 Mo% 3.4 % 1.7-9.3 MPV 8.0 fL 7.4-10.4 PLT 305 x10^3/u 150-400 RBC 4.52 x10^6/u 3.90-5.70 RDW 12.8 % 11.6-13.7 Complete Blood Count 11/06/2006 Stephen Starr(fma) WBC 7.2 x10\\S\\3/uL 3.6-9.6 Gran# 5.0 x10\\S\\3/uL 1.5-7.2 Gran% 69.9 % 42.2-75.2 HCT 44 % 36-50 HGB 14.8 g/dL 12.1-17.2 Lymph# 1.9 x10\\S\\3/uL 0.7-4.9 Lymph% 27.0 % 20.5-51.1 MCH 32.3 pg 27.6-33.3 MCV 95.8 fL 82.2-97.4 MCHC 33.7 g/dL 33.0-35.5 Mo# 0.2 x10\\S\\3/uL 0.1-0.9 Mo% 3.1 % 1.7-9.3 MPV 7.9 fL 7.4-10.4 PLT 337 x10\\S\\3/uL 150-400 RBC 4.59 x10\\S\\6/uL 3.90-5.70 RDW 12.4 % 11.6-13.7 Laboratory test 11/06/2006 [facility] Sed Rate 14mm finding (607)- - (Fma/CMC/[facility]) Wound Culture 11/06/2006 [facility] Wound Culture No growth. 28 [place] [id number] [phone] Gram Stain Additional NO WBC, NO ORGAN <SEE NOTE> 37 Comprehensive Metabolic 11/06/2006 Zafar Starr(fma) Albumin 4.3 g/dL 3.8-5.5 Prof Alk. Phos. 148 U/L High 30-110 38 Alt (SGPT) 21 U/L 7-35 Ast (Sgot) 25 U/L 5-34 BUN 13 mg/dL 6-26 Calcium 9.4 mg/dL 8.6-10.2 Chloride 106 mEq/L 94-112 Creatinine 1.1 mg/dL 0.6-1.4 Carbon Dioxide 28 mEq/L 21-32 Glucose 100 mg/dL 70-105 Sodium 140 mEq/L 134-149 Total Bilirubin 0.6 mg/dL 0.2-1.3 Total Protein 7.6 g/dL 6.3-8.1 Potassium 3.8 mEq/L 3.6-5.5 Globulin 3.3 g/dL 2.0-4.8 A/G Ratio 1.3 Calc 0.6-2.2 BUN/Creat Ratio 12.2 Calc 8.0-36.0 Lipid Profile 11/06/2006 Stephen Starr(a) Cholesterol 237 mg/dL High 120-200 HDL 57 mg/dL 30-85 Triglycerides 148 mg/dL 30-200 HDL Risk Factor 4.2 CALC 4.2-7.0 LDL (Calculated) 150 CALC High 0-129 VLDL (Calculated) 30 mg/dL 0-50 Liver Function ([facility]) 11/14/2005 [facility] Total Protein 7.1 g/dL 6.3-8.1 (607)- - Albumin ([facility]) 4.5 3.8-5.5 A/G Ratio ([facility]) 1.7 0.6-2.2 Globulin 2.6 2.0-4.8 Alkaline Phosphatase (F/C/CTX) 143 U/L High 30-110 Alt (SGPT) ([facility]) 23 10-40 Ast (Sgot) ([facility]) 29 U/mL 5-34 Bilirubin, Total 0.6 mg/dL 0.2-1.3 Bilirubin, Direct 0.2 mg/dL 0-0.6 Bilirubin, Indirect 0.39 ml/dl 0.10-1.0 Lipid Profile 11/14/2005 [facility] Cholesterol 314 mg/dL High 120- 200 (a) Female (607)- - (a/CMC/[facility]) Triglyceride 167 mg/dL 30-200 HDL-Chol 62 mg/dL 30-85 LDL, Calculated (a/[facility]) 219 CALC High 0-129 VLDL 33 0-50 HDL Risk Factor (a) 5.1 CALC 4.2-7.0 Liver Function ([facility]) 02/27/2005 [facility] Total Protein 7.3 g/dL 6.3-8.1 (607)- - Albumin ([facility]) 4.4 3.8-5.5 A/G Ratio ([facility]) 1.5 0.6-2.2 Globulin 2.9 2.0-4.8 Alkaline Phosphatase (F/C/CTX) 148 RESULT NENO'D U/L High 30-110 Alt (SGPT) ([facility]) 25 10-40 Ast (Sgot) (a/[facility]) 30 U/mL 5-34 Bilirubin, Total 0.6 mg/dL 0.2-1.3 Bilirubin, Direct 0.1 mg/dL 0-0.6 Bilirubin, Indirect 0.50 ml/dl 0.10-1.0 Lipid Profile ([facility]) 02/27/2005 [facility] Cholesterol 207 mg/dL High 120-200 Female (607)- - Triglyceride 131 mg/dL 30-200 HDL-Chol 44 mg/dL 30-85 LDL, Calculated ([facility]) 137 CALC High 0-129 LDL Direct (/[facility]) - mg/dL 0-130 VLDL 26 0-50 HDL Risk Factor ([facility]) 4.7 CALC 4.2-7.0 CBC Electronic ([facility]) 12/20/2004 [facility] WBC 9.3 3.6-9.6 (607)- - Lymphocytes 18.9 % Low 20.5 - 51.1 Monocytes 4.2 % 1.7-9.3 Granulocytes 76.9 % High 42.2 - 75.2 Lymphocytes 1.8 10^3/uL 0.7 - 4.9 Monocytes 0.4 10^3/uL 0.1 - 0.9 Granulocytes 7.2 10^3/uL 1.5 - 7.2 RBC 4.63 3.90-5.70 Hemoglobin (a/CMC/CTX) 15.1 g/dL 12.1 - 17.2 Hematocrit (a/[facility]/CTX) 44.2 % 36.1 - 50.3 Mean Corpuscular Vol 95.4 82.2-97.4 Mean Corpuscular Hemaglobin 32.6 27.6-33.3 Mean Corpuscular Hemo Concen 34.2 33.0-36.0 RDW 12.5 11.6-13.7 Platelets 334. 10^3/ul 150-400 Mean Platelet Volume 8.1 7.4-10.4 Comp Metabolic 12/20/2004 [facility] Glucose, Serum 93 mg/dL 70- 105 ([facility]) Female (607)- - (Fma/CMC/CTX) BUN (Fma/CMC/[facility]) 14 mg/dL 6-26 Creatinine, Serum 0.9 mg/dL 0.6-1.4 BUN/Creatinin Ratio 14.8 8.0-36 Sodium 142 134-149 Potassium 4.0 3.6-5.5 Chloride 97 mEq/L 94-112 Co2 26 21-32 Calcium (Fma/CMC/[facility]) 9.5 mg/dL 8.6-10.2 Total Protein 7.8 g/dL 6.3-8.1 Albumin (Fma/CMC/[facility]) 4.4 3.8-5.5 Globulin 3.5 2.0-4.8 A/G Ratio ([facility]) 1.3 0.6-2.2 Alkaline Phosphatase (F/C/CTX) 137 RESULT NENO'D U/L High 22-95 Alt (SGPT) (Fma/CMC/[facility]) 24 10-40 Ast (Sgot) (Fma/CMC/[facility]) 33 U/mL 5-34 Bilirubin, Total 0.5 mg/dL 0.2-1.3 Lipid Profile 12/20/2004 [facility] Cholesterol 293 mg/dL High 120- 200 ([facility]) Female (607)- - (Fma/CMC/[facility]) Triglyceride 207 mg/dL High 30-200 HDL-Chol 58 mg/dL 30-85 LDL, Calculated (a/CMC) 194 CALC High 0-129 LDL Direct (FM/CMC/[facility]) - mg/dL 0-130 VLDL 41 0-50 HDL Risk Factor ([facility]) 5.1 CALC 4.2-7.0 Laboratory 12/20/2004 [facility] CRP (High 12.42 High 0.00-3.00 39 test finding [address] Sensitivity) mg/[place] [address] [phone] Basic 08/17/2003 [facility] Glucose, Serum 81 mg/dL 70-118 Metabolic (607)- - (Fma/CMC/CTX) ([facility]) BUN (Fma/CMC/[facility]) 12 mg/dL 6-26 Creatinine (Fma/CMC/CTX) 0.7 mg/dL 0.6-1.4 BUN/Creatinin Ratio 16.6 8.0-36 Sodium 143 134-149 Potassium 4.5 3.6-5.5 Chloride 101 mEq/L 94-112 Co2 27 21-32 Calcium (Fma/CMC/[facility]) 9.4 mg/dL 8.6-10.0 Comp Metabolic 06/15/2003 [facility] Glucose, Serum 92 mg/dL 70- 118 (a) (607)- - (Fma/CMC/CTX) BUN (Fma/CMC/[facility]) 16 mg/dL 6-26 Creatinine (Fma/CMC/CTX) 0.7 mg/dL 0.6-1.4 BUN/Creatinin Ratio 21.9 8.0-36 Sodium 143 134-149 Potassium 3.9 3.6-5.5 Chloride 100 mEq/L 94-112 Co2 26 21-32 Calcium (Fma/[facility]) 9.1 mg/dL 8.6-10.0 Total Protein 6.4 g/dL 6.3-8.1 Albumin (Fma/CMC/[facility]) 4.1 3.8-5.5 Globulin 2.3 2.0-4.8 A/G Ratio (Fma/CMC) 1.8 0.6-2.2 Alkaline Phosphatase (F/C/CTX) 134 U/L High 30-110 40 Alt (SGPT) (Fma/[facility]) 23 10-40 Ast (Sgot) (Fma/CMC/[facility]) 27 U/mL 5-34 Bilirubin, Total 0.5 mg/dL 0.2-1.3 Lipid Profile 06/15/2003 [facility] Cholesterol 231 mg/dL High 120- 200 (a) (607)- - (Fma/CMC/[facility]) Triglyceride 160 mg/dL 30-200 HDL-Chol 48 30-85 LDL, Calculated (a/CMC) 152 CALC High 0-129 VLDL 32 0-50 HDL Risk Factor ([facility]) 4.9 CALC 4.2-7.0 1 consistent w/ previous results 2 [id number] 3 Because ethnic data is not always readily available, this report includes an eGFR for both -Americans and non- Americans. The National Kidney Disease Education Program (NKDEP) does not endorse the use of the MDRD equation for patients that are not between the ages of 18 and 70, are , have extremes of body size, muscle mass, or nutritional status, or are non- or non-. According to the National Kidney Foundation, irrespective of diagnosis, the stage of the disease is based on the level of kidney function: Stage Description GFR(mL/min/1.73 m(2)) 1 Kidney damage with normal or decreased GFR 90 2 Kidney damage with mild decrease in GFR 60-89 3 Moderate decrease in GFR 30-59 4 Severe decrease in GFR 15-29 5 Kidney failure <15 (or dialysis) 4 1 sst 5 An apparent normal immunofixation pattern. 6 consistent w/ previous results 7 consistent w/ previous results 8 consistent w/ previous results 9 Protein electrophoresis scan will follow via computer, mail, or leno sewer delivery. 10 The serum pattern contains a small band of restricted mobility. This band may represent a benign spike as seen in older people or could be a paraprotein as seen in Multiple Myeloma, Waldenstrom's Macro- globulinemia or Lymphoma. Depending on clinical circumstances, further diagnostic studies may include serum immunofixation or urine electrophoresis. 11 RESULTS VERIFIED BY REPEAT ANALYSIS 12 Thyroglobulin Antibody measured by [facility] [employer] 13 [id number] 14 Because ethnic data is not always readily available, this report includes an eGFR for both -Americans and non- Americans. The National Kidney Disease Education Program (NKDEP) does not endorse the use of the MDRD equation for patients that are not between the ages of 18 and 70, are , have extremes of body size, muscle mass, or nutritional status, or are non- or non-. According to the National Kidney Foundation, irrespective of diagnosis, the stage of the disease is based on the level of kidney function: Stage Description GFR(mL/min/1.73 m(2)) 1 Kidney damage with normal or decreased GFR 90 2 Kidney damage with mild decrease in GFR 60-89 3 Moderate decrease in GFR 30-59 4 Severe decrease in GFR 15-29 5 Kidney failure <15 (or dialysis) 15 Serologic response to B. burgdorferi infection is not detected, but cannot rule out early infection during which low or undetectable antibody levels to B. burgdorferi may be present. If clinically indicated, a new serum specimen should be submitted in 7-14 days. Test Performed by: [facility] [address] [place] [address] 16 [id number] 17 Because ethnic data is not always readily available, this report includes an eGFR for both -Americans and non- Americans. The National Kidney Disease Education Program (NKDEP) does not endorse the use of the MDRD equation for patients that are not between the ages of 18 and 70, are , have extremes of body size, muscle mass, or nutritional status, or are non- or non-. According to the National Kidney Foundation, irrespective of diagnosis, the stage of the disease is based on the level of kidney function: Stage Description GFR(mL/min/1.73 m(2)) 1 Kidney damage with normal or decreased GFR 90 2 Kidney damage with mild decrease in GFR 60-89 3 Moderate decrease in GFR 30-59 4 Severe decrease in GFR 15-29 5 Kidney failure <15 (or dialysis) 18 Result TnIDx:0.06 Called to [id number] at: 18:53:52 by:[email or web address] Read back by: [id number] 19 [facility] Severe Sepsis and Septic Shock Management Bundle Measure requires all lactic acids initially measuring >2.0 mmol/L be repeated. 20 Because ethnic data is not always readily available, this report includes an eGFR for both -Americans and non- Americans. The National Kidney Disease Education Program (NKDEP) does not endorse the use of the MDRD equation for patients that are not between the ages of 18 and 70, are , have extremes of body size, muscle mass, or nutritional status, or are non- or non-. According to the National Kidney Foundation, irrespective of diagnosis, the stage of the disease is based on the level of kidney function: Stage Description GFR(mL/min/1.73 m(2)) 1 Kidney damage with normal or decreased GFR 90 2 Kidney damage with mild decrease in GFR 60-89 3 Moderate decrease in GFR 30-59 4 Severe decrease in GFR 15-29 5 Kidney failure <15 (or dialysis) 21 consistent w/ previous results 22 consistent w/ previous results 23 RESULTS VERIFIED BY REPEAT ANALYSIS 24 RESULTS VERIFIED BY REPEAT ANALYSIS 25 RESULTS VERIFIED BY REPEAT ANALYSIS 26 RESULT NENO'D 27 RESULT NENO'D 28 RESULT NENO'D 29 3 SST; 1 POUR OFF; +++++++++SPLIT SPECIMEN+++++++++ +++++++ FROZEN+++++++++ ++; 1 POUR OFF 30 Protein electrophoresis scan will follow via computer, mail, or leno sewer delivery. 31 The SPE pattern appears essentially unremarkable. Evidence of monoclonal protein is not apparent. 32 result neno'd 33 result neno'd 34 FASTING 35 RESULT NENO'D 36 RESULT NENO'D 37 NO WBC, NO ORGANISMS SEEN 38 RESULT VERIFIED BY REPEAT ANALYSIS 39 . hs-CRP Result (mg/L) Risk Level <1.0 Low 1.0-3.0 Average >3.0 High Patients with persistently unexplained, marked elevation of hs-CRP (greater than 10 mg/L) after repeated testing should be evaluated for non-cardiovascular etiologies. . 40 RESULT VERIFIED BY REPEAT ANALYSIS Procedures Date Code Description Status 09/02/2017 [id number] Mammogram Completed 02/16/2017 [id number] Electrocardiogram Complete Completed 11/21/2016 [id number] Electrocardiogram Complete Completed 11/14/2016 [id number] Electrocardiogram Complete Completed 2016 [id number] Mammogram Completed 08/23/2015 [id number] Mammogram Completed 08/18/2014 [id number] Mammogram Completed 08/17/2013 [id number] Mammogram Completed 08/14/2012 [id number] Mammogram Completed 08/01/2011 [id number] Mammogram Completed 07/27/2010 [id number] Mammogram Completed 06/10/2009 [id number] Mammogram Completed 06/10/2008 [id number] Mammogram Completed Encounters Type Date Location Provider Dx Diagnosis Office Visit 06/17/2018 [facility] Office Maicol Chicas Essential (primary) 11:20a Jermaine Lorenzana hypertension H34.8110 Central retinal vein occls, right eye, with macular edema I48.91 Unspecified atrial fibrillation E78.00 Pure hypercholesterolemia, unspecified Office Visit 02/18/2018 10:10a [facility] Office Maicol Chicas Essential ( primary) Breiman, M.D. hypertension H34.8110 Central retinal vein occls, right eye, with macular edema I48.91 Unspecified atrial fibrillation Office Visit 11/19/2017 1:00p [facility] Maicol Chicas Essential ( primary) Jermaine Lorenzana hypertension H34.8110 Central retinal vein occls, right eye, with macular edema I48.91 Unspecified atrial fibrillation E78.00 Pure hypercholesterolemia, unspecified Office Visit 10/22/2017 8:00a [facility] Maicol Chicas Essential ( primary) Jermaine Lorenzana hypertension I48.91 Unspecified atrial fibrillation H34.8110 Central retinal vein occls, right eye, with macular edema Office Visit 02/16/2017 10:45a [facility] Maicol New Unspecified atrial Jermaine Lorenzana fibrillation I10 Essential (primary) hypertension R63.4 Abnormal weight loss R06.02 Shortness of breath R53.83 Other fatigue D64.9 Anemia, unspecified Office Visit 01/09/2017 6:00p Main Office Maicol eNw Unspecified atrial Jermaine Lorenzana fibrillation I10 Essential (primary) hypertension R63.4 Abnormal weight loss R63.0 Anorexia Office Visit 11/21/2016 1:00p Main Office Maicol New Unspecified atrial Jermaine Lorenzana fibrillation I10 Essential (primary) hypertension Office Visit 11/14/2016 2:00p [facility] Office Maicol New Unspecified atrial Jermaine Lorenzana fibrillation I10 Essential (primary) hypertension E78.00 Pure hypercholesterolemia, unspecified Office Visit 06/21/2015 11:20a [facility] Maicol Chicas Essential Jermaine Lorenzana (primary) hypertension Office Visit 06/01/2014 4:10p [facility] Maicol Lees 401.1 Dom Lorenzana M.D. Benign 272.0 Hypercholesterolemia Pure Office Visit 06/02/2013 11:20a [facility] Maicol Lees 401.1 Dom Lorenzana M.D. Benign 272.0 Hypercholesterolemia Pure V05.8 Single Disease Spec Other Vaccination & Inoculation Office Visit 02/19/2012 10:10a [facility] Maicol Lees 401.1 Dom Lorenzana M.D. Benign Office Visit 02/06/2011 11:10a [facility] Maicol Lees V06.5 Tetanus Diphtheria Jermaine Lorenzana (DT) 401.1 Hypertension Benign Office Visit 08/01/2010 3:00p [facility] Maicol Lees 401.1 Hypertension Jermaine Lorenzana Benign Office Visit 03/07/2010 9:40a [facility] Maicol Lees 401.1 Dom Lorenzana M.D. Benign 272.0 Hypercholesterolemia Pure Office Visit 06/15/2008 11:00a [facility] Maicol Lees 401.1 Hypertension Jermaine Lorenzana Benign 272.0 Hypercholesterolemia Pure Office Visit 12/23/2007 8:00a [facility] Maicol Lees 401.1 Hypertension Jermaine Lorenzana Benign 272.0 Hypercholesterolemia Pure Office Visit 05/09/2007 9:40a [facility] Maicol Lees 916.9 Injury Superficial Jermaine Lorenzana Hip Thigh Leg Ankle Other Unspec Infected 459.81 Venous Insufficiency (Peripheral) Unspec Office Visit 11/12/2006 11:00a [facility] Maicol Lees 916.9 Injury Keila Lorenzana M.D. Hip Thigh Leg Ankle Other Unspec Infected Office Visit 11/06/2006 10:00a Main Office Maicol Lees 916.9 Injury Superficial Jermaine Lorenzana Hip Thigh Leg Ankle Other Unspec Infected 401.1 Hypertension Benign 272.0 Hypercholesterolemia Pure Office Visit 02/27/2005 [facility] Maicol Lees 272.0 Hypercholesterolemia Pure 9:00a Office Jermaine Lorenzana 401.9 Hypertension Unspec V58.69 Medications Shelter (Current) Use Of Other Medication Office Visit 01/02/2005 10:10a [facility] Maicol Lees 401.9 Hypertension Jermaine Lorenzana Unspec 272.0 Hypercholesterolemia Pure Office Visit 12/19/2004 11:20a [facility] Maicol Lees 401.9 Dom Lorenzana M.D. Unspec Office Visit 08/17/2003 9:10a [facility] Maicol Lees 401.9 Hypertension Jermaine Lorenzana Unspec Office Visit 06/15/2003 9:15a [facility] Maicol Lees 401.9 Hypertension Jermaine Lorenzana Unspec Office Visit 06/15/2003 9:20a [facility] Maicol Lees 401.9 Hypertension Jermaine Lorenzana Unspec Office Visit 05/18/2003 1:20p [facility] Maicol Lees 401.9 Hypertension Jermaine Lorenzana Unspec Plan of Treatment Future Appointment(s):09/30/2018 11:20 am - Maicol Lorenzana M.D. at [facility] Awknfk0007/14/2018 - Maicol Valle, MDR05 CoughNew Medication: Tussionex Pennkinetic Extended Release 10-8 mg/5ML - 5ml twice a day as needed coughAllComments:Medication Management Patient Understands medications she's taking? Yes No Are there Barriers to Adherence? Yes No Has the patient been asked about herbal supplements and therapies, and OTC meds? Yes No
--- NOTE | 2018-08-01 11:37 | ED ---
GI/ HPI - HPI Summary HPI Summary: A 72 y/o female presents to [facility] with a chief complaint of watery diarrhea for the past 4 days. She was in [place] and got back home yesterday. She also complains of A-fib, and she reports taking Eliquis. She claims that she was not able to tell that she was in A-fib even though she usually can tell. She also reports taking Torsemide. She c/o some weakness, lightheadedness, dehydration, intermittent SOB for a few days while in [place], and cough. She denies a Hx of bloodclots. Pt denies any fever, chills, erythema of eyes, sore throat, CP, abdominal pain, vomiting, dysuria, hematuria, myalgia, edema, or rash. She was on abx on 07/16/18 because she was diagnosed with PNA. She saw Dr. Schrader 18 months ago. - History of Current Complaint Chief Complaint: EDNauseaVomitDiarrh Stated Complaint: AFIB PER PT Hx Obtained From: Patient, Family/Pipe Finishing Supervisor Onset/Duration: Started Days Ago, Still Present Timing: Constant, Lasting Days Severity: Mild Current Severity: Mild Pain Intensity: 0 Location of Pain: None Pain Characteristics: Other: - none Associated Signs and Symptoms: Positive: Nausea, Lightheadedness, Cough. Negative: Vomiting, Fever, Dysuria, Chills, Abdominal Pain, Chest Pain - Additional Pertinent History Primary Care Physician: [id number] - Allergy/Home Medications Allergies/Adverse Reactions: Allergies Allergy/AdvReac Type Severity Reaction Status Date / Time No Known Allergies Allergy Verified 08/01/18 11:09 Home Medications: Home Medications Atorvastatin* [Lipitor*] 10 mg PO DAILY 08/01/18 [History Confirmed 08/01/18] Atorvastatin* [Lipitor*] 20 mg PO DAILY 08/01/18 [History Confirmed 08/01/18] Calcium Carbonate [Calcium] 600 mg PO DAILY 08/01/18 [History Confirmed 08/01/18 ] Cholecalciferol TAB* [Vitamin D TAB*] 1,000 unit PO DAILY 08/01/18 [History Confirmed 08/01/18] Dofetilide CAP* [Tikosyn CAP*] 125 mcg PO BID 08/01/18 [History Confirmed ] Furosemide TAB* [Lasix TAB*] 20 mg PO DAILY 08/01/18 [History Confirmed 08/01/18 ] Losartan TAB* [Cozaar TAB*] 25 mg PO DAILY 08/01/18 [History Confirmed 08/01/18] Metoprolol Tartrate TAB* [Lopressor TAB*] 50 mg PO BID 08/01/18 [History Confirmed 08/01/18] [place]-3 Fatty Acids (Nf) [Fish Oil (NF)] 1,000 mg PO DAILY 08/01/18 [History Confirmed 08/01/18] Vitamin B Complex CAP* [B Complex CAP*] 1 cap PO DAILY 08/01/18 [History Confirmed 08/01/18] PMH/Surg Hx/FS Hx/Imm Hx Endocrine/Hematology History: Denies: Hx Diabetes Cardiovascular History: Reports: Hx Hypertension History: Denies: Hx Renal Disease Sensory History: Reports: Hx Contacts or Glasses - reading and distance Denies: Hx Hearing Aid Opthamlomology History: Reports: Hx Contacts or Glasses - reading and distance Neurological History: Denies: Hx CVA - Cancer History Hx Chemotherapy: No Hx Radiation Therapy: No - Surgical History Surgery Procedure, Year, and Place: hysterectomy - 1986 - Immunization History Date of Tetanus Vaccine: UTD Date of Influenza Vaccine: 2015 Infectious Disease History: No Infectious Disease History: Denies: Traveled Outside the [place] in Last 30 Days - Family History Known Family History: Positive: Hypertension, Other - CVA -mother Negative: Blood Disorder - Social History Alcohol Use: Weekly Alcohol Amount: 2 drinks/week Substance Use Type: Reports: None Smoking Status (MU): Never Smoked Tobacco Amount Used/How Often: 3 years X 1 ppd Review of Systems Negative: Fever, Chills Negative: Erythema Negative: Sore Throat Positive: Palpitations. Negative: Chest Pain Positive: Shortness Of Breath, Cough Positive: Diarrhea, Nausea. Negative: Abdominal Pain, Vomiting Negative: dysuria, hematuria Negative: Myalgia, Edema Negative: Rash Neurological: Other - positive: lightheadedness Positive: Weakness All Other Systems Reviewed And Are Negative: Yes Physical Exam - Summary Physical Exam Summary: Constitutional: Well-developed, Well-nourished, Alert. (-) Distressed Skin: Warm, Dry HENT: Normocephalic; Atraumatic Eyes: Conjunctiva normal Neck: Musculoskeletal ROM normal neck. (-) JVD, (-) Stridor, (-) Tracheal deviation Cardio: Rapid irregularly irregular heart rate, Heart sounds normal; Intact distal pulses; The pedal pulses are 2+ and symmetric. Radial pulses are 2+ and symmetric. (-) Murmur Pulmonary/Chest wall: Effort normal. (-) Respiratory distress, (-) Wheezes, (-) Rales Abd: Soft, (-) tenderness, (-) Distension, (-) Guarding, (-) Rebound Musculoskeletal: (-) Edema Lymph: (-) Cervical adenopathy Neuro: Alert, Oriented x3 Psych: Mood and affect Normal Triage Information Reviewed: Yes Vital Signs On Initial Exam: Initial Vitals Temp Pulse Resp BP Pulse Ox 98.7 F 108 18 89/57 97 08/01/18 11:05 08/01/18 11:05 08/01/18 11:05 08/01/18 11:05 08/01/18 11:05 Vital Signs Reviewed: Yes Diagnostics - Vital Signs Vital Signs Temp Pulse Resp BP Pulse Ox 08/01/18 11:05 98.7 F 108 18 89/57 97 - Laboratory Result Diagrams: 08/04/18 07:55 08/07/18 06:36 Lab Statement: Any lab studies that have been ordered have been reviewed, and results considered in the medical decision making process. - Radiology CXR Radiology Interpretation Completed By: Radiologist Summary of Radiographic Findings: New left upper lobe pneumonia. Improved right upper lobe pneumonia. ED physician has reviewed this imaging report. - CT chest/thorax CTA CT Interpretation Completed By: Radiologist Summary of CT Findings: No definite evidence of pulmonary emboli is noted. There is airspace disease. in the left upper lobe and right upper lobe suspicious for pneumonia with underlying. emphysema. ED physician has reviewed this imaging report. - EKG 11:08 Cardiac Rate: Other Rate - Atrial fibrillation at 143 bpm EKG Rhythm: Atrial Fibrillation Summary of EKG Findings: Atrial fibrillation at 143 bpm. RVR, no STEMI. Re-Evaluation - Re-Evaluation First Eval Re-Evaluation Time: 15:35 Change: Unchanged Comment: Pt on 2L nasal cannula GIGU Course/Dx - Course Course Of Treatment: A 72 y/o female presents to [facility] with a chief complaint of watery diarrhea for the past 4 days. The physical exam revealed a rapid irregularly irregular heart rate. EKG showed Atrial fibrillation at 143 bpm. RVR, no STEMI. Bloodwork and chemistries obtained. Troponin of 0.11 at 11:25. Chest/thorax CTA impression: No definite evidence of pulmonary emboli is noted. There is airspace disease. in the left upper lobe and right upper lobe suspicious for pneumonia with underlying. emphysema. CXR impression: New left upper lobe pneumonia. Improved right upper lobe pneumonia. In the ED course the patient was given Azithromycin IV, Cipro IV, Diltiazem IV, Iodixanol IV, Zofran IV and Sodium Chloride IV. Case discussed with Dr. Winn, hospitalist, who accepted the patient for admission. The patient is agreeable with this plan. - Diagnoses Provider Diagnoses: Pneumonia, Atrial flutter with rapid ventricular response, Clostridium difficile colitis, Hypoxemia - Physician Notifications Discussed Care Of Patient With: Delmar Winn Time Discussed With Above Provider: 16:50 Instructed by Provider To: Admit As Inpatient - Critical Care Time Critical Care Time: 30-74 min Discharge - Sign-Out/Discharge Documenting (check all that apply): Patient Departure - admit Patient Received Moderate/Deep Sedation with Procedure: No - Discharge Plan Condition: Fair Disposition: ADMITTED TO [facility] - Billing Disposition and Condition Condition: FAIR Disposition: Admitted to [facility] - Attestation Statements Document Initiated by Kellenibe: Yes Documenting Scribe: Ramon Campos Provider For Whom Beto is Documenting (Include Credential): Florian Betancur MD Scribe Attestation: Ramon Grayson, scribed for Florian Betancur MD on 08/07/18 at 1252. Scribe Documentation Reviewed: Yes Provider Attestation: The documentation as recorded by the Ramon moore accurately reflects the service I personally performed and the decisions made by , Florian Betancur MD Status of Scribe Document: Viewed
[2018-08-01] MEDS ORDERED: NS 0.9% 1000 ML** 1,000 ML IV ONE ×2 (11:39→12:51)
[2018-08-01 11:45] LABS: ABS Lymphocytes 0.7 10^3/ul (1.0-4.8); ABS Monocytes 1.1 10^3/ul (0-0.8); ABS Neutrophils 10.4 10^3/ul (1.5-7.7); Hematocrit 33 % (35-47); Hemoglobin 10.8 g/dL (12.0-16.0); Lymphocyte % 5.7 %; Mean Corpuscular HGB Conc 33 g/dL (31-36); Mean Corpuscular Hemoglobin 32 pg (27-31); Mean Corpuscular Volume 95 fL (80-97); Platelet Count 280 10^3/uL (150-450); Red Blood Count 3.44 10^6 /uL (3.70-4.87); Red Cell Distribution Width 15 % (10.5-15); White Blood Count 12.3 10^3/uL (3.5-10.8)
[2018-08-01 12:04] LABS: INR 1.79 (0.82-1.09)
[2018-08-01 12:08] LABS: ALT 20 U/L (7-52); AST 22 U/L (13-39); Albumin 3.2 g/dL (3.2-5.2); Albumin/Globulin Ratio 1.1 (1-3); Alkaline Phosphatase 88 U/L (34-104); Anion Gap 10 mmol/L (2-11); BUN/Creatinine Ratio 10.6 (8-20); Blood Urea Nitrogen 13 mg/dL (6-24); CO2 Carbon Dioxide 30 mmol/L (22-32); Calcium 8.6 mg/dL (8.6-10.3); Chloride 90 mmol/L (101-111); EGFR African American 51.6 (>60); EGFR Non-African American 42.7 (>60); Globulin 2.8 g/dL (2-4); Glucose 150 mg/dL (70-100); Potassium 3.5 mmol/L (3.5-5.0); Sodium 130 mmol/L (135-145)
[2018-08-01 12:12] LABS: Troponin I 0.11 ng/mL (<0.04)
[2018-08-01 12:29] LABS: TSH (Thyroid Stimulating Horm) 3.9 mcIU/mL (0.34-5.60)
[2018-08-01 12:31] LABS: Free T4 1.49 ng/dL (0.61-1.12)
[2018-08-01] MEDS ORDERED: Ondansetron INJ* 2 MG/ML VIAL IV ONE (12:32)
[2018-08-01] MEDS ORDERED: Iodixanol* (CONTRAST) 320 MG/ML 100 ML SDV IV ONE (12:47)
[2018-08-01] MEDS ORDERED: cefTRIAXone(*) 1 GM in NS 0.9% 50 ML* 50 ML IVPB ONE (15:35)
[2018-08-01] MEDS ORDERED: Azithromycin 500 mg/250 ml NS 500 MG/250 ML BAG IVPB ONE (15:35)
[2018-08-01] MEDS ORDERED: Diltiazem IV push/loading dose 5 MG/ML 5 ML vial (25 mg) IV SLOW PU ONE (15:42)
[2018-08-01] MEDS ORDERED: Ciprofloxacin 400MG IVPREMIX(* 400 MG/200 ML BAG IVPB ONE (16:10)
[2018-08-01] MEDS ORDERED: NS 0.9% 1000 ML** 1,000 ML IV SCH (17:00)
[2018-08-01] MEDS ORDERED: Acetaminophen TAB* 325 MG PO PRN (17:00)
[2018-08-01 17:16] LABS: Magnesium 1.2 mg/dL (1.9-2.7)
[2018-08-01] MEDS ORDERED: Magnesium Sulfate IV* 3 GM in NS 0.9% 100 ML* 100 ML IVPB ONE (17:30)
[2018-08-01] MEDS ORDERED: Piperacillin/Tazobac ADVAN(*) 3.375 GM in NS 0.9% 100 ML* 100 ML IVPB ONE (17:44)
[2018-08-01] MEDS ORDERED: Zosyn per Pharmacy* NOTE FOLLOW UP SCH (18:00)
[2018-08-01 18:11] LABS: Troponin I 0.06 ng/mL (<0.04)
[2018-08-01] MEDS ORDERED: NS 0.9% 100 ML* 100 ML ONE (19:40)
[2018-08-01] MEDS: NS 0.9% 1000 ML** 1,000 ML IV SCH ×2 (19:54→23:51)
[2018-08-01] MEDS: Metoprolol Tartrate TAB* 50 mg PO SCH (20:03)
[2018-08-01] MEDS: Apixaban* 5 MG TAB PO SCH (20:03)
[2018-08-01] MEDS: KCL 20 MEQ/100 ML IVPREMIX* 20 MEQ/100 ML BAG IV SCH ×2 (20:41→23:00)
[2018-08-01] MEDS ORDERED: Dofetilide CAP* 125 MCG PO SCH (21:00)
[2018-08-01 21:19] LABS: Troponin I 0.06 ng/mL (<0.04)
[2018-08-01 22:08] LABS: CO2 Carbon Dioxide 26 mmol/L (22-32); Chloride 95 mmol/L (101-111); Magnesium 1.5 mg/dL (1.9-2.7); Sodium 130 mmol/L (135-145)
[2018-08-01 22:11] LABS: Anion Gap 9 mmol/L (2-11); Potassium 2.7 mmol/L (3.5-5.0)
[2018-08-01] MEDS ORDERED: Potassium Chlor TAB* 20 MEQ TAB.ER PO ONE (22:17)
[2018-08-01] MEDS ORDERED: Magnesium Oxide TAB* 400 MG PO ONE (22:18)
--- NOTE | 2018-08-02 00:20 | HP ---
HISTORY AND PHYSICAL: DATE OF ADMISSION: 08/01/18 PROVIDER: Winsome Peterson NP. ATTENDING PHYSICIAN WHILE IN THE HOSPITAL: Dr. Delmar Winn* (dictated by Winsome Peterson NP). PRIMARY CARE PROVIDER: Dr. Lorenzana. CHIEF COMPLAINT: 1. Shortness of breath. 2. Diarrhea. HISTORY OF PRESENT ILLNESS: Ms. Egan is a 72-year-old female with a past medical history significant for atrial fibrillation, hypertension, and retinal vein thrombosis who reports progressively worsening shortness of breath x5 days with diarrhea that started 5 to 6 days ago. The patient reports that on , she was diagnosed with pneumonia and she was started on Ceftin 500 mg twice daily for 10 days. She was also given a course of steroids that she completed for 5 days. During the course of this treatment, the patient had a trip planned to [place], which she attended and returned from [place] last night at 12:00 a.m. The patient reports that over the past 5 days while in [place], she has had progressively worsening shortness of breath and progressively worsening diarrhea with 5 to 6 episodes of diarrhea daily. The patient does report that she has diarrhea with eating or drinking anything that is foul smelling. She also reports that she has been feeling nauseated. She denies any fever, chills , chest pain, or edema. Denies any cough, hemoptysis. She does report progressively worsening shortness of breath. She does report nausea and diarrhea. No abdominal pain, hematuria, dysuria, focal weakness, or sensory loss. Denies any visual complaints, dysphagia, arthralgias, myalgias, rashes, lesions, or open sores. Denies any psychosis or anxiety. While in the emergency room, the patient had routine lab work drawn. She was found to have a white blood cell count of 12.3, an elevated troponin initially of 0.11, an elevated creatinine of 1.23, magnesium of 1.2. Due to these findings and her being tachycardic, we were asked to see and evaluate her for admission. PAST MEDICAL HISTORY: Significant for: 1. Atrial fibrillation, on anticoagulation. 2. Hypertension. 3. History of retinal vein thrombosis. PAST SURGICAL HISTORY: 1. Hysterectomy. 2. Breast biopsy. HOME MEDICATIONS: Include: 1. Losartan 25 mg p.o. daily. 2. Vitamin B complex 1 cap p.o. daily. 3. Ascorbic acid 500 mg p.o. daily. 4. Eliquis 5 mg p.o. b.i.d. 5. Fish oil 1000 mg p.o. daily. 6. Vitamin D 1000 units p.o. daily. 7. Calcium 600 mg p.o. daily. 8. Furosemide 20 mg p.o. daily. 9. Tikosyn 125 mcg p.o. b.i.d. 10. Metoprolol 50 mg p.o. b.i.d. 11. Atorvastatin total of 30 mg p.o. daily. ALLERGIES: No known drug allergies. FAMILY HISTORY: Mother with a history of stroke, no reported history of diabetes. Father with lung cancer. SOCIAL HISTORY: The patient reports she has never smoked. She does drink on a weekly basis approximately up to 3 to 4 drinks daily. Denies any illicit drug use. She is . She lives with her . Surrogate decision maker in the event she is unable to make her own decisions is her daughter or son. She is a full code. REVIEW OF SYSTEMS: An 11-point review of systems was completed. All pertinent positives were mentioned in the HPI. PHYSICAL EXAMINATION GENERAL: Ms. Egan is a 72-year-old female. She is alert and oriented, resting on the stretcher in the emergency room. She does appear to be fatigued. VITAL SIGNS: Blood pressure 153/68, heart rate is 88, respirations are 23, O2 saturation is 100%, temperature was 98.7. HEENT: Head is atraumatic, normocephalic. Eyes: EOMs are intact. Sclerae anicteric and not pale. Oral mucosa appeared to be moist. NECK: Supple. LUNGS: Diminished bilaterally. CARDIAC: S1, S2. Irregular rate and rhythm. She is tachycardic on the monitor. ABDOMEN: Soft and nontender. Bowel sounds are present x4. EXTREMITIES: She is able to move all 4 extremities with 5/5 strength. NEUROLOGIC: The patient is awake, alert, and oriented x3. Speech is clear. Thought process is intact. There are no gross focal deficits. SKIN: Intact. DIAGNOSTIC STUDIES/LAB DATA: WBCs are 12.3, RBCs 3.44, hemoglobin 10.8, hematocrit is 33, platelet count is 280. INR is 1.79. Sodium 130, potassium 3.5, chloride 90, carbon dioxide is 30, anion gap is 10, BUN is 13, creatinine 1.23, glucose is 150, lactic acid 0.6, calcium 8.6, magnesium 1.2. T-bili is 1.10. Troponin was 0.11. Total protein was 6. TSH was 3.90. Urine is currently pending. The patient had a chest x-ray, radiologist's impression: New left upper lobe pneumonia, improved right upper lobe pneumonia. She had a CTA of the chest, radiologist's impression: No definite evidence of pulmonary emboli is noted. There is airspace disease in the left upper lobe and right upper lobe, suspicious for pneumonia with underlying emphysema. She had an electrocardiogram that showed atrial fibrillation, rate of 140s on admission. ASSESSMENT AND PLAN: Ms. Egan is a 72-year-old female with past medical history of atrial fibrillation, hypertension who presented to the emergency room with complaints of progressively worsening shortness of breath and diarrhea x5 days. She will be admitted under observation for: 1. Sepsis. The patient did meet sepsis criteria with tachycardia and tachypnea with an elevated white count and unknown source of pneumonia. The patient was given ceftriaxone and ciprofloxacin in the emergency room. She was also given 2000 cc bolus of fluid. I will continue her on IV fluids at 100 cc per hour. I will add urine for Strep pneumoniae and Legionella. I will change her antibiotics to Zosyn as the patient just recently completed a course of Ceftin and has recurrent pneumonia. She also does have a history of atrial fibrillation and is on Tikosyn and has an elevated QTc of 493. She does not have any wheezing at this time, so I will hold off on steroids. If her respiratory status becomes worse or she develops wheezing, we can add steroids at that time. 2. Pneumonia. I will continue her on Zosyn 3.375 g and then dosing per pharmacy. I have sent a urine for Legionella and Strep pneumoniae that is currently pending. 3. Elevated troponin. I suspect her elevated troponin is related to demand ischemia from her tachycardia. Her troponin initially was 0.11 and is trending down, second troponin was 0.06. The patient has denied any chest pain throughout this event. We will continue to monitor on telemetry and if the patient should develop chest pain or her symptoms change, we can ask cardiology to be involved at that time. 4. Atrial fibrillation. The patient currently takes metoprolol and Tikosyn. The patient reports she has not taken Tikosyn in 2 days. I did contact Dr. Mendoza from cardiology, who recommended resuming her Tikosyn at her current dose of 125 mcg twice daily with daily EKGs. The patient will be continued on her Eliquis as previously prescribed. 5. Hypokalemia. The patient is hypokalemic. The patient has been having diarrhea. I suspect this is related to dehydration. I will give her 60 mEq of potassium and repeat her potassium this evening. 6. Hypomagnesemia. The patient again has been having episodes of diarrhea for 5 days. I suspect this is related to dehydration. We will replace her magnesium and repeat a magnesium level in the a.m. 7. Hyponatremia. The patient does have a low sodium. Again, I suspect this is related to dehydration and poor p.o. intake. 8. Hypertension. I will hold her losartan. I will continue metoprolol as previously prescribed. 9. Hyperlipidemia. She will continue on atorvastatin 30 mg p.o. daily. 10. FEN. She can have a heart-healthy, decaf-okay diet. 11. Code status. She is a full code. 12. DVT prophylaxis. She will continue on her Eliquis. TIME SPENT: Time spent on this admission was approximately 60 minutes, greater than half that time was spent at the bedside reviewing events leading thus far to her hospitalization, performing my physical exam, and reviewing my plan of care. I have discussed this with my attending, Dr. Delmar Winn; he is in agreement with my plan. WINSOME PETERSON, TABLE GAMES DUAL RATE SUPERVISOR [id number]/[facility] #: [id number] [place]
[2018-08-02] MEDS ORDERED: Metoprolol Tartrate IV* 1 MG/ML 5 ML VIAL IV ONE ×2 (01:25→12:24)
[2018-08-02] MEDS: KCL 20 MEQ/100 ML IVPREMIX* 20 MEQ/100 ML BAG IV SCH (01:29)
[2018-08-02 02:09] LABS: Urine Appearance Cloudy; Urine Bacteria Absent (Absent); Urine Bilirubin Negative (Negative); Urine Blood 2+ (Negative); Urine Color Yellow; Urine Glucose 1+(50 mg/dL) (Negative); Urine Ketones Negative (Negative); Urine Nitrite Negative (Negative); Urine Protein 1+(30 mg/dL) (Negative); Urine Red Blood Cell 2+(6-10/hpf) (Absent); Urine Specific Gravity 1.029 (1.010-1.030); Urine Squamous Epithelial Cell Present (Absent); Urine Urobilinogen Negative (Negative); Urine White Blood Cell 1+(6-10/hpf) (Absent)
[2018-08-02] MEDS ORDERED: ZOSYN 3.375 GM Q8H per EXTENDED INFUSION IVPB SCH ×2 (03:00)
[2018-08-02 05:24] LABS: ABS Lymphocytes 0.6 10^3/ul (1.0-4.8); ABS Neutrophils 8.1 10^3/ul (1.5-7.7); Eosinophil % 0.2 %; Hematocrit 29 % (35-47); Lymphocyte % 6.2 %; Mean Corpuscular HGB Conc 34 g/dL (31-36); Mean Corpuscular Hemoglobin 33 pg (27-31); Mean Corpuscular Volume 95 fL (80-97); Nucleated Red Blood Cells % 0.1; Platelet Count 224 10^3/uL (150-450); Red Blood Count 3.08 10^6 /uL (3.70-4.87); Red Cell Distribution Width 15 % (10.5-15); White Blood Count 9.8 10^3/uL (3.5-10.8)
[2018-08-02 05:50] LABS: BUN/Creatinine Ratio 10.9 (8-20); EGFR African American 72.2 (>60); EGFR Non-African American 59.7 (>60); HDL Cholesterol 31.2 mg/dL; Potassium 3.9 mmol/L (3.5-5.0)
[2018-08-02] MEDS: Metoprolol Tartrate TAB* 50 mg PO SCH ×3 (05:52→22:05)
[2018-08-02] MEDS: NS 0.9% 1000 ML** 1,000 ML IV SCH (07:09)
[2018-08-02] MEDS: ZOSYN 3.375 GM Q8H per EXTENDED INFUSION IVPB SCH ×6 (07:40→21:00)
[2018-08-02] MEDS: metroNIDAZOLE TAB* 250 MG PO SCH ×3 (08:38→22:05)
[2018-08-02] MEDS: Dofetilide CAP* 125 MCG PO SCH ×2 (08:39→22:05)
[2018-08-02] MEDS: Apixaban* 5 MG TAB PO SCH ×2 (08:40→22:05)
[2018-08-02] MEDS: Magnesium Oxide TAB* 400 MG PO SCH (08:40)
[2018-08-02] MEDS: Ascorbic Acid TAB* 500 MG PO SCH (08:40)
[2018-08-02] MEDS: Atorvastatin* 10 MG TAB PO SCH (08:45)
[2018-08-02] MEDS: Potassium Chlor TAB* 20 MEQ TAB.ER PO SCH (08:46)
[2018-08-02] MEDS ORDERED: Adenosine* 3 MG/ML VIAL IV PUSH ONE (10:24)
[2018-08-02] MEDS ORDERED: Adenosine* 3 MG/ML VIAL ONE (10:51)
--- NOTE | 2018-08-02 11:32 | PN ---
Subjective Date of Service: 08/02/18 Interval History: Patient seen and examined. Tele strips and EKGs reviewed from overnight. Patient went from RSR to questionable SVT/aflutter overnight into this morning. Discussed missed doses of Tikosyn with patient and acute illness and dehydration now. Patient denies acute SOB but still has mild dyspnea with exertion, denies chest pain, no fever or chills, does endorse feeling better since having fluids. Objective Active Medications: Acetaminophen (Tylenol Tab*) 650 mg PO Q4H PRN PRN Reason: FEVER/PAIN Apixaban (Eliquis*) 5 mg PO BID [facility] Last Admin: 08/02/18 08:40 Dose: 5 mg Ascorbic Acid (Vitamin C Tab*) 500 mg PO DAILY [facility] Last Admin: 08/02/18 08:40 Dose: 500 mg Atorvastatin Calcium (Lipitor*) 30 mg PO DAILY [facility] Last Admin: 08/02/18 08:45 Dose: 30 mg Dofetilide (Tikosyn Cap*) 125 mcg PO BID [facility] Last Admin: 08/02/18 08:39 Dose: 125 mcg Sodium Chloride (Ns 0.9% 1000 Ml) 1,000 mls @ 75 mls/hr IV PER RATE [facility] Last Admin: 08/02/18 07:09 Dose: 75 mls/hr Magnesium Oxide (Magox 400 Tab*) 400 mg PO DAILY [facility] Last Admin: 08/02/18 08:40 Dose: 400 mg Metoprolol Tartrate (Lopressor Tab*) 50 mg PO BID [facility] Last Admin: 08/02/18 08:51 Dose: 50 mg Metronidazole (Flagyl Tab*) 500 mg PO TID [facility] Last Admin: 08/02/18 08:38 Dose: 500 mg Potassium Chloride (Klor Con Er Tab*) 20 meq PO DAILY [facility] Last Admin: 08/02/18 08:46 Dose: 20 meq Vital Signs - 8 hr 08/02/18 07:54 Temperature 99.3 F Pulse Rate 132 Respiratory 18 Rate Blood Pressure 139/81 (mmHg) O2 Sat by Pulse 99 Oximetry Oxygen Devices in Use Now: Nasal Cannula Appearance: alert, anxious Eyes: No Scleral Icterus, PERRLA Ears/Nose/Mouth/Throat: NL Teeth, Lips, Gums, - - dry oral mucosa Neck: NL Appearance and Movements; NL JVP, Trachea Midline Respiratory: - - diminished bases, no wheeze rales or rhonchi Cardiovascular: NL Sounds; No Murmurs; No JVD, No Edema, - - tachycardia Abdominal: NL Sounds; No Tenderness; No Distention Extremities: No Edema, No Clubbing, Cyanosis Skin: No Rash or Ulcers Neurological: Alert and Oriented x 3 Nutrition: Taking PO's Result Diagrams: 08/02/18 05:01 08/02/18 04:58 Microbiology and Other Data: Microbiology 08/02/18 01:55 Legionella Urinary Antigen - Final Urine Negative Legionella Antigen Streptococcus pneumoniae Ag Screen - Final Negative S. pneumo Antigen 08/02/18 03:20 Stool Gross Appearance - Final Stool C. difficile DNA Amplification - Final 027 Presumptive NEGATIVE Toxigenic C.diff POSITIVE Assess/Plan/Problems-Billing Assessment: This is a 72 year old female with history of afib and hypertension that presented to the ER with complaints of SOB and diarrhea, admitted for bilateral PNA, failed outpatient treatment and cdiff. - Patient Problems (1) CAP (community acquired pneumonia) Code(s): J18.9 - PNEUMONIA, UNSPECIFIED ORGANISM SNOMED Code(s): 182068334 Comment: - Failed treatment with cefuroxime - Continue zosyn per pharmacy - Mild leukocytosis at admission with shortness of breath, continue supplemental O2 - Follow blood cultures (2) Clostridium difficile diarrhea Code(s): A04.72 - ENTEROCOLITIS D/T CLOSTRIDIUM DIFFICILE, NOT SPCF RECUR SNOMED Code(s): 4152321805236 Comment: - continue PO flagyl (3) Electrolyte abnormality Code(s): E87.8 - OTH DISORDERS OF ELECTROLYTE AND FLUID BALANCE, NEC SNOMED Code(s): 718810871 Comment: - Secondary to profuse diarrhea/cdiff and dehydration - Improved with IVF; Na, K and Mg repleted and improving - Continue to monitor lytes (4) Atrial flutter with rapid ventricular response Code(s): I48.92 - UNSPECIFIED ATRIAL FLUTTER SNOMED Code(s): 4985023 Comment: - Missed tikosyn doses 2/2 recent travel and illness, HR was 63 at admission and RSR, currently 140s and aflutter - Dr. Mendoza consulted - Did not convert with adenosine - Continue tikosyn at current dose, BB - Plan for WIN with cardioversion Saturday - Continue anticoagulation with eliquis (5) Alcohol use Code(s): Z78.9 - OTHER SPECIFIED HEALTH STATUS SNOMED Code(s): 487903 Comment: - Questionable amount/daily intake - will place on WAM as precaution (6) Shortness of breath Code(s): R06.02 - SHORTNESS OF BREATH SNOMED Code(s): 981263975 Comment: - 2/2 PNA and arrhythmia - Continue supplemental O2 and wean as tolerated (7) DVT prophylaxis Code(s): Z29.9 - ENCOUNTER FOR PROPHYLACTIC MEASURES, UNSPECIFIED SNOMED Code( s): 079902239 Comment: - Eliquis (8) Full code status Code(s): Z78.9 - OTHER SPECIFIED HEALTH STATUS SNOMED Code(s): 312007564
[2018-08-02] MEDS ORDERED: Zosyn per Pharmacy* NOTE FOLLOW UP PRN (11:45)
[2018-08-02] MEDS: Folic Acid TAB* 1 MG PO SCH (12:48)
[2018-08-02] MEDS: Thiamine TAB* 100 MG TAB PO SCH (12:48)
[2018-08-02] MEDS ORDERED: LORazepam TAB(*) 1 MG PO SCH (13:00)
--- NOTE | 2018-08-02 21:06 | CONS ---
CC: Dr. Maicol Lorenzana; Hospitalist CONSULTATION REPORT: DATE OF CONSULT: 08/02/18 Dear Luis Fernando, I had the pleasure of seeing Swapna Egan today. I was asked to consult due to rapid narro w complex tachycardia. HISTORY OF PRESENT ILLNESS: Swapna Egan is a 72-year-old woman who I have been following since 2017 for paroxysmal AFib. Swapna has been in [place] for the last 2 weeks. Prior to leaving for [place] she had some pulmonary sym ptoms, was diagnosed with pneumonia and was started on steroids and cephalosporin oral antibiotic. A ccording to the patient and her , she initially improved; however, at one point while in [place] with her family, she became very winded with any kind of exertion, and she also developed marked armando rrhea and has subsequently been diagnosed with Clostridium difficile. On arrival back to the [place], she presented to the hospital because of worsening shortness of breath and diarrhea, was found to be in atrial fibrillation with a rapid ventricular rate, had been positive for Clostridium difficile. Overnight, the patient's heart rate increased and is quite regular. The patient denies any awareness of palpitations or racing of the heart. The patient had told the admitting doctor that because of h er diarrhea, she had not taken her Tikosyn for a couple of days. She stated that she had been safely taking her Eliquis, but her Tikosyn and Eliquis are taken together. Her , who is a retired p hysician, thinks it is unlikely that she has been compliant with her medication over the last couple of days when she was ill. The patient is feeling better than yesterday. PAST MEDICAL HISTORY: The patient has a past medical history of: 1. Paroxysmal atrial fibrillation, diagnosed in 2017, for which she has been asymptomatic in terms o f palpitations and on chronic anticoagulation for stroke prevention and Tikosyn for rhythm control wi th good control until now. 2. Hypertension. 3. Pulmonary disease, treated by Dr. Schrader, cleared/improved with steroids, 2017. Nodes noted on CT scan in 2017. 4. Retinal vein thrombosis, 2018, on cholesterol. 5. Thyroid disease. PAST SURGICAL HISTORY: Hysterectomy, breast biopsy. OUTPATIENT MEDICATIONS: Included: 1. Aspirin 81 mg a day. 2. Lipitor 20 mg a day. 3. Calcium. 4. Dofetilide 125 mcg b.i.d. 5. Eliquis 5 mg b.i.d. 6. Fish oil 1 g a day. 7. Lasix 20 mg a day. 8. Losartan 25 mg a day. 9. Metoprolol ER 50 mg b.i.d. 10. Potassium chloride 20 mEq a day. 11. Omeprazole 20 mg a day. 12. Vitamin B, C, and D. ALLERGIES AND INTOLERANCES: Include SOTALOL. FAMILY HISTORY: Significant that her mother had a history of hypertension and stroke. Colitis runs in her family. SOCIAL HISTORY: The patient is . Her is a retired OB-SECURITY OPERATIONS SPECIALIST. Never smoked cigarettes. She drinks and her states she has been drinking at least 5 glasses of alcohol a day and poss ibly more and he mentioned that he thinks she is drinking too much and they probably need assistance to get her to decrease her alcohol intake. REVIEW OF SYSTEMS: Positive for the shortness of breath and pneumonia symptoms prior to leaving for [place], marked exercise intolerance in [place]. She denied orthopnea or chest pain. Positive for the f requent diarrhea, fecal incontinence. All other 14-point review of systems is negative. PHYSICAL EXAM: The patient was lying in bed with legs up, appeared comfortable and chatty, but a bit hyperactive on the verge of being agitated. She did seem to recognize me, was pleasant and cooperat nnamdi. Neurologically, awake, alert, and oriented to person and place; I did not evaluate for time. S kin: Age appropriate changes, warm, dry, without appreciable cyanosis. HEENT: Mucous membranes wer e moist. Neck without increased JVP. Good carotid pulses. Free of bruits. Breath sounds diminishe d. Coronary: S1, S2, very tachycardic with appreciable murmurs. Abdomen: Active bowel sounds and s oft. Lower extremities were free of edema, warm, and symmetrical in size. DIAGNOSTIC STUDIES/LAB DATA: The patient's 12-lead ECG done this morning shows a regular narrow comp ignacio tachycardia at 135 beats per minute suspicious for flutter. Carotid sinus massage and Adenocard w ere done confirming she has atrial flutter. EKG done yesterday on admission could be atrial flutter with variable block versus AFib and overall v entricular rate of 143 beats per minute. Corrected QT interval on today's EKG was 473 milliseconds. Labs: White count 12.3, hematocrit 33, platelets 280. INR 1.79. Sodium 130, potassium 3.9 (improve d from 2.7), chloride 98, bicarb 28, glucose 139, BUN 10, creatinine 0.92. Troponins, #1 0.11, #2 0. 06, #3 0.06. Lipids: Total cholesterol 101, triglycerides 107, HDL cholesterol 31, LDL cholesterol 48. TSH 3.9, free T4 1.5. Microbiology was positive for toxigenic C. diff. Her serologies were neg ative for Streptococcus pneumoniae or legionella. Blood cultures are pending. Outpatient cardiology studies include an echocardiogram from 01/16/17 showing an ejection fraction gr eater than 65% with pseudonormal diastolic dysfunction, normal right ventricular systolic function, a trial enlargement, mitral annular calcification with moderate mitral insufficiency, borderline mitral stenosis, mild- to-moderate tricuspid insufficiency, and PA pressure elevated at 49 mmHg. The patient's most recent EKG is 03/11/18 showing sinus bradycardia at 58 beats per minute with PACs, corrected QT interval 491 milliseconds. Chest x-ray result from 08/01/18 showed new left upper lobe pneumonia, improved right upper lobe pneu monia. CTA of the thorax from 08/01/18 was negative for pulmonary emboli. Airspace disease in the left uppe r lobe and right upper lobe suspicious for pneumonia and underlying emphysema. IMPRESSION AND PLAN: In summary, Swapna Egan is a 72-year-old woman with a past medical history of paroxysmal atrial fibrillation and paroxysmal atrial flutter, who presented with atrial flutter and a tachycardic response today in the setting of pneumonia and Clostridium difficile and presumed holdin g of her Tikosyn and Eliquis. I am also concerned that the patient is going through alcohol withdraw al based on her behavior. Both her increased alcohol intake and the withdrawal put her at risk for a trial flutter and fibrillation as well. Short term, I am not going to cardiovert her without transesophageal echo guidance, which I cannot do until Saturday due to the holiday weekend. So for now we will resume her Eliquis, load her with Isrrael syn with monitoring. We will rate control her and I have increased her metoprolol adding intravenous doses. Treatment of any withdrawal and treatment of the underlying pulmonary and colitis infection will also help us control her rate. We will continue with anticoagulation and rate control, and once she is medically more stable and we are able to undergo transesophageal echo, we will set her up for a WIN-guided echocardiogram. The upper lobe pneumonias make me concerned about the possibility of aspiration. I did not appreciat e a history of swallowing difficulties, but this possibility in the setting of increased alcohol may want to be explored non-urgently on an outpatient basis to prevent recurrence. Thank you for allowing me to assist in this nice woman's care. [id number]/[facility] #: [id number]
[2018-08-03] MEDS: NS 0.9% 1000 ML** 1,000 ML IV SCH (01:01)
[2018-08-03] MEDS ORDERED: Albuterol/Ipratropium NEB.SOL* Albuterol 2.5 MG/Ipratropium 0.5 MG 3 ML INH PRN (02:27)
[2018-08-03] MEDS: ZOSYN 3.375 GM Q8H per EXTENDED INFUSION IVPB SCH ×6 (04:30→21:17)
[2018-08-03 05:52] LABS: BUN/Creatinine Ratio 10.2 (8-20); Calcium 8.6 mg/dL (8.6-10.3); EGFR African American 67.1 (>60); EGFR Non-African American 55.5 (>60); Potassium 3.8 mmol/L (3.5-5.0)
[2018-08-03 09:01] LABS: Magnesium 1.7 mg/dL (1.9-2.7)
[2018-08-03] MEDS: Folic Acid TAB* 1 MG PO SCH (10:29)
[2018-08-03] MEDS: Apixaban* 5 MG TAB PO SCH ×2 (10:30→21:17)
[2018-08-03] MEDS: Atorvastatin* 10 MG TAB PO SCH (10:30)
[2018-08-03] MEDS: metroNIDAZOLE TAB* 250 MG PO SCH ×3 (10:30→21:17)
[2018-08-03] MEDS: Metoprolol Tartrate TAB* 50 mg PO SCH ×2 (10:31→21:17)
[2018-08-03] MEDS: Dofetilide CAP* 125 MCG PO SCH ×2 (10:31→21:17)
[2018-08-03] MEDS: Multivitamins/Minerals TAB PO SCH (10:32)
[2018-08-03] MEDS: Thiamine TAB* 100 MG TAB PO SCH (10:32)
[2018-08-03] MEDS: Ascorbic Acid TAB* 500 MG PO SCH (10:32)
[2018-08-03] MEDS: Potassium Chlor TAB* 20 MEQ TAB.ER PO SCH (10:33)
[2018-08-03] MEDS: Magnesium Oxide TAB* 400 MG PO SCH (10:33)
--- NOTE | 2018-08-03 11:53 | ECHO ---
*[facility]* [place] [address] Fax #: [phone] Limited Transthoracic Echocardiogram Patient: Julisa, Height: 66.1 in / Swapna Estrada 168 cm : 1945 Weight: 176 lb / 80 Study Date: 08/03/2018 kg Age: 72 BP: 117 / 67 Gender: F BMI/BSA: 28.3 kg/m^2 HR: 100 bpm / 1.95 m^2 *[employer] Supervisor: * Katherine Maxwell [facility] *Referring Physician: Sudha Marvin *Reading Physician: * Mckenzie Mendoza MD Indications: Abnormal EKG. History: Pulmonary disease. Atrial fibrillation. Risk factors: Hypertension. Conclusions Summary: 1. Left ventricle: The cavity size is mildly reduced. Wall thickness is moderately increased. Systolic function is grossly normal. The estimated ejection fraction is 50-55%. 2. Right ventricle: Systolic function is mildly to moderately reduced. 3. The patient was in atrial fibrillation throughout the study. 4. Compared with prior echocardiogram of 01/16/17, prior ejection fraction 65%, prior right ventricle function is low normal. Study data: Transthoracic echocardiogram, limited study. Procedure: Transthoracic echocardiography was performed. Image quality was fair. Location: Bedside. Patient status: Inpatient. Patient room number: 436. Rhythm: Atrial fibrillation. Findings Left ventricle: The cavity size is mildly reduced. Wall thickness is moderately increased. Systolic function is grossly normal. The estimated ejection fraction is 50-55%. Left ventricular diastolic function parameters are indeterminate. Right ventricle: The cavity size is normal. Wall thickness is mildly to moderately increased. Systolic function is mildly to moderately reduced. Left atrium: The atrium is dilated. Right atrium: The atrium is dilated. Pericardium: A small pericardial effusion is identified posterior to the heart. Measurements Left ventricle Value Ref Ventricular septum Value Ref JAYY, LAX max (L) 3.3 cm 3.8 - 5.2 IVS, ED (H) 1.5 cm 0.6 - 0.9 PW, ED (H) 1.5 cm 0.6 - 0.9 Legend: (L) and (H) alba values outside specified reference range. Prepared and electronically signed by Mckenzie Mendoza MD 08/03/2018 11:52
[2018-08-03] MEDS: Lactobacillus Acidophilus* 1 TAB PO SCH (15:59)
--- NOTE | 2018-08-03 18:39 | PN ---
Subjective Date of Service: 08/03/18 Interval History: Resting in bed on assessment. at bedside. Patient reports she feels "improved" today. reports her mentation has improving. Patient continues to have diarrhea and reports it is about the same as previously. Denies cp, sob, palpitations, fever, chills Objective Active Medications: Acetaminophen (Tylenol Tab*) 650 mg PO Q4H PRN PRN Reason: FEVER/PAIN Albuterol/Ipratropium (Duoneb (Albuterol 2.5 Mg/Ipratropium 0.5 Mg)) 1 neb INH Q6H PRN PRN Reason: SOB/WHEEZING Last Admin: 08/03/18 03:30 Dose: 1 neb Apixaban (Eliquis*) 5 mg PO BID [facility] Last Admin: 08/03/18 10:30 Dose: 5 mg Ascorbic Acid (Vitamin C Tab*) 500 mg PO DAILY [facility] Last Admin: 08/03/18 10:32 Dose: 500 mg Atorvastatin Calcium (Lipitor*) 30 mg PO DAILY [facility] Last Admin: 08/03/18 10:30 Dose: 30 mg Dofetilide (Tikosyn Cap*) 125 mcg PO BID [facility] Last Admin: 08/03/18 10:31 Dose: 125 mcg Folic Acid (Folvite Tab*) 1 mg PO DAILY [facility] Last Admin: 08/03/18 10:29 Dose: 1 mg Piperacillin Sod/Tazobactam (Sod 3.375 gm/ Sodium Chloride) 100 mls @ 25 mls/ hr IVPB Q8H [facility] Last Admin: 08/03/18 11:47 Dose: 25 mls/hr Lactobacillus Rhamnosus (Lactobacillus Acidophilus*) 1 tab PO DAILY [facility] Last Admin: 08/03/18 15:59 Dose: 1 tab Lorazepam (Ativan Tab(*)) 0 - 6 mg PO .PER [facility] PROTOCOL [facility]; Protocol Last Admin: 08/02/18 12:49 Dose: 2 mg Magnesium Oxide (Magox 400 Tab*) 400 mg PO DAILY [facility] Last Admin: 08/03/18 10:33 Dose: 400 mg Metoprolol Tartrate (Lopressor Tab*) 50 mg PO BID [facility] Last Admin: 08/03/18 10:31 Dose: 50 mg Metronidazole (Flagyl Tab*) 500 mg PO TID [facility] Last Admin: 08/03/18 14:49 Dose: 500 mg Multivitamins/Minerals (Theragran/Minerals Tab*) 1 tab PO DAILY [facility] Last Admin: 08/03/18 10:32 Dose: 1 tab Pharmacy Consult (Vick Per Pharmacy*) 1 note FOLLOW UP . PRN PRN Reason: PER PROTOCOL Potassium Chloride (Klor Con Er Tab*) 20 meq PO DAILY [facility] Last Admin: 08/03/18 10:33 Dose: 20 meq Thiamine HCl (Vitamin B-1 Tab*) 100 mg PO DAILY [facility] Last Admin: 08/03/18 10:32 Dose: 100 mg Vital Signs - 8 hr 08/03/18 16:13 Temperature 97.1 F Pulse Rate 110 Respiratory 18 Rate Blood Pressure 109/66 (mmHg) O2 Sat by Pulse 99 Oximetry Oxygen Devices in Use Now: Nasal Cannula Appearance: Comfortable, NAD Eyes: No Scleral Icterus Ears/Nose/Mouth/Throat: Clear Oropharnyx, Mucous Membranes Moist Neck: NL Appearance and Movements; NL JVP Respiratory: Symmetrical Chest Expansion and Respiratory Effort, Clear to Auscultation Cardiovascular: NL Sounds; No Murmurs; No JVD, RRR, No Edema Abdominal: NL Sounds; No Tenderness; No Distention Lymphatic: No Cervical Adenopathy Extremities: No Edema Skin: No Rash or Ulcers Neurological: Alert and Oriented x 3 Nutrition: Taking PO's Result Diagrams: 08/02/18 05:01 08/03/18 05:18 Additional Lab and Data: Laboratory Results - last 24 hr 08/03/18 05:18 Sodium 132 L Potassium 3.8 Chloride 99 L Carbon Dioxide 26 Anion Gap 7 BUN 10 Creatinine 0.98 H Est GFR ( Amer) 67.1 Est GFR (Non-Af Amer) 55.5 BUN/Creatinine Ratio 10.2 Glucose 118 H Calcium 8.6 Magnesium 1.7 L Microbiology and Other Data: Microbiology 08/02/18 01:55 Legionella Urinary Antigen - Final Urine Negative Legionella Antigen Streptococcus pneumoniae Ag Screen - Final Negative S. pneumo Antigen 08/02/18 03:20 Stool Gross Appearance - Final Stool C. difficile DNA Amplification - Final 027 Presumptive NEGATIVE Toxigenic C.diff POSITIVE Assess/Plan/Problems-Billing Assessment: This is a 72 year old female with history of afib and hypertension that presented to the ER with complaints of SOB and diarrhea, admitted for bilateral PNA, failed outpatient treatment and cdiff. - Patient Problems (1) Alcohol use Comment: - Questionable amount/daily intake - Cont WAM as precaution - expressed concern given ETOH intake. Discussed outpatient tx with therapy or AA. Also discussed treating possible underlying depression/anxiety which could be contributing to ETOH intake (2) Atrial flutter with rapid ventricular response Comment: - Missed tikosyn doses 2/2 recent travel and illness, HR was 63 at admission and RSR, yesterday had episode of rapid afib/flutter; Did not convert with adenosine; Tikosyn loaded - Cont daily EKGs - Dr. Mendoza consulted - Currently afib in low 100s on tele - Plan for WIN with cardioversion Saturday - Continue anticoagulation with eliquis (3) CAP (community acquired pneumonia) Comment: - Failed treatment with cefuroxime - Continue zosyn per pharmacy - Mild leukocytosis at admission with shortness of breath, continue supplemental O2 - Follow blood cultures which have no growth so far (4) Clostridium difficile diarrhea Comment: - continue PO flagyl - Add probiotic (5) Electrolyte abnormality Comment: - Secondary to profuse diarrhea/cdiff and dehydration - Improved with IVF; Na, K and Mg repleted and improving - Continue to monitor lytes (6) Shortness of breath Comment: - 2/2 PNA and arrhythmia - Continue supplemental O2 and wean as tolerated (7) DVT prophylaxis Comment: - Eliquis (8) Full code status Status and Disposition: Inpatient. Discharge home when medically stable Attending: Wei Moody
[2018-08-03] MEDS ORDERED: Potassium Chlor TAB* 20 MEQ TAB.ER PO ONE (18:41)
[2018-08-03] MEDS ORDERED: Magnesium Sulfate 2 GM IV* 2 GM/50 ML BAG IVPB ONE (18:41)
[2018-08-03] MEDS ORDERED: Al Hydrox/Mg Hydrox/Simet LIQ* 30 ML UDC ONE (19:39)
--- NOTE | 2018-08-03 22:50 | PN ---
Subjective Date of Service: 08/03/18 - cc: GRAVES Interval History: The patient was seen with her mid day. She states she is overall feeling better. Diarrhea is not better, but she feels more herself, no trouble breathing while sleeping or in her room ambulating. Her again expressed concern about how to address his 's alcohol intake. Medications Active Medications: Acetaminophen (Tylenol Tab*) 650 mg PO Q4H PRN PRN Reason: FEVER/PAIN Al Hydrox/Mg Hydrox/Simethicone (Maalox Plus*) 30 ml PO Q6H PRN PRN Reason: INDIGESTION Albuterol/Ipratropium (Duoneb (Albuterol 2.5 Mg/Ipratropium 0.5 Mg)) 1 neb INH Q6H PRN PRN Reason: SOB/WHEEZING Last Admin: 08/03/18 03:30 Dose: 1 neb Apixaban (Eliquis*) 5 mg PO BID [facility] Last Admin: 08/03/18 21:17 Dose: 5 mg Ascorbic Acid (Vitamin C Tab*) 500 mg PO DAILY [facility] Last Admin: 08/03/18 10:32 Dose: 500 mg Atorvastatin Calcium (Lipitor*) 30 mg PO DAILY [facility] Last Admin: 08/03/18 10:30 Dose: 30 mg Dofetilide (Tikosyn Cap*) 125 mcg PO BID [facility] Last Admin: 08/03/18 21:17 Dose: 125 mcg Folic Acid (Folvite Tab*) 1 mg PO DAILY [facility] Last Admin: 08/03/18 10:29 Dose: 1 mg Piperacillin Sod/Tazobactam (Sod 3.375 gm/ Sodium Chloride) 100 mls @ 25 mls/ hr IVPB Q8H [facility] Last Admin: 08/03/18 21:17 Dose: 25 mls/hr Lactobacillus Rhamnosus (Lactobacillus Acidophilus*) 1 tab PO DAILY [facility] Last Admin: 08/03/18 15:59 Dose: 1 tab Lorazepam (Ativan Tab(*)) 0 - 6 mg PO .PER [facility] PROTOCOL [facility]; Protocol Last Admin: 08/02/18 12:49 Dose: 2 mg Magnesium Oxide (Magox 400 Tab*) 400 mg PO DAILY [facility] Last Admin: 08/03/18 10:33 Dose: 400 mg Metoprolol Tartrate (Lopressor Tab*) 50 mg PO BID [facility] Last Admin: 08/03/18 21:17 Dose: 50 mg Metronidazole (Flagyl Tab*) 500 mg PO TID [facility] Last Admin: 08/03/18 21:17 Dose: 500 mg Multivitamins/Minerals (Theragran/Minerals Tab*) 1 tab PO DAILY [facility] Last Admin: 08/03/18 10:32 Dose: 1 tab Pharmacy Consult (Vick Per Pharmacy*) 1 note FOLLOW UP . PRN PRN Reason: PER PROTOCOL Potassium Chloride (Klor Con Er Tab*) 20 meq PO DAILY [facility] Last Admin: 08/03/18 10:33 Dose: 20 meq Thiamine HCl (Vitamin B-1 Tab*) 100 mg PO DAILY [facility] Last Admin: 08/03/18 10:32 Dose: 100 mg Objective Vital Signs: Temp Pulse Resp BP Pulse Ox 97.1 F 102 24 125/80 99 08/03/18 22:25 08/03/18 22:25 08/03/18 22:25 08/03/18 22:25 08/03/18 22:25 Oxygen Devices in Use Now: None Appearance: older woman, in bed, pleasant, cooperative, calm. Eyes: No Scleral Icterus, PERRLA Ears/Nose/Mouth/Throat: Mucous Membranes Moist Neck: NL Appearance and Movements; NL JVP Respiratory: Symmetrical Chest Expansion and Respiratory Effort, Clear to Auscultation Cardiovascular: NL Sounds; No Murmurs; No JVD - irregular, tachycardia. Abdominal: NL Sounds; No Tenderness; No Distention Extremities: No Edema, No Clubbing, Cyanosis Skin: No Rash or Ulcers Neurological: NL Muscle Strength and Tone Lines/Tubes/Other Access: Clean, Dry and Intact Peripheral IV Laboratory Results: 08/02/18 05:01 08/03/18 05:18 INR (Anticoag Therapy) 1.79 (0.82-1.09) H 08/01/18 11:25 Total Bilirubin 1.10 mg/dL (0.2-1.0) H 08/01/18 11:25 AST 22 U/L (13-39) 08/01/18 11:25 ALT 20 U/L (7-52) 08/01/18 11:25 Alkaline Phosphatase 88 U/L (34-104) 08/01/18 11:25 Total Protein 6.0 g/dL (6.4-8.9) L 08/01/18 11:25 Albumin 3.2 g/dL (3.2-5.2) 08/01/18 11:25 Globulin 2.8 g/dL (2-4) 08/01/18 11:25 Albumin/Globulin Ratio 1.1 (1-3) 08/01/18 11:25 Triglycerides 107 mg/dL 08/02/18 04:58 Cholesterol 101 mg/dL 08/02/18 04:58 LDL Cholesterol 48 mg/dL 08/02/18 04:58 HDL Cholesterol 31.2 mg/dL 08/02/18 04:58 TSH 3.90 mcIU/mL (0.34-5.60) 08/01/18 11:26 08/01/18 08/01/18 08/01/18 11:25 17:06 20:25 Troponin I 0.11 H* 0.06 H* 0.06 H* Diagnostic Imaging: focused echo 08/03/18: EF 55%. EKG Data: Tele: afib/flutter, rates 95-100 bpm. Assessment/Plan 72 yo female with hx PAF and P flutter, pneumonia and C.diff, in aflutter and RVR yesterday. Unknown duration of fib/flutter, but likely days based on hx GRAVES in [place]. Uncertain if the patient stayed on Eliquis and TIkosyn, but unlikely after diarrhea set in. Plan: A fib/flutter: Rate control (improving) Anticoagulate Re loak Tikosyn WIN guided CV Saturday (soonest able to do). Hospilalists assisting the family with referrals for alcohol counseling. ID Management of pneumonia and C diff per hospitalists. Anemia: Noted, likely contributing to tachycardia. Work up and management via hospitalists.
[2018-08-04] MEDS: ZOSYN 3.375 GM Q8H per EXTENDED INFUSION IVPB SCH ×4 (03:59→11:36)
[2018-08-04 08:23] LABS: ABS Basophils 0.1 10^3/ul (0-0.2); ABS Eosinophils 0.2 10^3/ul (0-0.6); ABS Lymphocytes 1.5 10^3/ul (1.0-4.8); ABS Monocytes 0.6 10^3/ul (0-0.8); Eosinophil % 2.1 %; Hematocrit 31 % (35-47); Hemoglobin 10.2 g/dL (12.0-16.0); Lymphocyte % 15.8 %; Mean Corpuscular HGB Conc 33 g/dL (31-36); Mean Corpuscular Hemoglobin 32 pg (27-31); Mean Corpuscular Volume 96 fL (80-97); Mean Platelet Volume 8.5 fL (7.4-10.4); Platelet Count 208 10^3/uL (150-450); Red Blood Count 3.21 10^6 /uL (3.70-4.87); Red Cell Distribution Width 15 % (10.5-15); White Blood Count 9.3 10^3/uL (3.5-10.8)
[2018-08-04 08:43] LABS: BUN/Creatinine Ratio 12.2 (8-20); Calcium 8.5 mg/dL (8.6-10.3); EGFR African American 82.5 (>60); EGFR Non-African American 68.1 (>60); Magnesium 1.9 mg/dL (1.9-2.7); Potassium 3.7 mmol/L (3.5-5.0)
[2018-08-04] MEDS: Potassium Chlor TAB* 20 MEQ TAB.ER PO SCH (09:11)
[2018-08-04] MEDS: Lactobacillus Acidophilus* 1 TAB PO SCH (09:11)
[2018-08-04] MEDS: Folic Acid TAB* 1 MG PO SCH (09:11)
[2018-08-04] MEDS: Multivitamins/Minerals TAB PO SCH (09:11)
[2018-08-04] MEDS: Apixaban* 5 MG TAB PO SCH ×2 (09:12→21:20)
[2018-08-04] MEDS: Magnesium Oxide TAB* 400 MG PO SCH (09:12)
[2018-08-04] MEDS: Dofetilide CAP* 125 MCG PO SCH ×2 (09:13→21:21)
[2018-08-04] MEDS: metroNIDAZOLE TAB* 250 MG PO SCH ×2 (09:14→13:30)
[2018-08-04] MEDS: Atorvastatin* 10 MG TAB PO SCH (09:14)
[2018-08-04] MEDS: Ascorbic Acid TAB* 500 MG PO SCH (09:14)
[2018-08-04] MEDS: Thiamine TAB* 100 MG TAB PO SCH (09:14)
[2018-08-04] MEDS: Metoprolol Tartrate TAB* 50 mg PO SCH ×2 (09:15→21:21)
[2018-08-04] MEDS: Al Hydrox/Mg Hydrox/Simet LIQ* 30 ML UDC PO PRN ×2 (11:36→22:07)
--- NOTE | 2018-08-04 12:41 | PN ---
Subjective Date of Service: 08/04/18 - CC: Afib/flutter Interval History: The patient is feeling much better, Diarrhea is better. No SOB walking in room. C/o epigastric discomfort. Medications Active Medications: Acetaminophen (Tylenol Tab*) 650 mg PO Q4H PRN PRN Reason: FEVER/PAIN Al Hydrox/Mg Hydrox/Simethicone (Maalox Plus*) 30 ml PO Q6H PRN PRN Reason: INDIGESTION Last Admin: 08/04/18 11:36 Dose: 30 ml Albuterol/Ipratropium (Duoneb (Albuterol 2.5 Mg/Ipratropium 0.5 Mg)) 1 neb INH Q6H PRN PRN Reason: SOB/WHEEZING Last Admin: 08/03/18 03:30 Dose: 1 neb Apixaban (Eliquis*) 5 mg PO BID [facility] Last Admin: 08/04/18 09:12 Dose: 5 mg Ascorbic Acid (Vitamin C Tab*) 500 mg PO DAILY [facility] Last Admin: 08/04/18 09:14 Dose: 500 mg Atorvastatin Calcium (Lipitor*) 30 mg PO DAILY [facility] Last Admin: 08/04/18 09:14 Dose: 30 mg Dofetilide (Tikosyn Cap*) 125 mcg PO BID [facility] Last Admin: 08/04/18 09:13 Dose: 125 mcg Folic Acid (Folvite Tab*) 1 mg PO DAILY [facility] Last Admin: 08/04/18 09:11 Dose: 1 mg Piperacillin Sod/Tazobactam (Sod 3.375 gm/ Sodium Chloride) 100 mls @ 25 mls/ hr IVPB Q8H [facility] Last Admin: 08/04/18 11:36 Dose: 25 mls/hr Lactobacillus Rhamnosus (Lactobacillus Acidophilus*) 1 tab PO DAILY [facility] Last Admin: 08/04/18 09:11 Dose: 1 tab Lorazepam (Ativan Tab(*)) 0 - 6 mg PO .PER [facility] PROTOCOL [facility]; Protocol Last Admin: 08/02/18 12:49 Dose: 2 mg Magnesium Oxide (Magox 400 Tab*) 400 mg PO DAILY [facility] Last Admin: 08/04/18 09:12 Dose: 400 mg Metoprolol Tartrate (Lopressor Tab*) 50 mg PO BID [facility] Last Admin: 08/04/18 09:15 Dose: 50 mg Metronidazole (Flagyl Tab*) 500 mg PO TID [facility] Last Admin: 08/04/18 09:14 Dose: 500 mg Multivitamins/Minerals (Theragran/Minerals Tab*) 1 tab PO DAILY [facility] Last Admin: 08/04/18 09:11 Dose: 1 tab Pharmacy Consult (Zopadmini Per Pharmacy*) 1 note FOLLOW UP . PRN PRN Reason: PER PROTOCOL Potassium Chloride (Klor Con Er Tab*) 20 meq PO DAILY [facility] Last Admin: 08/04/18 09:11 Dose: 20 meq Thiamine HCl (Vitamin B-1 Tab*) 100 mg PO DAILY [facility] Last Admin: 08/04/18 09:14 Dose: 100 mg Objective Vital Signs: Temp Pulse Resp BP Pulse Ox 96.3 F 97 16 106/74 100 08/04/18 12:20 08/04/18 12:20 08/04/18 12:20 08/04/18 12:20 08/04/18 12:20 Oxygen Devices in Use Now: Nasal Cannula Appearance: older woman, seated, pleasant, cooperative, calm. Eyes: No Scleral Icterus, PERRLA Ears/Nose/Mouth/Throat: Mucous Membranes Moist Neck: NL Appearance and Movements; NL JVP Respiratory: Symmetrical Chest Expansion and Respiratory Effort, Clear to Auscultation Cardiovascular: NL Sounds; No Murmurs; No JVD - irregular, tachycardia. Abdominal: NL Sounds; No Tenderness; No Distention Extremities: No Edema, No Clubbing, Cyanosis Skin: No Rash or Ulcers Neurological: NL Muscle Strength and Tone Lines/Tubes/Other Access: Clean, Dry and Intact Peripheral IV Laboratory Results: 08/04/18 07:55 08/04/18 07:55 INR (Anticoag Therapy) 1.79 (0.82-1.09) H 08/01/18 11:25 Total Bilirubin 1.10 mg/dL (0.2-1.0) H 08/01/18 11:25 AST 22 U/L (13-39) 08/01/18 11:25 ALT 20 U/L (7-52) 08/01/18 11:25 Alkaline Phosphatase 88 U/L (34-104) 08/01/18 11:25 Total Protein 6.0 g/dL (6.4-8.9) L 08/01/18 11:25 Albumin 3.2 g/dL (3.2-5.2) 08/01/18 11:25 Globulin 2.8 g/dL (2-4) 08/01/18 11:25 Albumin/Globulin Ratio 1.1 (1-3) 08/01/18 11:25 Triglycerides 107 mg/dL 08/02/18 04:58 Cholesterol 101 mg/dL 08/02/18 04:58 LDL Cholesterol 48 mg/dL 08/02/18 04:58 HDL Cholesterol 31.2 mg/dL 08/02/18 04:58 TSH 3.90 mcIU/mL (0.34-5.60) 08/01/18 11:26 08/01/18 08/01/18 08/01/18 11:25 17:06 20:25 Troponin I 0.11 H* 0.06 H* 0.06 H* Diagnostic Imaging: focused echo 08/03/18: EF 55%. EKG Data: Tele: afib/flutter, rates 95-100 bpm. Assessment/Plan 72 yo female with hx PAF and P a.flutter, pneumonia and C.diff, in aflutter on admission. Unknown duration of fib/flutter, but likely days based on hx GRAVES in [place]. Uncertain if the patient stayed on Eliquis and TIkosyn, but unlikely after diarrhea set in. Plan: A fib/flutter: Rate control (improving) Anticoagulate Re load Tikosyn WIN guided CV tomorrow. Epigastic discomfort likely GI, made hospitalist aware. Trops: mild, most likely from Aflutter, RVR. Can f/u as outpatient.
[2018-08-04] MEDS ORDERED: Magnesium Sulfate 2 GM IV* 2 GM/50 ML BAG IVPB ONE (16:08)
[2018-08-04] MEDS ORDERED: Potassium Chlor TAB* 20 MEQ TAB.ER PO ONE (16:08)
--- NOTE | 2018-08-04 16:22 | PN ---
Subjective Date of Service: 08/04/18 Interval History: Patient sitting in chair on assessment. Reports diarrhea is decrease in amount, but increased frequency continues. Reports she is also noting more form to stool. Denies abd pain, fever, chills. Denies cp, palpitations, sob. Patient did report some stomach "upset" to corn popper. But denies nausea. Objective Active Medications: Acetaminophen (Tylenol Tab*) 650 mg PO Q4H PRN PRN Reason: FEVER/PAIN Last Admin: 08/04/18 14:54 Dose: 650 mg Al Hydrox/Mg Hydrox/Simethicone (Maalox Plus*) 30 ml PO Q6H PRN PRN Reason: INDIGESTION Last Admin: 08/04/18 11:36 Dose: 30 ml Albuterol/Ipratropium (Duoneb (Albuterol 2.5 Mg/Ipratropium 0.5 Mg)) 1 neb INH Q6H PRN PRN Reason: SOB/WHEEZING Last Admin: 08/03/18 03:30 Dose: 1 neb Amoxicillin/Clavulanate Potassium (Augmentin Tab*) 875 mg PO BID [facility] Apixaban (Eliquis*) 5 mg PO BID [facility] Last Admin: 08/04/18 09:12 Dose: 5 mg Ascorbic Acid (Vitamin C Tab*) 500 mg PO DAILY [facility] Last Admin: 08/04/18 09:14 Dose: 500 mg Atorvastatin Calcium (Lipitor*) 30 mg PO DAILY [facility] Last Admin: 08/04/18 09:14 Dose: 30 mg Dofetilide (Tikosyn Cap*) 125 mcg PO BID [facility] Last Admin: 08/04/18 09:13 Dose: 125 mcg Folic Acid (Folvite Tab*) 1 mg PO DAILY [facility] Last Admin: 08/04/18 09:11 Dose: 1 mg Magnesium Sulfate (Magnesium Sulfate 2 Gm Iv*) 2 gm in 50 mls @ 50 mls/hr IVPB ONCE ONE Stop: 08/04/18 17:07 Lactobacillus Rhamnosus (Lactobacillus Acidophilus*) 1 tab PO DAILY [facility] Last Admin: 08/04/18 09:11 Dose: 1 tab Lorazepam (Ativan Tab(*)) 0 - 6 mg PO .PER [facility] PROTOCOL [facility]; Protocol Last Admin: 08/02/18 12:49 Dose: 2 mg Magnesium Oxide (Magox 400 Tab*) 400 mg PO DAILY [facility] Last Admin: 08/04/18 09:12 Dose: 400 mg Metoprolol Tartrate (Lopressor Tab*) 50 mg PO BID [facility] Last Admin: 08/04/18 09:15 Dose: 50 mg Multivitamins/Minerals (Theragran/Minerals Tab*) 1 tab PO DAILY [facility] Last Admin: 08/04/18 09:11 Dose: 1 tab Pharmacy Consult (Zopadmini Per Pharmacy*) 1 note FOLLOW UP . PRN PRN Reason: PER PROTOCOL Potassium Chloride (Klor Con Er Tab*) 20 meq PO DAILY [facility] Last Admin: 08/04/18 09:11 Dose: 20 meq Thiamine HCl (Vitamin B-1 Tab*) 100 mg PO DAILY [facility] Last Admin: 08/04/18 09:14 Dose: 100 mg Vancomycin HCl (Vancomycin Cap*) 125 mg PO QID [facility] Stop: 08/12/18 08:59 Vital Signs - 8 hr 08/04/18 08/04/18 08/04/18 10:05 12:20 14:00 Temperature 96.3 F 97 F Pulse Rate 143 97 117 Respiratory 20 16 16 Rate Blood Pressure 131/73 106/74 104/79 (mmHg) O2 Sat by Pulse 98 100 100 Oximetry Oxygen Devices in Use Now: Nasal Cannula Appearance: Comfortable, NAD Eyes: No Scleral Icterus Ears/Nose/Mouth/Throat: Clear Oropharnyx, Mucous Membranes Moist Neck: NL Appearance and Movements; NL JVP Respiratory: Symmetrical Chest Expansion and Respiratory Effort, Clear to Auscultation Cardiovascular: NL Sounds; No Murmurs; No JVD, No Edema Abdominal: NL Sounds; No Tenderness; No Distention Lymphatic: No Cervical Adenopathy Extremities: No Clubbing, Cyanosis Skin: No Rash or Ulcers Neurological: Alert and Oriented x 3 Nutrition: Taking PO's Result Diagrams: 08/04/18 07:55 08/04/18 07:55 Additional Lab and Data: Laboratory Results - last 24 hr 08/04/18 08/04/18 07:55 07:55 WBC 9.3 RBC 3.21 L Hgb 10.2 L Hct 31 L MCV 96 MCH 32 H MCHC 33 RDW 15 Plt Count 208 MPV 8.5 Neut % (Auto) 75.3 Lymph % (Auto) 15.8 [place] % (Auto) 6.0 Eos % (Auto) 2.1 Baso % (Auto) 0.8 Absolute Neuts (auto) 7.0 Absolute Lymphs (auto) 1.5 Absolute Monos (auto) 0.6 Absolute Eos (auto) 0.2 Absolute Basos (auto) 0.1 Absolute Nucleated RBC 0.0 Nucleated RBC % 0.0 Sodium 132 L Potassium 3.7 Chloride 99 L Carbon Dioxide 26 Anion Gap 7 BUN 10 Creatinine 0.82 Est GFR ( Amer) 82.5 Est GFR (Non-Af Amer) 68.1 BUN/Creatinine Ratio 12.2 Glucose 90 Calcium 8.5 L Magnesium 1.9 Microbiology and Other Data: Microbiology 08/02/18 01:55 Legionella Urinary Antigen - Final Urine Negative Legionella Antigen Streptococcus pneumoniae Ag Screen - Final Negative S. pneumo Antigen 08/02/18 03:20 Stool Gross Appearance - Final Stool C. difficile DNA Amplification - Final 027 Presumptive NEGATIVE Toxigenic C.diff POSITIVE Assess/Plan/Problems-Billing Assessment: This is a 72 year old female with history of afib and hypertension that presented to the ER with complaints of SOB and diarrhea, admitted for bilateral PNA, failed outpatient treatment and cdiff. - Patient Problems (1) Alcohol use Comment: - Questionable amount/daily intake - Cont WAM as precaution - expressed concern given ETOH intake. Discussed outpatient tx with therapy or AA. Also discussed treating possible underlying depression/anxiety which could be contributing to ETOH intake - Discussed with patient PCP who plans to refer patient to Neal B (therapist) (2) Atrial flutter with rapid ventricular response Comment: - Missed tikosyn doses 2/2 recent travel and illness, HR was 63 at admission and RSR, 08/02 had episode of rapid afib/flutter; Did not convert with adenosine ; Tikosyn loaded - Cont daily EKGs - Dr. Mendoza consulted - Currently afib in low 100s on tele - Plan for WIN with cardioversion Saturday - Continue anticoagulation with eliquis (3) CAP (community acquired pneumonia) Comment: - Failed treatment with cefuroxime - Was on zosyn, but will now transition to Augmentin PO - Mild leukocytosis at admission with shortness of breath - Wean supplemental O2 - Follow blood cultures which have no growth so far - Discusse swallowing difficulties and vomiting which she denies both. Given recent GI upset maybe acid reflux at night? Will start Protonix (4) Clostridium difficile diarrhea Comment: - Was on PO flagyl. Changed to Vanco to complete 10 day tx - Added probiotic (5) Electrolyte abnormality Comment: - Secondary to profuse diarrhea/cdiff and dehydration - Improved with IVF; Na, K and Mg repleted and improving - Continue to monitor lytes (6) Shortness of breath Comment: - 2/2 PNA and arrhythmia - Continue supplemental O2 and wean as tolerated (7) DVT prophylaxis Comment: - Boris (8) Full code status Status and Disposition: Inpatient. Discharge home when medically stable Attending: Wei Moody
[2018-08-04] MEDS: Amoxicillin/Clavulanate TAB* 875 MG PO SCH (21:20)
[2018-08-05 07:01] LABS: BUN/Creatinine Ratio 11.7 (8-20); Calcium 8.6 mg/dL (8.6-10.3); EGFR African American 88.7 (>60); EGFR Non-African American 73.3 (>60); Potassium 4.3 mmol/L (3.5-5.0)
[2018-08-05] MEDS: Amoxicillin/Clavulanate TAB* 875 MG PO SCH ×2 (07:10→21:41)
[2018-08-05] MEDS: Potassium Chlor TAB* 20 MEQ TAB.ER PO SCH (07:11)
[2018-08-05] MEDS: Apixaban* 5 MG TAB PO SCH ×2 (07:11→21:42)
[2018-08-05] MEDS: Ascorbic Acid TAB* 500 MG PO SCH (07:12)
[2018-08-05] MEDS: Dofetilide CAP* 125 MCG PO SCH ×2 (07:12→22:11)
[2018-08-05] MEDS: Folic Acid TAB* 1 MG PO SCH (07:13)
[2018-08-05] MEDS: Magnesium Oxide TAB* 400 MG PO SCH (07:13)
[2018-08-05] MEDS: Multivitamins/Minerals TAB PO SCH (07:13)
[2018-08-05] MEDS: Lactobacillus Acidophilus* 1 TAB PO SCH (07:13)
[2018-08-05] MEDS: Metoprolol Tartrate TAB* 50 mg PO SCH ×2 (07:13→21:41)
[2018-08-05] MEDS: Atorvastatin* 10 MG TAB PO SCH (07:14)
[2018-08-05] MEDS: Thiamine TAB* 100 MG TAB PO SCH (07:14)
[2018-08-05] MEDS: Pantoprazole TAB * 40 MG TAB PO SCH (07:17)
[2018-08-05] MEDS: Vancomycin CAP* 125 MG CAP PO SCH ×4 (07:17→21:41)
[2018-08-05] MEDS ORDERED: Midazolam* 1 MG/ML 5 ML VIAL (5 MG) ONE (12:04)
[2018-08-05] MEDS ORDERED: Naloxone* 0.4 MG/ML 1 ML VIAL ONE (12:04)
[2018-08-05] MEDS ORDERED: fentaNYL* 50 MCG/ML 2 ML VIAL (100 MCG VIAL) ONE (12:04)
[2018-08-05] MEDS ORDERED: Flumazenil* 0.1 MG/ML 5 ML MDV ONE (12:05)
[2018-08-05] MEDS ORDERED: Lidocaine 2% VISCOUS* 15 ML UDC ONE (12:05)
--- NOTE | 2018-08-05 13:45 | TEE ---
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 History: Atrial fibrillation. Risk factors: Hypertension. Conclusions Summary: 1. Left ventricle: Systolic function is normal. The estimated ejection fraction is 60-65%. 2. Left atrium: The atrium is severely dilated. There is spontaneous echo contrast ("smoke"). 3. Right atrium: The atrium is moderately to severely dilated. 4. Atrial septum: A PFO is not demonstrated by color Doppler or agitated saline contrast. 5. Mitral valve: There is moderate regurgitation. 6. Tricuspid valve: There is mild regurgitation. 7. Pulmonic valve: There is mild regurgitation. Study data: Diagnostic Transesophageal Echocardiogram Consent: The risks and benefits of the procedure, including alternatives were discussed with the patient and/or their health care technology sales representative and written informed consent was obtained. Procedure: Initial setup: The patient was brought to the laboratory in the fasting state.Intravenous access was obtained. Surface ECG leads, heart rate, heart rhythm, blood pressure measurements, pulse oximetric signals, and mainstream end-tidal CO2 tracings were monitored throughout the procedure. Sedation. Moderate sedation was administered by nursing staff. History and physical as well as labs were reviewed. An oral bite block was inserted for protection of oral dentition. The patient was placed in the left lateral decubitus position. Topical anesthesia was obtained using viscous lidocaine. A transesophageal probe was inserted by the attending black powder glazing operator. Transesophageal echocardiography was performed, image quality was good, and all standard views were attempted within the limitations of patient tolerance and safety. Multiple 2D, color flow Doppler and spectral Doppler images were obtained. The transesophageal probe was removed. A bubble study was performed. Location: Procedure room. Patient status: Inpatient. Patient room number: 436. Study completion: The patient tolerated the procedure well. There were no complications. Administered medications: Midazolam, 5mg. Fentanyl, 50mcg. Findings Left ventricle: The cavity size is normal. Systolic function is normal. The estimated ejection fraction is 60-65%. Left ventricular diastolic function parameters are indeterminate. Right ventricle: The cavity size is normal. Wall thickness is mildly increased. Systolic function is normal. Left atrium: The atrium is severely dilated. Emptying velocity is mildly reduced. There is spontaneous echo contrast ("smoke"). Right atrium: The atrium is moderately to severely dilated. Atrial septum: There is increased thickness of the septum, consistent with lipomatous hypertrophy. A PFO is not demonstrated by color Doppler or agitated saline contrast. Mitral valve: The leaflets are normal thickness. There is no evidence of stenosis. There is moderate regurgitation. Aortic valve: The valve is trileaflet. The leaflets are mildly thickened. There is no evidence of stenosis. There is no significant regurgitation. Tricuspid valve: The leaflets are normal thickness. There is mild regurgitation. Pulmonic valve: The leaflets are normal thickness. There is no evidence of stenosis. There is mild regurgitation. Aorta: Aortic root: The aortic root is normal in size and calcified. Aortic arch: The aortic arch is normal in size and calcified. Descending aorta: The descending aorta is calcified. Pericardium: There is no significant pericardial effusion. Pulmonary arteries: The main pulmonary artery is normal-sized. Systemic veins: Inferior vena cava: The vessel is normal in size. Superior vena cava: The vessel is appears normal. Pulmonary veins: The flow of the pulmonary veins appears normal. Measurements Aortic valve Value Ref Aortic root Value Ref Melly diam, ED 2.0 cm ---- Root diam 3.3 cm <4.1 Mitral valve Value Ref Ascending aorta Value Ref Peak E 0.78 m/sec ---- AAo AP diam, S 2.8 cm ---- Peak A 0.02 m/sec ---- Decel time 40 ms ---- Peak grad, D 2.5 mm Hg ---- Peak E/A ratio 32.6 ---- Legend: (L) and (H) alba values outside specified reference range. Prepared and electronically signed by Mimi Verma MD 08/05/2018 13:45
--- NOTE | 2018-08-05 15:08 | CARD ---
CC: Dr. Mendoza; Hospitalist Service; Dr. Verma* TRANSESOPHAGEAL ECHOCARDIOGRAPHY GUIDED CARDIOVERSION: DATE OF PROCEDURE: 08/05/18 INDICATIONS: The patient is a 72-year-old female patient with history of paroxysmal atrial flutter/fibrillation, on Tikosyn treatment for 2 years and also on Eliquis as an outpatient and she was admitted with recent pneumonia, C. diff, and recent travel. Transesophageal echocardiography-guided cardioversion was further recommended. DESCRIPTION OF PROCEDURE: After informed written consent had been obtained and with continuous blood pressure, pulse oximetry and heart rate monitoring, the patient underwent transesophageal echocardiography. Please refer to a full separate report for that. In summary, there was smoke in the left atrium but there were no clots or thrombus in the left atrium or in the left atrial appendage. The patient initially received a total dose of Versed 5 mg intravenously and 50 mcg of fentanyl intravenously. An additional 2 mg of Versed and 25 mcg of fentanyl was used before the cardioversion. Decision was made to proceed with direct current cardioversion. Synchronized 150 joules were delivered once and successfully converted the patient to normal sinus rhythm. There were no complications. The patient tolerated the procedure very well. CONCLUSION: Successful WIN guided direct current cardioversion for atrial fibrillation. There were no complications. An immediate EKG was obtained and confirmed the patient to be in normal sinus rhythm. [id number] #: [id number] MTDD
--- NOTE | 2018-08-05 19:08 | PN ---
Subjective Date of Service: 08/05/18 Interval History: Patient evaluate before WIN and cardioversion. Reports she feels well today. Reports diarrhea has continued to decrease in amount, but frequency is about the same. Denies abd pain or nausea. Reports "very mild" sob that has improved since admission. Denies cp and palpitations. Objective Active Medications: Acetaminophen (Tylenol Tab*) 650 mg PO Q4H PRN PRN Reason: FEVER/PAIN Last Admin: 08/04/18 14:54 Dose: 650 mg Al Hydrox/Mg Hydrox/Simethicone (Maalox Plus*) 30 ml PO Q6H PRN PRN Reason: INDIGESTION Last Admin: 08/04/18 22:07 Dose: 30 ml Albuterol/Ipratropium (Duoneb (Albuterol 2.5 Mg/Ipratropium 0.5 Mg)) 1 neb INH Q6H PRN PRN Reason: SOB/WHEEZING Last Admin: 08/03/18 03:30 Dose: 1 neb Amoxicillin/Clavulanate Potassium (Augmentin Tab*) 875 mg PO BID [facility] Last Admin: 08/05/18 07:10 Dose: 875 mg Apixaban (Eliquis*) 5 mg PO BID [facility] Last Admin: 08/05/18 07:11 Dose: 5 mg Ascorbic Acid (Vitamin C Tab*) 500 mg PO DAILY [facility] Last Admin: 08/05/18 07:12 Dose: 500 mg Atorvastatin Calcium (Lipitor*) 30 mg PO DAILY [facility] Last Admin: 08/05/18 07:14 Dose: 30 mg Dofetilide (Tikosyn Cap*) 125 mcg PO BID [facility] Last Admin: 08/05/18 07:12 Dose: 125 mcg Folic Acid (Folvite Tab*) 1 mg PO DAILY [facility] Last Admin: 08/05/18 07:13 Dose: 1 mg Lactobacillus Rhamnosus (Lactobacillus Acidophilus*) 1 tab PO DAILY [facility] Last Admin: 08/05/18 07:13 Dose: 1 tab Magnesium Oxide (Magox 400 Tab*) 400 mg PO DAILY [facility] Last Admin: 08/05/18 07:13 Dose: 400 mg Metoprolol Tartrate (Lopressor Tab*) 50 mg PO BID [facility] Last Admin: 08/05/18 07:13 Dose: 50 mg Multivitamins/Minerals (Theragran/Minerals Tab*) 1 tab PO DAILY [facility] Last Admin: 08/05/18 07:13 Dose: 1 tab Pantoprazole Sodium (Protonix Tab*) 40 mg PO DAILY [facility] Last Admin: 08/05/18 07:17 Dose: 40 mg Pharmacy Consult (Vick Per Pharmacy*) 1 note FOLLOW UP . PRN PRN Reason: PER PROTOCOL Potassium Chloride (Klor Con Er Tab*) 20 meq PO DAILY [facility] Last Admin: 08/05/18 07:11 Dose: 20 meq Thiamine HCl (Vitamin B-1 Tab*) 100 mg PO DAILY [facility] Last Admin: 08/05/18 07:14 Dose: 100 mg Vancomycin HCl (Vancomycin Cap*) 125 mg PO QID [facility] Stop: 08/12/18 08:59 Last Admin: 08/05/18 17:33 Dose: 125 mg Vital Signs - 8 hr 08/05/18 08/05/18 08/05/18 11:35 14:35 15:45 Temperature 98.2 F 97.6 F 97.5 F Pulse Rate 94 55 61 Respiratory 16 14 20 Rate Blood Pressure 128/57 130/60 141/72 (mmHg) O2 Sat by Pulse 96 95 95 Oximetry 08/05/18 17:20 Temperature 97.5 F Pulse Rate 71 Respiratory 20 Rate Blood Pressure 153/80 (mmHg) O2 Sat by Pulse 93 Oximetry Oxygen Devices in Use Now: None Appearance: Comfortable, NAD Eyes: No Scleral Icterus Ears/Nose/Mouth/Throat: Clear Oropharnyx, Mucous Membranes Moist Neck: NL Appearance and Movements; NL JVP Respiratory: Symmetrical Chest Expansion and Respiratory Effort, Clear to Auscultation Cardiovascular: NL Sounds; No Murmurs; No JVD, No Edema Abdominal: NL Sounds; No Tenderness; No Distention Lymphatic: No Cervical Adenopathy Extremities: No Clubbing, Cyanosis Skin: No Rash or Ulcers Neurological: Alert and Oriented x 3, NL Muscle Strength and Tone Nutrition: - - NPO for WIN and cardioversion Result Diagrams: 08/04/18 07:55 08/05/18 06:40 Additional Lab and Data: Laboratory Results - last 24 hr 08/05/18 06:40 Sodium 131 L Potassium 4.3 Chloride 101 Carbon Dioxide 22 Anion Gap 8 BUN 9 Creatinine 0.77 Est GFR ( Amer) 88.7 Est GFR (Non-Af Amer) 73.3 BUN/Creatinine Ratio 11.7 Glucose 100 Calcium 8.6 Magnesium 2.0 Microbiology and Other Data: Microbiology 08/01/18 17:26 Blood Venous Aerobic Blood Culture - Preliminary No Growth Day 4 08/01/18 17:26 Blood Venous Anaerobic Blood Culture - Preliminary No Growth Day 4 08/01/18 17:26 Blood Venous Aerobic Blood Culture - Preliminary No Growth Day 4 08/01/18 17:26 Blood Venous Anaerobic Blood Culture - Preliminary No Growth Day 4 08/02/18 03:20 Stool Stool Culture - Final 08/02/18 03:20 Stool Stool Gross Appearance - Final 08/02/18 03:20 Stool Shiga Toxin I & II - Final 08/02/18 03:20 Stool C. difficile DNA Amplification - Final 027 Presumptive NEGATIVE Toxigenic C.diff POSITIVE 08/02/18 01:55 Urine Urine Culture - Final No Growth (<1,000 CFU/mL) 08/02/18 01:55 Urine Legionella Urinary Antigen - Final Negative Legionella Antigen 08/02/18 01:55 Urine Streptococcus pneumoniae Ag Screen - Final Negative S. pneumo Antigen Assess/Plan/Problems-Billing Assessment: This is a 72 year old female with history of afib and hypertension that presented to the ER with complaints of SOB and diarrhea, admitted for bilateral PNA, failed outpatient treatment and cdiff. - Patient Problems (1) Atrial flutter with rapid ventricular response Comment: - Missed tikosyn doses 2/2 recent travel and illness, HR was 63 at admission and RSR, 08/02 had episode of rapid afib/flutter; Did not convert with adenosine ; Tikosyn loaded - Cont daily EKGs - Cardiology consultin - Currently afib in low 100s on tele this morning. Now is sinus after WIN and cardioversion - Continue anticoagulation with eliquis (2) Alcohol use Comment: - Questionable amount/daily intake - Cont WAM as precaution - expressed concern given ETOH intake. Discussed outpatient tx with therapy or AA. Also discussed treating possible underlying depression/anxiety which could be contributing to ETOH intake - Discussed with patient PCP who plans to refer patient to Neal B (therapist) (3) CAP (community acquired pneumonia) Comment: - Failed treatment with cefuroxime - Was on zosyn, but will now transition to Augmentin PO - Mild leukocytosis at admission with shortness of breath; both of which improving - Weaned supplemental O2 and now on room air - Follow blood cultures which have no growth so far - Discusse swallowing difficulties and vomiting which she denies both. Given recent GI upset maybe acid reflux at night? Will start Protonix (4) Clostridium difficile diarrhea Comment: - Was on PO flagyl. Changed to Vanco to complete 10 day tx - Added probiotic (5) Electrolyte abnormality Comment: - Secondary to profuse diarrhea/cdiff and dehydration - Improved with IVF; Na, K and Mg repleted and improving - Continue to monitor lytes (6) Shortness of breath Comment: - 2/2 PNA and arrhythmia - O2 weaned and now on room air (7) DVT prophylaxis Comment: - Eliquis (8) Full code status Status and Disposition: Inpatient. Discharge home when medically stable Attending: Teresa Kaur
[2018-08-06 09:14] LABS: EGFR African American 88.7 (>60); EGFR Non-African American 73.3 (>60); Magnesium 1.7 mg/dL (1.9-2.7); Potassium 4.5 mmol/L (3.5-5.0)
--- NOTE | 2018-08-06 09:18 | PN ---
<YeealenAisha - Last Filed: 08/06/18 09:08> Subjective Date of Service: 08/06/18 - PAfib/Flutter s/p CV 08/05/2018, Tikosyn re- initated Interval History: No events last night, she states diarrhea has improved although she admits to three loose bowel movements last night. No c/o GRAVES, chest pain, palpitations, sensation of heart racing or dizziness. Medications Active Medications: Acetaminophen (Tylenol Tab*) 650 mg PO Q4H PRN PRN Reason: FEVER/PAIN Last Admin: 08/04/18 14:54 Dose: 650 mg Al Hydrox/Mg Hydrox/Simethicone (Maalox Plus*) 30 ml PO Q6H PRN PRN Reason: INDIGESTION Last Admin: 08/04/18 22:07 Dose: 30 ml Albuterol/Ipratropium (Duoneb (Albuterol 2.5 Mg/Ipratropium 0.5 Mg)) 1 neb INH Q6H PRN PRN Reason: SOB/WHEEZING Last Admin: 08/03/18 03:30 Dose: 1 neb Amoxicillin/Clavulanate Potassium (Augmentin Tab*) 875 mg PO BID [facility] Last Admin: 08/05/18 21:41 Dose: 875 mg Apixaban (Eliquis*) 5 mg PO BID [facility] Last Admin: 08/05/18 21:42 Dose: 5 mg Ascorbic Acid (Vitamin C Tab*) 500 mg PO DAILY [facility] Last Admin: 08/05/18 07:12 Dose: 500 mg Atorvastatin Calcium (Lipitor*) 30 mg PO DAILY [facility] Last Admin: 08/05/18 07:14 Dose: 30 mg Dofetilide (Tikosyn Cap*) 125 mcg PO BID [facility] Last Admin: 08/05/18 22:11 Dose: 125 mcg Folic Acid (Folvite Tab*) 1 mg PO DAILY [facility] Last Admin: 08/05/18 07:13 Dose: 1 mg Lactobacillus Rhamnosus (Lactobacillus Acidophilus*) 1 tab PO DAILY [facility] Last Admin: 08/05/18 07:13 Dose: 1 tab Magnesium Oxide (Magox 400 Tab*) 400 mg PO DAILY [facility] Last Admin: 08/05/18 07:13 Dose: 400 mg Metoprolol Tartrate (Lopressor Tab*) 50 mg PO BID [facility] Last Admin: 08/05/18 21:41 Dose: 50 mg Multivitamins/Minerals (Theragran/Minerals Tab*) 1 tab PO DAILY [facility] Last Admin: 08/05/18 07:13 Dose: 1 tab Pantoprazole Sodium (Protonix Tab*) 40 mg PO DAILY [facility] Last Admin: 08/05/18 07:17 Dose: 40 mg Pharmacy Consult (Vick Per Pharmacy*) 1 note FOLLOW UP . PRN PRN Reason: PER PROTOCOL Potassium Chloride (Klor Con Er Tab*) 20 meq PO DAILY [facility] Last Admin: 08/05/18 07:11 Dose: 20 meq Thiamine HCl (Vitamin B-1 Tab*) 100 mg PO DAILY [facility] Last Admin: 08/05/18 07:14 Dose: 100 mg Vancomycin HCl (Vancomycin Cap*) 125 mg PO QID [facility] Stop: 08/12/18 08:59 Last Admin: 08/05/18 21:41 Dose: 125 mg Objective Vital Signs: Temp Pulse Resp BP Pulse Ox 97.3 F 79 19 184/73 96 08/06/18 08:06 08/06/18 08:06 08/06/18 08:06 08/06/18 08:06 08/06/18 08:06 Oxygen Devices in Use Now: Nasal Cannula Appearance: older woman, seated, pleasant, cooperative, calm. Eyes: No Scleral Icterus, PERRLA Ears/Nose/Mouth/Throat: Mucous Membranes Moist Neck: NL Appearance and Movements; NL JVP Respiratory: Symmetrical Chest Expansion and Respiratory Effort, Clear to Auscultation Cardiovascular: NL Sounds; No Murmurs; No JVD - irregular. Abdominal: NL Sounds; No Tenderness; No Distention Extremities: No Edema, No Clubbing, Cyanosis Skin: No Rash or Ulcers Neurological: NL Muscle Strength and Tone Lines/Tubes/Other Access: Clean, Dry and Intact Peripheral IV Laboratory Results: 08/04/18 07:55 08/05/18 06:40 INR (Anticoag Therapy) 1.79 (0.82-1.09) H 08/01/18 11:25 Total Bilirubin 1.10 mg/dL (0.2-1.0) H 08/01/18 11:25 AST 22 U/L (13-39) 08/01/18 11:25 ALT 20 U/L (7-52) 08/01/18 11:25 Alkaline Phosphatase 88 U/L (34-104) 08/01/18 11:25 Total Protein 6.0 g/dL (6.4-8.9) L 08/01/18 11:25 Albumin 3.2 g/dL (3.2-5.2) 08/01/18 11:25 Globulin 2.8 g/dL (2-4) 08/01/18 11:25 Albumin/Globulin Ratio 1.1 (1-3) 08/01/18 11:25 Triglycerides 107 mg/dL 08/02/18 04:58 Cholesterol 101 mg/dL 08/02/18 04:58 LDL Cholesterol 48 mg/dL 08/02/18 04:58 HDL Cholesterol 31.2 mg/dL 08/02/18 04:58 TSH 3.90 mcIU/mL (0.34-5.60) 08/01/18 11:26 08/01/18 08/01/18 08/01/18 11:25 17:06 20:25 Troponin I 0.11 H* 0.06 H* 0.06 H* Diagnostic Imaging: focused echo 08/03/18: EF 55%. WIN 08/05/2018; LVEF-60-65%, severe LA dilatation, moderate MR, mild TRm no MARIA TERESA clot per report. EKG Data: Tele: sinus rhythm with frequent PACs, rare PVC no VT. rate 80-90's. Assessment/Plan #1 h/o PAF/flutter; In Aflutter upon admission. s/p WIN/CV 08/05/2018. Unclear duration of time but based on review of symptomatology likely occurred while in [place]. She reports missing (1) dose of Tikosyn. She is on Tikosyn 125mcg PO BID. Eliquis 5mg Po BID and Lopressor therapy. She is having frequent PACs on Telemetry. While documenting this note she had tachycardia while being weighed. It appears she is in AFib/flutter. CrCi is 73. Will discuss with Dr. Mendoza about increasing Tikosyn to 250mcg BID. Will increase Lopressor given labile HR control and HTN. #2 Troponinemia; Troponin peaked at .11 on 08/01/2018. LVEF preserved. No c/o chest pain. Will need to be evaluated outpatient once CAP and C-Diff resolve. It is possible that this was rate related however, she does have risk factors for CAD ( HTN, Age, HLD). #3 C-Diff; Patient reports improvement in the number of bowel movements. On PO Vanco. managed by hospitalist. #4 CAP; breathing effort has improved. On Augmentin now. mild leukocytosis has resolved. #5 h/o HTN; SBP this morning 152-184, lopressor increased to 75mg PO BID. #6 Disposition pending course will d/w Dr. Mendoza about increasing Tikosyn. will continue to follow. Attending: Mckenzie Mendoza <Mckenzie Mendoza - Last Filed: 08/06/18 18:06> Medications Active Medications: Acetaminophen (Tylenol Tab*) 650 mg PO Q4H PRN PRN Reason: FEVER/PAIN Last Admin: 08/04/18 14:54 Dose: 650 mg Al Hydrox/Mg Hydrox/Simethicone (Maalox Plus*) 30 ml PO Q6H PRN PRN Reason: INDIGESTION Last Admin: 08/04/18 22:07 Dose: 30 ml Albuterol/Ipratropium (Duoneb (Albuterol 2.5 Mg/Ipratropium 0.5 Mg)) 1 neb INH Q6H PRN PRN Reason: SOB/WHEEZING Last Admin: 08/03/18 03:30 Dose: 1 neb Amoxicillin/Clavulanate Potassium (Augmentin Tab*) 875 mg PO BID [facility] Last Admin: 08/06/18 09:54 Dose: 875 mg Apixaban (Eliquis*) 5 mg PO BID [facility] Last Admin: 08/06/18 09:55 Dose: 5 mg Ascorbic Acid (Vitamin C Tab*) 500 mg PO DAILY [facility] Last Admin: 08/06/18 09:54 Dose: 500 mg Atorvastatin Calcium (Lipitor*) 30 mg PO DAILY [facility] Last Admin: 08/06/18 09:54 Dose: 30 mg Dofetilide (Tikosyn Cap*) 250 mcg PO BID [facility] Last Admin: 08/06/18 11:15 Dose: 250 mcg Folic Acid (Folvite Tab*) 1 mg PO DAILY [facility] Last Admin: 08/06/18 09:54 Dose: 1 mg Lactobacillus Rhamnosus (Lactobacillus Acidophilus*) 1 tab PO DAILY [facility] Last Admin: 08/06/18 09:55 Dose: 1 tab Magnesium Oxide (Magox 400 Tab*) 400 mg PO DAILY [facility] Last Admin: 08/06/18 09:54 Dose: 400 mg Metoprolol Tartrate (Lopressor Tab*) 75 mg PO BID [facility] Multivitamins/Minerals (Theragran/Minerals Tab*) 1 tab PO DAILY [facility] Last Admin: 08/06/18 09:54 Dose: 1 tab Pantoprazole Sodium (Protonix Tab*) 40 mg PO DAILY [facility] Last Admin: 08/06/18 09:55 Dose: 40 mg Pharmacy Consult (Zosyn Per Pharmacy*) 1 note FOLLOW UP . PRN PRN Reason: PER PROTOCOL Potassium Chloride (Klor Con Er Tab*) 20 meq PO DAILY [facility] Last Admin: 08/06/18 09:54 Dose: 20 meq Thiamine HCl (Vitamin B-1 Tab*) 100 mg PO DAILY [facility] Last Admin: 08/06/18 09:54 Dose: 100 mg Vancomycin HCl (Vancomycin Cap*) 125 mg PO QID [facility] Stop: 08/12/18 08:59 Last Admin: 08/06/18 16:08 Dose: 125 mg Objective Vital Signs: Temp Pulse Resp BP Pulse Ox 97.7 F 67 16 143/71 94 08/06/18 16:27 08/06/18 16:27 08/06/18 16:27 08/06/18 16:27 08/06/18 16:27 Laboratory Results: 08/04/18 07:55 08/06/18 08:36 INR (Anticoag Therapy) 1.79 (0.82-1.09) H 08/01/18 11:25 Total Bilirubin 1.10 mg/dL (0.2-1.0) H 08/01/18 11:25 AST 22 U/L (13-39) 08/01/18 11:25 ALT 20 U/L (7-52) 08/01/18 11:25 Alkaline Phosphatase 88 U/L (34-104) 08/01/18 11:25 Total Protein 6.0 g/dL (6.4-8.9) L 08/01/18 11:25 Albumin 3.2 g/dL (3.2-5.2) 08/01/18 11:25 Globulin 2.8 g/dL (2-4) 08/01/18 11:25 Albumin/Globulin Ratio 1.1 (1-3) 08/01/18 11:25 Triglycerides 107 mg/dL 08/02/18 04:58 Cholesterol 101 mg/dL 08/02/18 04:58 LDL Cholesterol 48 mg/dL 08/02/18 04:58 HDL Cholesterol 31.2 mg/dL 08/02/18 04:58 TSH 3.90 mcIU/mL (0.34-5.60) 08/01/18 11:26 08/01/18 08/01/18 08/01/18 11:25 17:06 20:25 Troponin I 0.11 H* 0.06 H* 0.06 H* Assessment/Plan ADDENDUM: Hx of medication compliance varies day to day, unreliable historian on this point. QTc on ECG after 250 mcg dose markedly prolonged, > 500 ms. Plan: Keep Tikosyn @ 125 mcg BID. Continue Eliquis. OK from a cardiology standpoint to discharge whenever infectious issues stabilized. JAZMÍN
[2018-08-06] MEDS ORDERED: Metoprolol Tartrate TAB* 25 MG PO ONE ×3 (09:21→12:00)
[2018-08-06] MEDS: Metoprolol Tartrate TAB* 50 mg PO SCH ×2 (09:25→11:48)
[2018-08-06] MEDS: Ascorbic Acid TAB* 500 MG PO SCH (09:54)
[2018-08-06] MEDS: Magnesium Oxide TAB* 400 MG PO SCH (09:54)
[2018-08-06] MEDS: Atorvastatin* 10 MG TAB PO SCH (09:54)
[2018-08-06] MEDS: Folic Acid TAB* 1 MG PO SCH (09:54)
[2018-08-06] MEDS: Potassium Chlor TAB* 20 MEQ TAB.ER PO SCH (09:54)
[2018-08-06] MEDS: Multivitamins/Minerals TAB PO SCH (09:54)
[2018-08-06] MEDS: Amoxicillin/Clavulanate TAB* 875 MG PO SCH ×2 (09:54→21:28)
[2018-08-06] MEDS: Thiamine TAB* 100 MG TAB PO SCH (09:54)
[2018-08-06] MEDS: Apixaban* 5 MG TAB PO SCH ×2 (09:55→21:28)
[2018-08-06] MEDS: Vancomycin CAP* 125 MG CAP PO SCH ×4 (09:55→21:28)
[2018-08-06] MEDS: Pantoprazole TAB * 40 MG TAB PO SCH (09:55)
[2018-08-06] MEDS: Lactobacillus Acidophilus* 1 TAB PO SCH (09:55)
[2018-08-06] MEDS ORDERED: Magnesium Sulfate 2 GM IV* 2 GM/50 ML BAG IVPB ONE (09:57)
[2018-08-06] MEDS ORDERED: Dofetilide CAP* 250 MCG PO SCH (10:00)
[2018-08-06] MEDS: Dofetilide CAP* 125 MCG PO SCH ×2 (10:11→21:28)
--- NOTE | 2018-08-06 15:56 | PN ---
Subjective Date of Service: 08/06/18 Interval History: Lying in bed on assessment. Reports diarrhea is "much better" as she is going less frequently and less amount. Denies abd pain, nausea, vomiting, urinary symptoms. Patient reports breathing has also improved as she only has slight sob with exertion. It is noted that patient is on room air today. Patient denies cp, palpitations, fever, chills. Objective Active Medications: Acetaminophen (Tylenol Tab*) 650 mg PO Q4H PRN PRN Reason: FEVER/PAIN Last Admin: 08/04/18 14:54 Dose: 650 mg Al Hydrox/Mg Hydrox/Simethicone (Maalox Plus*) 30 ml PO Q6H PRN PRN Reason: INDIGESTION Last Admin: 08/04/18 22:07 Dose: 30 ml Albuterol/Ipratropium (Duoneb (Albuterol 2.5 Mg/Ipratropium 0.5 Mg)) 1 neb INH Q6H PRN PRN Reason: SOB/WHEEZING Last Admin: 08/03/18 03:30 Dose: 1 neb Amoxicillin/Clavulanate Potassium (Augmentin Tab*) 875 mg PO BID [facility] Last Admin: 08/06/18 09:54 Dose: 875 mg Apixaban (Eliquis*) 5 mg PO BID [facility] Last Admin: 08/06/18 09:55 Dose: 5 mg Ascorbic Acid (Vitamin C Tab*) 500 mg PO DAILY [facility] Last Admin: 08/06/18 09:54 Dose: 500 mg Atorvastatin Calcium (Lipitor*) 30 mg PO DAILY [facility] Last Admin: 08/06/18 09:54 Dose: 30 mg Dofetilide (Tikosyn Cap*) 250 mcg PO BID [facility] Last Admin: 08/06/18 11:15 Dose: 250 mcg Folic Acid (Folvite Tab*) 1 mg PO DAILY [facility] Last Admin: 08/06/18 09:54 Dose: 1 mg Lactobacillus Rhamnosus (Lactobacillus Acidophilus*) 1 tab PO DAILY [facility] Last Admin: 08/06/18 09:55 Dose: 1 tab Magnesium Oxide (Magox 400 Tab*) 400 mg PO DAILY [facility] Last Admin: 08/06/18 09:54 Dose: 400 mg Metoprolol Tartrate (Lopressor Tab*) 75 mg PO BID [facility] Multivitamins/Minerals (Theragran/Minerals Tab*) 1 tab PO DAILY [facility] Last Admin: 08/06/18 09:54 Dose: 1 tab Pantoprazole Sodium (Protonix Tab*) 40 mg PO DAILY [facility] Last Admin: 08/06/18 09:55 Dose: 40 mg Pharmacy Consult (Vick Per Pharmacy*) 1 note FOLLOW UP . PRN PRN Reason: PER PROTOCOL Potassium Chloride (Klor Con Er Tab*) 20 meq PO DAILY [facility] Last Admin: 08/06/18 09:54 Dose: 20 meq Thiamine HCl (Vitamin B-1 Tab*) 100 mg PO DAILY [facility] Last Admin: 08/06/18 09:54 Dose: 100 mg Vancomycin HCl (Vancomycin Cap*) 125 mg PO QID [facility] Stop: 08/12/18 08:59 Last Admin: 08/06/18 12:13 Dose: 125 mg Vital Signs - 8 hr 08/06/18 08/06/18 08/06/18 08:06 09:00 09:21 Temperature 97.3 F Pulse Rate 79 79 Respiratory 19 Rate Blood Pressure 184/73 177/112 (mmHg) O2 Sat by Pulse 96 Oximetry 08/06/18 11:23 Temperature 98.7 F Pulse Rate 88 Respiratory 20 Rate Blood Pressure 170/69 (mmHg) O2 Sat by Pulse 93 Oximetry Oxygen Devices in Use Now: None Appearance: Comfortable, NAD Eyes: No Scleral Icterus Ears/Nose/Mouth/Throat: Clear Oropharnyx, Mucous Membranes Moist Neck: NL Appearance and Movements; NL JVP Respiratory: Symmetrical Chest Expansion and Respiratory Effort, Clear to Auscultation Cardiovascular: NL Sounds; No Murmurs; No JVD, RRR, No Edema Abdominal: NL Sounds; No Tenderness; No Distention Lymphatic: No Cervical Adenopathy Extremities: No Clubbing, Cyanosis Skin: No Rash or Ulcers Neurological: Alert and Oriented x 3 Nutrition: Taking PO's Result Diagrams: 08/04/18 07:55 08/06/18 08:36 Additional Lab and Data: Laboratory Results - last 24 hr 08/06/18 08:36 Sodium 133 L Potassium 4.5 Chloride 100 L Carbon Dioxide 23 Anion Gap 10 BUN 10 Creatinine 0.77 Est GFR ( Amer) 88.7 Est GFR (Non-Af Amer) 73.3 BUN/Creatinine Ratio 13.0 Glucose 78 Calcium 9.0 Magnesium 1.7 L Microbiology and Other Data: Microbiology 08/01/18 17:26 Blood Venous Aerobic Blood Culture - Preliminary No Growth Day 4 08/01/18 17:26 Blood Venous Anaerobic Blood Culture - Preliminary No Growth Day 4 08/01/18 17:26 Blood Venous Aerobic Blood Culture - Preliminary No Growth Day 4 08/01/18 17:26 Blood Venous Anaerobic Blood Culture - Preliminary No Growth Day 4 08/02/18 03:20 Stool Stool Culture - Final 08/02/18 03:20 Stool Stool Gross Appearance - Final 08/02/18 03:20 Stool Shiga Toxin I & II - Final 08/02/18 03:20 Stool C. difficile DNA Amplification - Final 027 Presumptive NEGATIVE Toxigenic C.diff POSITIVE 08/02/18 01:55 Urine Urine Culture - Final No Growth (<1,000 CFU/mL) 08/02/18 01:55 Urine Legionella Urinary Antigen - Final Negative Legionella Antigen 08/02/18 01:55 Urine Streptococcus pneumoniae Ag Screen - Final Negative S. pneumo Antigen Assess/Plan/Problems-Billing Assessment: This is a 72 year old female with history of afib and hypertension that presented to the ER with complaints of SOB and diarrhea, admitted for bilateral PNA, failed outpatient treatment and cdiff. - Patient Problems (1) Atrial flutter with rapid ventricular response Comment: - Missed tikosyn doses 2/2 recent travel and illness, HR was 63 at admission and RSR, 08/02 had episode of rapid afib/flutter; Did not convert with adenosine ; Tikosyn loaded; Patient then had WIN and cardioversion yesterday and was in SR ; Today noted to be in flutter with increased rate; Cardiology increased Tikosyn and Metoprolol - Cont daily EKGs - Cardiology consultin - Continue anticoagulation with eliquis (2) Alcohol use Comment: - Questionable amount/daily intake - WAM discontinued as patient no longer requiring intervention. - expressed concern given ETOH intake. Discussed outpatient tx with therapy or AA. Also discussed treating possible underlying depression/anxiety which could be contributing to ETOH intake - Discussed with patient PCP who plans to refer patient to Neal B (therapist) (3) CAP (community acquired pneumonia) Comment: - Failed treatment with cefuroxime - Was on zosyn, but will now transition to Augmentin PO - Mild leukocytosis at admission with shortness of breath; both of which improving - Weaned supplemental O2 and now on room air - Follow blood cultures which have no growth so far - Discussed swallowing difficulties and vomiting which she denies both. Given recent GI upset maybe acid reflux at night? Cont Protonix (4) Clostridium difficile diarrhea Comment: - Was on PO flagyl. Changed to Vanco to complete 10 day tx - Cont probiotic (5) Electrolyte abnormality Comment: - Secondary to profuse diarrhea/cdiff and dehydration - Mag repleted today - Cont to monitor (6) Shortness of breath Comment: - 2/2 PNA and arrhythmia - O2 weaned and now on room air (7) DVT prophylaxis Comment: - Eliquis (8) Full code status Status and Disposition: Inpatient. Discharge home when medically stable Attending: Teresa Kaur
[2018-08-06] MEDS ORDERED: Metoprolol Tartrate TAB* 50 mg PO SCH (21:00)
--- NOTE | 2018-08-06 22:47 | PN ---
Cardiology Progress Note Date of Service: 08/06/18 - CC: bradycardia, prolonged QTc I was called by the nurse as patient bradycardic and QTc further prolonged. ECG reviewed, confirms what nurse reported. PVC's. A/P Pt with PAF/P atrial flutter who did well for 2 years on Tikosyn. Current admission for recurrent atrial flutter in setting of pneumonia, C.diff and Tikosyn and Eliquis held due to illness. Patient drinking up to 5 glasses wine/day per family. Reloaded Tikosyn at prior dose, some brief MAT/SVT Tikosyn dose increased today and metoprolol increased and now bradycardic and QT very prolonged. HOLD TIKOSYN until QTc <500. Decrease metoprolol back to 50 mg BID and add holding parameters.
[2018-08-07 07:07] LABS: Calcium 8.7 mg/dL (8.6-10.3); Magnesium 1.7 mg/dL (1.9-2.7)
[2018-08-07 07:13] LABS: BUN/Creatinine Ratio 9.7 (8-20); EGFR African American 95.8 (>60); EGFR Non-African American 79.2 (>60)
[2018-08-07] MEDS ORDERED: Magnesium Sulfate 2 GM IV* 2 GM/50 ML BAG IVPB ONE (07:50)
[2018-08-07 07:55] LABS: Potassium 3.9 mmol/L (3.5-5.0)
[2018-08-07] MEDS: Amoxicillin/Clavulanate TAB* 875 MG PO SCH ×2 (08:37→22:24)
[2018-08-07] MEDS: Potassium Chlor TAB* 20 MEQ TAB.ER PO SCH (08:37)
[2018-08-07] MEDS: Metoprolol Succinate XL TAB* 50 MG PO SCH ×2 (08:39→22:24)
[2018-08-07] MEDS: Atorvastatin* 10 MG TAB PO SCH (08:40)
[2018-08-07] MEDS: Folic Acid TAB* 1 MG PO SCH (08:40)
[2018-08-07] MEDS: Thiamine TAB* 100 MG TAB PO SCH (08:41)
[2018-08-07] MEDS: Lactobacillus Acidophilus* 1 TAB PO SCH (08:41)
[2018-08-07] MEDS: Ascorbic Acid TAB* 500 MG PO SCH (08:42)
[2018-08-07] MEDS: Vancomycin CAP* 125 MG CAP PO SCH ×4 (08:42→22:24)
[2018-08-07] MEDS: Multivitamins/Minerals TAB PO SCH (08:42)
[2018-08-07] MEDS: Pantoprazole TAB * 40 MG TAB PO SCH (08:43)
[2018-08-07] MEDS: Magnesium Oxide TAB* 400 MG PO SCH ×2 (08:43→17:37)
[2018-08-07] MEDS: Dofetilide CAP* 125 MCG PO SCH (08:43)
[2018-08-07] MEDS: Apixaban* 5 MG TAB PO SCH ×2 (08:43→22:24)
[2018-08-07] MEDS ORDERED: Potassium Chlor TAB* 20 MEQ TAB.ER PO ONE (09:03)
--- NOTE | 2018-08-07 09:14 | PN ---
Subjective Date of Service: 08/07/18 - AFL, PSVT, MAT Interval History: Patient developed QTc prolongation after Tikosyn increased to 250mcg. She received only (1) dose of the 250mcg tablet at 1100 08/06/2018. She received 125mcg at 2200 08/06/2018. Afterwards QTc further prolonged and patient was bradycardic thus, Tikosyn placed on hold until QTc is < 500. Currently she is in sinus rhythm with frequent PACs rate 70's, earlier this morning however, she had PSVT 150's. She was given 50mg PO Lopressor. Patient is not symptomatic. denies chest pain, palpitations, sensation of heart racing, dizziness or syncope. Medications Active Medications: Acetaminophen (Tylenol Tab*) 650 mg PO Q4H PRN PRN Reason: FEVER/PAIN Last Admin: 08/04/18 14:54 Dose: 650 mg Al Hydrox/Mg Hydrox/Simethicone (Maalox Plus*) 30 ml PO Q6H PRN PRN Reason: INDIGESTION Last Admin: 08/04/18 22:07 Dose: 30 ml Albuterol/Ipratropium (Duoneb (Albuterol 2.5 Mg/Ipratropium 0.5 Mg)) 1 neb INH Q6H PRN PRN Reason: SOB/WHEEZING Last Admin: 08/03/18 03:30 Dose: 1 neb Amoxicillin/Clavulanate Potassium (Augmentin Tab*) 875 mg PO BID [facility] Last Admin: 08/07/18 08:37 Dose: 875 mg Apixaban (Eliquis*) 5 mg PO BID [facility] Last Admin: 08/07/18 08:43 Dose: 5 mg Ascorbic Acid (Vitamin C Tab*) 500 mg PO DAILY [facility] Last Admin: 08/07/18 08:42 Dose: 500 mg Atorvastatin Calcium (Lipitor*) 30 mg PO DAILY [facility] Last Admin: 08/07/18 08:40 Dose: 30 mg Folic Acid (Folvite Tab*) 1 mg PO DAILY [facility] Last Admin: 08/07/18 08:40 Dose: 1 mg Lactobacillus Rhamnosus (Lactobacillus Acidophilus*) 1 tab PO DAILY [facility] Last Admin: 08/07/18 08:41 Dose: 1 tab Magnesium Oxide (Magox 400 Tab*) 400 mg PO DAILY [facility] Last Admin: 08/07/18 08:43 Dose: 400 mg Metoprolol Succinate (Toprol Xl Tab*) 50 mg PO BID [facility] Last Admin: 08/07/18 08:39 Dose: 50 mg Multivitamins/Minerals (Theragran/Minerals Tab*) 1 tab PO DAILY [facility] Last Admin: 08/07/18 08:42 Dose: 1 tab Pantoprazole Sodium (Protonix Tab*) 40 mg PO DAILY [facility] Last Admin: 08/07/18 08:43 Dose: 40 mg Pharmacy Consult (Leighsyn Per Pharmacy*) 1 note FOLLOW UP . PRN PRN Reason: PER PROTOCOL Potassium Chloride (Klor Con Er Tab*) 20 meq PO DAILY [facility] Last Admin: 08/07/18 08:37 Dose: 20 meq Potassium Chloride (Klor Con Er Tab*) 20 meq PO ONCE ONE Stop: 08/07/18 09:04 Thiamine HCl (Vitamin B-1 Tab*) 100 mg PO DAILY [facility] Last Admin: 08/07/18 08:41 Dose: 100 mg Vancomycin HCl (Vancomycin Cap*) 125 mg PO QID [facility] Stop: 08/12/18 08:59 Last Admin: 08/07/18 08:42 Dose: 125 mg Objective Vital Signs: Temp Pulse Resp BP Pulse Ox 97.8 F 78 16 170/78 93 08/07/18 08:14 08/07/18 08:14 08/07/18 08:14 08/07/18 08:14 08/07/18 08:14 Oxygen Devices in Use Now: None Appearance: older woman, seated, pleasant, cooperative, calm. Eyes: No Scleral Icterus, PERRLA Ears/Nose/Mouth/Throat: Mucous Membranes Moist Neck: NL Appearance and Movements; NL JVP Respiratory: Symmetrical Chest Expansion and Respiratory Effort, Clear to Auscultation Cardiovascular: NL Sounds; No Murmurs; No JVD - irregular Abdominal: NL Sounds; No Tenderness; No Distention Extremities: No Edema, No Clubbing, Cyanosis Skin: No Rash or Ulcers Neurological: NL Muscle Strength and Tone Lines/Tubes/Other Access: Clean, Dry and Intact Peripheral IV Laboratory Results: 08/04/18 07:55 08/07/18 06:36 INR (Anticoag Therapy) 1.79 (0.82-1.09) H 08/01/18 11:25 Total Bilirubin 1.10 mg/dL (0.2-1.0) H 08/01/18 11:25 AST 22 U/L (13-39) 08/01/18 11:25 ALT 20 U/L (7-52) 08/01/18 11:25 Alkaline Phosphatase 88 U/L (34-104) 08/01/18 11:25 Total Protein 6.0 g/dL (6.4-8.9) L 08/01/18 11:25 Albumin 3.2 g/dL (3.2-5.2) 08/01/18 11:25 Globulin 2.8 g/dL (2-4) 08/01/18 11:25 Albumin/Globulin Ratio 1.1 (1-3) 08/01/18 11:25 Triglycerides 107 mg/dL 08/02/18 04:58 Cholesterol 101 mg/dL 08/02/18 04:58 LDL Cholesterol 48 mg/dL 08/02/18 04:58 HDL Cholesterol 31.2 mg/dL 08/02/18 04:58 TSH 3.90 mcIU/mL (0.34-5.60) 08/01/18 11:26 08/01/18 08/01/18 08/01/18 11:25 17:06 20:25 Troponin I 0.11 H* 0.06 H* 0.06 H* Laboratory Results - last 24 hr 08/06/18 08/07/18 08:36 06:36 Sodium 133 L 133 L Potassium 4.5 3.9 Chloride 100 L 103 Carbon Dioxide 23 19 L Anion Gap 10 11 BUN 10 7 Creatinine 0.77 0.72 Est GFR ( Amer) 88.7 95.8 Est GFR (Non-Af Amer) 73.3 79.2 BUN/Creatinine Ratio 13.0 9.7 Glucose 78 101 H Calcium 9.0 8.7 Magnesium 1.7 L 1.7 L Diagnostic Imaging: focused echo 08/03/18: EF 55%. WIN 08/05/2018; LVEF-60-65%, severe LA dilatation, moderate MR, mild TRm no MARIA TERESA clot per report. EKG Data: Tele: Sinus bradycardia last night with PACs and rare PVC. This morning she has had PSVT rates 140-160 with Sinus arrythmia. EKG 08/07/2018; Sinus rhythm rate 67 with occasion PVC, QTc 513. Assessment/Plan #1 Paroxsymal AFL; historically on Tikosyn 125mcg/BID and Eliquis therapy. Patient admitted for C-Diff, CAP and AFL with RVR. underwent WIN/CV 08/05/2018 Tiksoyn re started. Yesterday on telemetry had a period of Paraxsymal AFL thus Tikosyn increased to 250mcg PO BID, after receiving one dose there was marked QTc prolongation > 500ms. Tikosyn reduced back to 125mcg however QTc continued to prolong so Tikosyn is now on hold. She is back on Lopressor 50mg Po BID. Had PSVT this morning. Mag 1.7 and was replaced. Will update another BMP at 1 pm today and replace accordingly. Given electrolyte imbalance due to C-Diff and marked bradycardia with QT prolongation will d/c Tikosyn. Optimize bblocker therapy. Will address referral for EPS with AFL ablation in follow up once CAP and C-Diff resolve. Continue OAC . Will follow closely. Update EKG tomorrow morning. #2 Electrolyte imbalance; likely secondary to ongoing diarrhea from C-Diff. Mag yesterday was 1.7 she received 2 grams and Mag today is still 1.7. She received 2 grams today. will update another BMP at 1 pm and replace accordingly. #3 h/o HTN; Will optimize Bblocker therapy and closely follow on telemetry. #4 Troponinemia; Troponin peaked on 08/01/2018 at .11, no c/o chest pain. will address stress test outpatient. #5 C-Diff; On PO vanco differ to hospitalist. #6 Disposition pending course will follow closely.
[2018-08-07] MEDS ORDERED: Metoprolol Tartrate IV* 1 MG/ML 5 ML VIAL IV ONE ×2 (09:33→13:42)
[2018-08-07] MEDS ORDERED: Digoxin IV* 0.5 MG/2 ML AMP (0.25 MG/ML) IV SLOW PU ONE ×2 (13:43→16:27)
[2018-08-07 14:21] LABS: BUN/Creatinine Ratio 8.8 (8-20); EGFR African American 84.8 (>60); EGFR Non-African American 70.1 (>60); Potassium 3.7 mmol/L (3.5-5.0)
[2018-08-07] MEDS ORDERED: Diltiazem IV push/loading dose 5 MG/ML 5 ML vial (25 mg) IV SLOW PU ONE (16:29)
[2018-08-07] MEDS ORDERED: Diltiazem IV VIAL* 125 MG in NS 0.9% 100 ML* 100 ML IVPB SCH (17:00)
--- NOTE | 2018-08-07 18:21 | PN ---
Subjective Date of Service: 08/07/18 Interval History: Lying in bed. Reports she "feels great". Patient reports occasional shortness of breath. Denies palpitations, chest pain, or dizziness. Denies cough, wheezing, sob with exertion, fever, chills. Reports diarrhea has decrease in frequency and amount. Denies abd pain. Objective Active Medications: Acetaminophen (Tylenol Tab*) 650 mg PO Q4H PRN PRN Reason: FEVER/PAIN Last Admin: 08/04/18 14:54 Dose: 650 mg Al Hydrox/Mg Hydrox/Simethicone (Maalox Plus*) 30 ml PO Q6H PRN PRN Reason: INDIGESTION Last Admin: 08/04/18 22:07 Dose: 30 ml Albuterol/Ipratropium (Duoneb (Albuterol 2.5 Mg/Ipratropium 0.5 Mg)) 1 neb INH Q6H PRN PRN Reason: SOB/WHEEZING Last Admin: 08/03/18 03:30 Dose: 1 neb Amoxicillin/Clavulanate Potassium (Augmentin Tab*) 875 mg PO BID [facility] Stop: 08/07/18 23:59 Last Admin: 08/07/18 08:37 Dose: 875 mg Apixaban (Eliquis*) 5 mg PO BID [facility] Last Admin: 08/07/18 08:43 Dose: 5 mg Ascorbic Acid (Vitamin C Tab*) 500 mg PO DAILY [facility] Last Admin: 08/07/18 08:42 Dose: 500 mg Atorvastatin Calcium (Lipitor*) 30 mg PO DAILY [facility] Last Admin: 08/07/18 08:40 Dose: 30 mg Folic Acid (Folvite Tab*) 1 mg PO DAILY [facility] Last Admin: 08/07/18 08:40 Dose: 1 mg Diltiazem HCl 125 mg/ Sodium (Chloride) 125 mls @ 5 mls/hr IVPB Q24H [facility]; Protocol Last Admin: 08/07/18 17:47 Dose: 5 mls/hr Lactobacillus Rhamnosus (Lactobacillus Acidophilus*) 1 tab PO DAILY [facility] Last Admin: 08/07/18 08:41 Dose: 1 tab Magnesium Oxide (Magox 400 Tab*) 800 mg PO DAILY [facility] Last Admin: 08/07/18 17:37 Dose: 800 mg Metoprolol Succinate (Toprol Xl Tab*) 50 mg PO BID [facility] Last Admin: 08/07/18 08:39 Dose: 50 mg Multivitamins/Minerals (Theragran/Minerals Tab*) 1 tab PO DAILY [facility] Last Admin: 08/07/18 08:42 Dose: 1 tab Pantoprazole Sodium (Protonix Tab*) 40 mg PO DAILY [facility] Last Admin: 08/07/18 08:43 Dose: 40 mg Pharmacy Consult (Zosyn Per Pharmacy*) 1 note FOLLOW UP . PRN PRN Reason: PER PROTOCOL Potassium Chloride (Klor Con Er Tab*) 20 meq PO DAILY [facility] Last Admin: 08/07/18 08:37 Dose: 20 meq Thiamine HCl (Vitamin B-1 Tab*) 100 mg PO DAILY [facility] Last Admin: 08/07/18 08:41 Dose: 100 mg Vancomycin HCl (Vancomycin Cap*) 125 mg PO QID [facility] Stop: 08/12/18 08:59 Last Admin: 08/07/18 17:37 Dose: 125 mg Vital Signs - 8 hr 08/07/18 08/07/18 08/07/18 11:25 13:57 13:58 Temperature 97.2 F 97.2 F Pulse Rate 132 128 128 Respiratory 20 18 Rate Blood Pressure 134/82 125/91 (mmHg) O2 Sat by Pulse 96 95 Oximetry 08/07/18 17:36 Temperature Pulse Rate 151 Respiratory Rate Blood Pressure (mmHg) O2 Sat by Pulse Oximetry Oxygen Devices in Use Now: None Appearance: Comfortable, NAD Eyes: No Scleral Icterus Ears/Nose/Mouth/Throat: Clear Oropharnyx, Mucous Membranes Moist Neck: NL Appearance and Movements; NL JVP Respiratory: Symmetrical Chest Expansion and Respiratory Effort, Clear to Auscultation Cardiovascular: No Edema Abdominal: NL Sounds; No Tenderness; No Distention Lymphatic: No Cervical Adenopathy Extremities: No Clubbing, Cyanosis Skin: No Rash or Ulcers Neurological: Alert and Oriented x 3 Nutrition: Taking PO's Result Diagrams: 08/04/18 07:55 08/07/18 13:38 Additional Lab and Data: Laboratory Results - last 24 hr 08/07/18 08/07/18 06:36 13:38 Sodium 133 L 133 L Potassium 3.9 3.7 Chloride 103 101 Carbon Dioxide 19 L 24 Anion Gap 11 8 BUN 7 7 Creatinine 0.72 0.80 Est GFR ( Amer) 95.8 84.8 Est GFR (Non-Af Amer) 79.2 70.1 BUN/Creatinine Ratio 9.7 8.8 Glucose 101 H 130 H Calcium 8.7 9.0 Magnesium 1.7 L Microbiology and Other Data: Microbiology 08/01/18 17:26 Aerobic Blood Culture - Final Blood Venous No Growth Day 5 Anaerobic Blood Culture - Final No Growth Day 5 08/01/18 17:26 Aerobic Blood Culture - Final Blood Venous No Growth Day 5 Anaerobic Blood Culture - Final No Growth Day 5 08/02/18 03:20 Stool Culture - Final Stool Stool Gross Appearance - Final Shiga Toxin I & II - Final C. difficile DNA Amplification - Final 027 Presumptive NEGATIVE Toxigenic C.diff POSITIVE 08/02/18 01:55 Urine Culture - Final Urine No Growth (<1,000 CFU/mL) 08/02/18 01:55 Legionella Urinary Antigen - Final Urine Negative Legionella Antigen Streptococcus pneumoniae Ag Screen - Final Negative S. pneumo Antigen Assess/Plan/Problems-Billing Assessment: This is a 72 year old female with history of afib and hypertension that presented to the ER with complaints of SOB and diarrhea, admitted for bilateral PNA, failed outpatient treatment and cdiff. - Patient Problems (1) Atrial flutter with rapid ventricular response Comment: - Missed tikosyn doses 2/2 recent travel and illness, HR was 63 at admission and RSR, 08/02 had episode of rapid afib/flutter; Did not convert with adenosine ; Tikosyn loaded; Patient then had WIN and cardioversion yesterday and was in SR ; Today noted to be in flutter with increased rate; Cardiology increased Tikosyn and Metoprolol; Later noted to have increased QTc; Tikosyn stopped and Metoprolol decreased to previous dose; Cardiology managing. - Cont daily EKGs - Cardiology consulting - Continue anticoagulation with eliquis (2) Alcohol use Comment: - Questionable amount/daily intake - WAM discontinued as patient no longer requiring intervention. - expressed concern given ETOH intake. Discussed outpatient tx with therapy or AA. Also discussed treating possible underlying depression/anxiety which could be contributing to ETOH intake - Discussed with patient PCP who plans to refer patient to Neal B (therapist) (3) CAP (community acquired pneumonia) Comment: - Failed treatment with cefuroxime - Was on zosyn. Transition to Augmentin PO. - Patient has completed 7 days of abx treatment; symptoms have resolved; Will discontinue Augmentin - Mild leukocytosis at admission with shortness of breath; both of which improving - Weaned supplemental O2 and now on room air - Follow blood cultures which have no growth so far - Discussed swallowing difficulties and vomiting which she denies both. Given recent GI upset maybe acid reflux at night? Cont Protonix (4) Clostridium difficile diarrhea Comment: - Was on PO flagyl. Changed to Vanco to complete 10 day tx - Today is day 6 of 10 - Cont probiotic (5) Electrolyte abnormality Comment: - Secondary to profuse diarrhea/cdiff and dehydration - Mag repleted today - Cont to monitor (6) Shortness of breath Comment: - 2/2 PNA and arrhythmia - O2 weaned and now on room air (7) DVT prophylaxis Comment: - Violetquis (8) Full code status Status and Disposition: Inpatient. Discharge home when medically stable Attending: Teresa Kaur
[2018-08-07 18:28] LABS: Magnesium 2.2 mg/dL (1.9-2.7)
[2018-08-08 07:16] LABS: BUN/Creatinine Ratio 6.2 (8-20); Calcium 9.2 mg/dL (8.6-10.3); EGFR African American 83.6 (>60); EGFR Non-African American 69.1 (>60); Magnesium 1.8 mg/dL (1.9-2.7); Potassium 3.7 mmol/L (3.5-5.0)
[2018-08-08] MEDS: Apixaban* 5 MG TAB PO SCH ×2 (09:14→21:06)
[2018-08-08] MEDS: Atorvastatin* 10 MG TAB PO SCH (09:14)
[2018-08-08] MEDS: Vancomycin CAP* 125 MG CAP PO SCH ×4 (09:14→21:06)
[2018-08-08] MEDS: Folic Acid TAB* 1 MG PO SCH (09:15)
[2018-08-08] MEDS: Potassium Chlor TAB* 20 MEQ TAB.ER PO SCH (09:15)
[2018-08-08] MEDS: Lactobacillus Acidophilus* 1 TAB PO SCH (09:16)
[2018-08-08] MEDS: Thiamine TAB* 100 MG TAB PO SCH (09:16)
[2018-08-08] MEDS: Ascorbic Acid TAB* 500 MG PO SCH (09:16)
[2018-08-08] MEDS: Metoprolol Succinate XL TAB* 50 MG PO SCH ×2 (09:16→21:06)
[2018-08-08] MEDS: Pantoprazole TAB * 40 MG TAB PO SCH (09:17)
[2018-08-08] MEDS: Multivitamins/Minerals TAB PO SCH (09:17)
[2018-08-08] MEDS: Magnesium Oxide TAB* 400 MG PO SCH (09:17)
[2018-08-08] MEDS ORDERED: Magnesium Sulfate 2 GM IV* 2 GM/50 ML BAG IVPB ONE (10:14)
[2018-08-08] MEDS ORDERED: Potassium Chloride* LIQUID 20 MEQ/15 ML UDC PO ONE (10:25)
[2018-08-08] MEDS: Diltiazem CD CAP* 120 MG PO SCH (10:56)
[2018-08-08] MEDS ORDERED: Digoxin IV* 0.5 MG/2 ML AMP (0.25 MG/ML) IV SLOW PU ONE (11:05)
--- NOTE | 2018-08-08 18:33 | PN ---
Subjective Date of Service: 08/08/18 Interval History: Patient observed ambulating unit this afternoon. Per nursing staff, when patient was ambulating her rate stayed wnl. Patient reports improvement in shortness of breath. Reports it is almost completely resolved. Patient reports improvement in diarrhea as she only had 5 bowel movements yesterday and 3 today. Reports this is an improvement from before when she was having 8 or more bowel movements a day. Denies cp, palpitations, cough, fever, chills. Objective Active Medications: Acetaminophen (Tylenol Tab*) 650 mg PO Q4H PRN PRN Reason: FEVER/PAIN Last Admin: 08/04/18 14:54 Dose: 650 mg Al Hydrox/Mg Hydrox/Simethicone (Maalox Plus*) 30 ml PO Q6H PRN PRN Reason: INDIGESTION Last Admin: 08/04/18 22:07 Dose: 30 ml Albuterol/Ipratropium (Duoneb (Albuterol 2.5 Mg/Ipratropium 0.5 Mg)) 1 neb INH Q6H PRN PRN Reason: SOB/WHEEZING Last Admin: 08/03/18 03:30 Dose: 1 neb Apixaban (Eliquis*) 5 mg PO BID [facility] Last Admin: 08/08/18 09:14 Dose: 5 mg Ascorbic Acid (Vitamin C Tab*) 500 mg PO DAILY [facility] Last Admin: 08/08/18 09:16 Dose: 500 mg Atorvastatin Calcium (Lipitor*) 30 mg PO DAILY [facility] Last Admin: 08/08/18 09:14 Dose: 30 mg Diltiazem HCl (Cardizem Cd Cap*) 120 mg PO DAILY [facility] Last Admin: 08/08/18 10:56 Dose: 120 mg Folic Acid (Folvite Tab*) 1 mg PO DAILY [facility] Last Admin: 08/08/18 09:15 Dose: 1 mg Lactobacillus Rhamnosus (Lactobacillus Acidophilus*) 1 tab PO DAILY [facility] Last Admin: 08/08/18 09:16 Dose: 1 tab Metoprolol Succinate (Toprol Xl Tab*) 50 mg PO BID [facility] Last Admin: 08/08/18 09:16 Dose: 50 mg Multivitamins/Minerals (Theragran/Minerals Tab*) 1 tab PO DAILY [facility] Last Admin: 08/08/18 09:17 Dose: 1 tab Pantoprazole Sodium (Protonix Tab*) 40 mg PO DAILY [facility] Last Admin: 08/08/18 09:17 Dose: 40 mg Pharmacy Consult (Zosyn Per Pharmacy*) 1 note FOLLOW UP . PRN PRN Reason: PER PROTOCOL Potassium Chloride (Klor Con Er Tab*) 20 meq PO DAILY [facility] Last Admin: 08/08/18 09:15 Dose: 20 meq Thiamine HCl (Vitamin B-1 Tab*) 100 mg PO DAILY [facility] Last Admin: 08/08/18 09:16 Dose: 100 mg Vancomycin HCl (Vancomycin Cap*) 125 mg PO QID [facility] Stop: 08/12/18 08:59 Last Admin: 08/08/18 17:11 Dose: 125 mg Vital Signs - 8 hr 08/08/18 08/08/18 08/08/18 10:53 11:04 11:48 Pulse Rate 92 Blood Pressure 137/84 156/63 (mmHg) Oxygen Devices in Use Now: None Appearance: Comfortable, NAD Eyes: No Scleral Icterus Ears/Nose/Mouth/Throat: Clear Oropharnyx, Mucous Membranes Moist Neck: NL Appearance and Movements; NL JVP Respiratory: Symmetrical Chest Expansion and Respiratory Effort, Clear to Auscultation Cardiovascular: NL Sounds; No Murmurs; No JVD, No Edema Abdominal: NL Sounds; No Tenderness; No Distention Lymphatic: No Cervical Adenopathy Extremities: No Clubbing, Cyanosis Skin: No Rash or Ulcers Neurological: Alert and Oriented x 3 Nutrition: Taking PO's Result Diagrams: 08/04/18 07:55 08/08/18 06:18 Additional Lab and Data: Laboratory Results - last 24 hr 08/08/18 06:18 Sodium 139 Potassium 3.7 Chloride 104 Carbon Dioxide 26 Anion Gap 9 BUN 5 L Creatinine 0.81 Est GFR ( Amer) 83.6 Est GFR (Non-Af Amer) 69.1 BUN/Creatinine Ratio 6.2 L Glucose 97 Calcium 9.2 Magnesium 1.8 L Microbiology and Other Data: Microbiology 08/01/18 17:26 Aerobic Blood Culture - Final Blood Venous No Growth Day 5 Anaerobic Blood Culture - Final No Growth Day 5 08/01/18 17:26 Aerobic Blood Culture - Final Blood Venous No Growth Day 5 Anaerobic Blood Culture - Final No Growth Day 5 08/02/18 03:20 Stool Culture - Final Stool Stool Gross Appearance - Final Shiga Toxin I & II - Final C. difficile DNA Amplification - Final 027 Presumptive NEGATIVE Toxigenic C.diff POSITIVE 08/02/18 01:55 Urine Culture - Final Urine No Growth (<1,000 CFU/mL) 08/02/18 01:55 Legionella Urinary Antigen - Final Urine Negative Legionella Antigen Streptococcus pneumoniae Ag Screen - Final Negative S. pneumo Antigen Assess/Plan/Problems-Billing Assessment: This is a 72 year old female with history of afib and hypertension that presented to the ER with complaints of SOB and diarrhea, admitted for bilateral PNA, failed outpatient treatment and cdiff. - Patient Problems (1) Atrial flutter with rapid ventricular response Comment: - Missed tikosyn doses 2/2 recent travel and illness, HR was 63 at admission and RSR, 08/02 had episode of rapid afib/flutter; Did not convert with adenosine ; Tikosyn loaded; Patient then had WIN and cardioversion yesterday and was in SR ; Today noted to be in flutter with increased rate; Cardiology increased Tikosyn and Metoprolol; Later noted to have increased QTc; Tikosyn stopped and Metoprolol decreased to previous dose; Now on Digoxin and Cardizem; Cardiology managing. - Cont daily EKGs. Monitor Qtc. - Cardiology consulting - Continue anticoagulation with eliquis (2) Alcohol use Comment: - Questionable amount/daily intake - WAM discontinued as patient no longer requiring intervention. - expressed concern given ETOH intake. Discussed outpatient tx with therapy or AA. Also discussed treating possible underlying depression/anxiety which could be contributing to ETOH intake - Discussed with patient PCP who plans to refer patient to Neal B (therapist) (3) CAP (community acquired pneumonia) Comment: - Failed treatment with cefuroxime - Was on zosyn. Transition to Augmentin PO. - Patient has completed 7 days of abx treatment; symptoms have resolved; Will discontinue Augmentin - Mild leukocytosis at admission with shortness of breath; both of which improving - Weaned supplemental O2 and now on room air - Follow blood cultures which have no growth so far - Discussed repeat chest xray with Dr Holley who recommend a repeat xray in 2 to 3 weeks (4) Clostridium difficile diarrhea Comment: - Was on PO flagyl. Changed to Vanco to complete 10 day tx - Today is day 7 of 10 - Cont probiotic - Discontinue PPI as this can increase reoccurance of Cdiff per ID - PO Magnesium discotinued as this can increase diarrhea. (5) Electrolyte abnormality Comment: - Secondary to diarrhea/cdiff - Mag repleted today - Cont to monitor (6) Shortness of breath Comment: - 2/2 PNA and arrhythmia - O2 weaned and now on room air (7) DVT prophylaxis Comment: - Eliquis (8) Full code status Status and Disposition: Inpatient. Discharge home when medically stable Attending: Teresa Kaur
--- NOTE | 2018-08-08 18:43 | CONS ---
CONSULTATION REPORT: DATE OF CONSULT: 08/08/18 REQUESTING PHYSICIAN: Carole Padgett NP. CONSULTING SERVICE: Infectious Diseases. REASON FOR CONSULTATION: C. difficile colitis. IMPRESSION: 1. Clostridium difficile colitis is improving on vancomycin. She is down to 3 to 4 soft to loose stools a day, which is improvement over her 8 plus liquid stools that were present on arrival. 2. Left upper lobe pneumonia after recent right upper lobe pneumonia. Her blood cultures were negative. Legionella and pneumococcal antigens were negative. 3. Atrial fibrillation, on anticoagulation. She had rapid ventricular response here and was cardioverted. RECOMMENDATION: 1. Agree with vancomycin 125 mg by mouth 4 times a day to complete a 10 days total of antibiotic therapy for C. difficile colitis. I discussed with her the chance of recurrence and that they should call me or Dr. Lorenzana if they left the hospital by that time and she has return of multiple liquid stools and at that point would restart the vancomycin and plan on taper and pulse course. 2. She is finished her antibiotics for pneumonia. She should have a repeat chest x-ray in about 3 weeks. 3. We will hold her PPI for a couple of weeks as there is a possibility of increased recurrence risk of C. difficile colitis. HISTORY OF PRESENT ILLNESS: This is a 72-year-old woman with pneumonia and C. diff. She had been treated in the first part of July for right-sided pneumonia, she had cough and some sputum production. She saw Dr. Lorenzana. A chest x-ray on the 07/16/18 showed a right upper lobe infiltrate. She was treated with an oral cephalosporin, took a trip to [place], was coughing and hacking and short of breath most of the time while she was there and a diarrhea started about that time. Upon her return, she had worsening shortness of breath and ongoing diarrhea. She came to the hospital on 08/01/18. C. diff PCR was positive. She was started on oral Flagyl, then switched to oral vancomycin. Her bowel movements are down from about 8 to 10 liquids stools a day in a couple of nights to 3 to 4 soft and loose stools each day without abdominal pain. She only had one bowel movement last night. Her appetite is increasing. She had a chest x-ray and then a CT that showed infiltrates at the right upper and left upper lobes in the inferior aspect of each lobe on my review of the CT and no apical involvement. Blood cultures are negative. Urine culture negative. Pneumococcal and legionella urinary antigens were negative. She has had no fever here. She had a week of Zosyn and she finished that. She is not on room air. She is coughing from time to time and seems to be nonproductive. There has been no hemoptysis. PAST MEDICAL HISTORY: 1. Atrial fibrillation with rapid ventricular response, cardioverted here. 2. Hypertension. 3. Retinal vein thrombosis. 4. Status post hysterectomy. MEDICATIONS: 1. Tylenol. 2. Albuterol inhaler. 3. Eliquis. 4. Vitamin C. 5. Lipitor. 6. Diltiazem. 7. Folic acid. 8. Lactobacillus. 9. Metoprolol. 10. Multivitamin. 11. Pantoprazole. 12. Potassium. 13. Thiamine. 14. Vancomycin 125 mg by mouth 4 times a day. ALLERGIES: No known drug allergies. FAMILY HISTORY: No recurrent infections. SOCIAL HISTORY: She lives in [place]. 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 Recent travel to [place]. REVIEW OF SYSTEMS: All negative except as noted above to the history of present illness. PHYSICAL EXAM: Vital Signs: Temperature 36.3, heart rate 80, respiratory rate 18, blood pressure 156/63, oxygen saturation 96% on room air. In general, she is awake, not in distress. Neurologic: She is oriented x3. Follows all commands. HEENT: There is no conjunctival hemorrhage. Oropharynx without lesions. Neck: Supple without mass. Heart is regular without murmurs. Lungs: There are distant breath sounds bilaterally without wheeze or rale. Abdomen: Soft, nontender, nondistended. There are bowel sounds present. Skin: There is no rash or splinter hemorrhage. Musculoskeletal: There is no spine tenderness to palpation. DIAGNOSTIC STUDIES/LAB DATA: White blood cell count 9, hemoglobin 10, platelets 208, creatinine is 0.8. Please see impressions and recommendations outlined above. [id number]/[facility] #: [id number] [facility]
[2018-08-09 06:06] LABS: ABS Basophils 0.1 10^3/ul (0-0.2); ABS Eosinophils 0.2 10^3/ul (0-0.6); ABS Lymphocytes 1.4 10^3/ul (1.0-4.8); ABS Monocytes 0.6 10^3/ul (0-0.8); Eosinophil % 1.9 %; Hematocrit 32 % (35-47); Lymphocyte % 16.9 %; Mean Corpuscular HGB Conc 34 g/dL (31-36); Mean Corpuscular Hemoglobin 32 pg (27-31); Mean Corpuscular Volume 94 fL (80-97); Mean Platelet Volume 7.9 fL (7.4-10.4); Platelet Count 307 10^3/uL (150-450); Red Blood Count 3.45 10^6 /uL (3.70-4.87); Red Cell Distribution Width 15 % (10.5-15); White Blood Count 8.3 10^3/uL (3.5-10.8)
[2018-08-09 06:24] LABS: BUN/Creatinine Ratio 6.2 (8-20); EGFR African American 83.6 (>60); EGFR Non-African American 69.1 (>60); Magnesium 1.9 mg/dL (1.9-2.7); Potassium 3.9 mmol/L (3.5-5.0)
[2018-08-09] MEDS ORDERED: Magnesium Sulfate 2 GM IV* 2 GM/50 ML BAG IVPB ONE (08:29)
[2018-08-09] MEDS: Potassium Chlor TAB* 20 MEQ TAB.ER PO SCH (08:31)
[2018-08-09] MEDS: Thiamine TAB* 100 MG TAB PO SCH (08:31)
[2018-08-09] MEDS: Multivitamins/Minerals TAB PO SCH (08:31)
[2018-08-09] MEDS: Vancomycin CAP* 125 MG CAP PO SCH (08:31)
[2018-08-09] MEDS: Lactobacillus Acidophilus* 1 TAB PO SCH (08:31)
[2018-08-09] MEDS: Atorvastatin* 10 MG TAB PO SCH (08:31)
[2018-08-09] MEDS: Apixaban* 5 MG TAB PO SCH (08:31)
[2018-08-09] MEDS: Metoprolol Succinate XL TAB* 50 MG PO SCH (08:31)
[2018-08-09] MEDS: Folic Acid TAB* 1 MG PO SCH (08:31)
[2018-08-09] MEDS: Diltiazem CD CAP* 120 MG PO SCH (08:31)
[2018-08-09] MEDS: Ascorbic Acid TAB* 500 MG PO SCH (08:32)
[2018-08-09 12:52] VITALS: BP 132/70
--- NOTE | 2018-08-09 23:28 | DS ---
CC: Dr. Maicol Lorenzana; Dr. Mckenzie Mendoza * DISCHARGE SUMMARY: DATE OF ADMISSION: 08/01/18 DATE OF DISCHARGE: 08/09/18 PRIMARY CARE PROVIDER: Dr. Maicol Lorenzana. ECONOMIC HISTORY TEACHER: Dr. Mckenzie Mendoza. MY ATTENDING WHILE IN THE HOSPITAL: Dr. Shanda Tavares.* (DICTATED BY GARY HOOPER) PRIMARY DISCHARGE DIAGNOSES: 1. Atrial fibrillation with rapid ventricular response, now rate controlled. 2. Clostridium difficile colitis. 3. Community acquired pneumonia. SECONDARY DISCHARGE DIAGNOSES: 1. Hypertension. 2. History of retinal vein thrombosis. STUDIES DONE WHILE IN THE HOSPITAL: Chest x-ray from 08/01/18 read as new left upper lobe pneumonia and improved right upper lobe pneumonia. Chest thorax CTA from 08/01/18 read as no definite evidence of pulmonary emboli. There is airspace disease in the left upper lobe and right upper lobe suggestive of pneumonia with underlying emphysema. Transthoracic echocardiogram on 08/03/18 read as systolic function is grossly normal, estimated ejection fraction is 50% to 55%, wall thickness is mildly increased, cavity size is mildly reduced, right ventricle systolic function is mildly to moderately reduced. Left atrium is dilated. Right atrium is dilated with small pericardial effusion. Transesophageal echocardiogram with cardioversion read as left ventricular systolic function is 60% to 65%. Left atrium is severely dilated. Right atrium is moderately to severely dilated. Atrial septum and PFO is not demonstrated by color Doppler or agitated saline contrast. There is moderate mitral regurgitation. There is mild tricuspid regurgitation. There is mild pulmonic regurgitation. The patient's electrocardiograms showed atrial fibrillation throughout her hospitalization, except for briefly after her cardioversion. The patient had a QTc well above 500 at times, which normalized by the date of her admission. The patient had no signs of ischemia during her hospitalization. MEDICATIONS AT DISCHARGE: 1. Calcium carbonate 600 mg p.o. daily. 2. Tylenol 650 mg p.o. q.4 hours as needed. 3. Digoxin 0.125 mg p.o. daily. 4. Diltiazem 120 mg p.o. daily. 5. Folic acid 1 mg p.o. daily. 6. Lactobacillus acidophilus 1 tab p.o. daily. 7. Metoprolol succinate 50 mg p.o. b.i.d. 8. Multivitamin 1 tablet p.o. daily. 9. Potassium chloride 20 mEq p.o. daily. 10. Thiamine 100 mg p.o. daily. 11. Vancomycin cap 125 mg p.o. q.i.d. 12. Eliquis 5 mg p.o. b.i.d. 13. Vitamin C 500 mg p.o. daily. 14. Lipitor 20 mg p.o. daily. 15. Vitamin D 1000 units p.o. daily. 16. Fish oil 1000 mg p.o. daily. 17. Vitamin B complex 1 cap p.o. daily. New Medications at Discharge: 1. Digoxin. 2. Diltiazem. 3. Lactobacillus acidophilus. 4. Metoprolol succinate 50 mg p.o. b.i.d. 5. Vancomycin. Medications Discontinued at Discharge: Losartan, Tikosyn, and furosemide. HOSPITAL COURSE: This is a brief summary of the patient's presentation. For more details, please see history and physical from Senia Peterson NP, on . In brief, the patient is a 72-year-old female with past medical history significant for the above who recently felt poorly, had a chest x-ray through her primary care provider, which showed pneumonia. The patient was prescribed an antibiotic and then went on a vacation to [place] through which time she felt relatively well; however, the last 2 days of her trip she began to feel worse with shortness of breath and diarrhea frequently. The patient denied any palpitations, but did feel more short of breath as above. The patient was found to have pneumonia as above, tested positive for Clostridium difficile, and was admitted to the hospital and started on initially oral Flagyl for her Clostridium difficile, was then converted to oral vancomycin. The patient missed several doses of Tikosyn while she was abroad due to feeling poorly. The patient was treated with Zosyn due to outpatient failed treatment with cefuroxime. The patient was cardioverted on 08/05/18 as above. The patient after that procedure was converted quickly to atrial fibrillation with a QTc of 511. The patient's Tikosyn was initially dose decreased and then stopped entirely. The patient throughout her hospitalization had episodes of RVR with rates up to 150. The patient was markedly hypomagnesemic on admission. The patient was given oral magnesium, which was stopped due to concern for contributing to the patient's diarrhea. The patient finished a course of Zosyn and Augmentin for her pneumonia while in the hospital and her breathing markedly improved. The patient improved with her diarrhea while on vancomycin after not improving on Flagyl. The patient never in her hospitalization had fevers. The patient initially presented with hypotension, which did not recur through her hospitalization. The patient near the end of her hospitalization, after her Tikosyn was discontinued, was continued on metoprolol and started on Cardizem and loaded with digoxin. The patient's heart rate responded well to this. The patient was able to ambulate throughout the unit without any shortness of breath or other symptoms. The patient was down to having 3 loose bowel movements daily with increased form. Upon the patient's admission, there was concern for alcohol withdrawal and she was treated with WAM; however, this was able to be discontinued without other signs of alcohol withdrawal. The patient's QTc on the day of discharge was 450 as above. The patient on was stable medically for discharge. PHYSICAL EXAMINATION ON DAY OF DISCHARGE: General: The patient is a 72-year- old female who appears her stated age and is sitting comfortably in bed, in no acute distress. Vital Signs: Temperature 98.0, pulse rate is 65, respiratory rate 16, oxygen saturation 99% on room air, blood pressure 132/70. HEENT: Head normocephalic, atraumatic. Sclerae anicteric. No conjunctival injection. Nasal mucosa moist. Oral mucosa moist. No pharyngeal erythema, discharge, or exudate. Neck: Supple, nontender. No lymphadenopathy. No carotid bruits. No JVD. Cardiac: Irregularly irregular rhythm. No clicks, murmurs, gallops, or rubs. Pulses 2+ in dorsalis pedis, posterior tibialis and radial areas. Respiratory: Clear to auscultation bilaterally. No wheezes, rales, or rhonchi. Good air exchange bilaterally. Abdomen: Soft, nontender, nondistended. Bowel sounds present, normoactive in all 4 quadrants. No hepatosplenomegaly. No abdominal bruits auscultated. No hepatojugular reflux. Genitourinary: No suprapubic or CVA tenderness. Skin: Clean, dry, and intact. No rash. Neuro: Cranial nerves II through XII are intact. Alert and oriented x3. Psychiatric : Pleasant and cooperative. DISCHARGE PLAN: The patient will be discharged to home. The patient will be rate controlled for her atrial fibrillation. The patient is currently on digoxin, metoprolol, and Cardizem. For rate control for her atrial fibrillation , the patient expressed desire for possible EP evaluation, the timing of which should be discussed with her outpatient obstetrics gyn physician and closely followed. The patient has an appointment on 08/19/18. The patient will be continued on potassium supplementation. The patient will be maintained on her vancomycin orally. The patient has finished antibiotics for her pneumonia. The patient will have 7 more days of vancomycin due to persistent diarrhea and antibiotic therapy. While in the hospital, the patient should discuss due to her elevated troponin the possibility of a stress test with her outpatient obstetrics gyn physician. The patient will continue on Eliquis. The patient should go to AA meetings for her possible alcohol abuse. The patient should return to the hospital for high fevers, passing out as well as shortness of breath with exertion or other alarming symptoms. The patient should have a heart-healthy diet without caffeine and engage in activities as tolerated. TIME SPENT: Approximately 60 minutes were spent on the discharge of this patient, 30 of which were spent [id number] with the patient obtaining history and physical and discussing the treatment plan. GARY HOOPER [id number]/[facility] #: [id number] BRETT
== END 2018-08-09 12:45 | disposition home or self-care (01) | DRG 871 ==
LOC: ED 11:02 → MEDTELE 17:00 → OBSVTOIN 08-02 12:00
PROVIDERS: ADMIT Internal Medicine; ATTEND Internal Medicine
PROC: 5A2204Z Restoration of Cardiac Rhythm, Single (ICD-10-PCS; 2018-08-05)
PROC: B246ZZ4 Ultrasonography of Right and Left Heart, Transesophageal (ICD-10-PCS; principal; 2018-08-05 12:00)
DX: A41.9 Sepsis, unspecified organism (principal); J18.8 Other pneumonia, unspecified organism; A04.72 Enterocolitis due to Clostridium difficile, not specified as recurrent; I24.8 Other forms of acute ischemic heart disease; I48.92 Unspecified atrial flutter; E87.1 Hypo-osmolality and hyponatremia; I95.9 Hypotension, unspecified; I48.0 Paroxysmal atrial fibrillation; E83.42 Hypomagnesemia; E86.0 Dehydration; J43.9 Emphysema, unspecified; I34.0 Nonrheumatic mitral (valve) insufficiency; I10 Essential (primary) hypertension; E87.6 Hypokalemia; E78.5 Hyperlipidemia, unspecified; R74.8 Abnormal levels of other serum enzymes; Z86.718 Personal history of other venous thrombosis and embolism; Z79.01 Long term (current) use of anticoagulants; Z79.899 Other long term (current) drug therapy; Z82.3 Family history of stroke; Z80.1 Family history of malignant neoplasm of trachea, bronchus and lung; Z72.89 Other problems related to lifestyle; Z88.8 Allergy status to other drugs, medicaments and biological substances
CPT/HCPCS: 36415; 71045; 71275; 80048; 80051; 80053; 80061; 80162; 81003; 81015; 83605; 83735; 84132; 84439; 84443; 84484; 85025; 85610; 87040; 87045; 87046; 87086; 87493; 87899; 92960; 93005; 93308; 93312; 93325; 94640; 99156; 99157; 99285; A9270-GY; G0378; J0153; J0456; J0696; J0744; J1160; J2250; J2310; J2405; J2543; J3010; J3475; J3480; J3490; Q9967

== ENCOUNTER 2020-11-29 09:23 | Inpatient (IN) ==
[~2020-11-29 09:23] MED LIST: Buffered Lidocaine 1% SYRIN 1 ml INTRADERM ONE; Lactated Ringers 1000 ml BAG 1,000 ML IV SCH
[2020-11-29] MEDS ORDERED: ceFAZolin 2 GM in NS PREMIX 2 GM/100 ML BAG IVPB ONE (10:53)
[2020-11-29] MEDS ORDERED: Lidocaine 2% PF 5 ML VIAL ONE ×2 (11:39→12:05)
[2020-11-29] MEDS ORDERED: Propofol 10 MG/ML 20 ML BTL ONE (11:39)
[2020-11-29] MEDS ORDERED: fentaNYL 100 mcg/2 ml 50 MCG/ML VIAL ONE (11:47)
[2020-11-29] MEDS ORDERED: Bupivacaine 0.5% SDV PF 30ML VIAL ONE (12:04)
[2020-11-29] MEDS ORDERED: Ondansetron 4 mg VIAL 2 MG/ML 2 ml VIAL ONE (12:17)
[2020-11-29] MEDS ORDERED: Dexamethasone IV 4 MG/ML VIAL 1 ml VIAL ONE (12:17)
[2020-11-29] MEDS ORDERED: Naloxone 0.4 mg VIAL 0.4 mg/ml 1 ml VIAL IV PRN (12:50)
[2020-11-29] MEDS ORDERED: Ondansetron 4 mg VIAL 2 MG/ML 2 ml VIAL IV PRN (12:50)
[2020-11-29] MEDS ORDERED: Acetaminophen IV 1 GM/100ML 100 ML IV PRN (12:50)
[2020-11-29] MEDS ORDERED: fentaNYL 100 mcg/2 ml 50 MCG/ML VIAL IV PRN (12:50)
[2020-11-29] MEDS ORDERED: HYDROmorphone 1 MG/1 ML SYRINGE IV PRN (12:50)
[2020-11-29] MEDS ORDERED: DiMENhydriNATE IV 50 mg/ml 1 ml VIAL IV PUSH PRN (12:50)
[2020-11-29] MEDS ORDERED: diPHENhydraMINE 25 mg TAB PO PRN (13:08)
[2020-11-29] MEDS ORDERED: diPHENhydraMINE IV 50 MG/ML 1 ml VIAL (BENADRYL) IV PRN (13:08)
[2020-11-29] MEDS ORDERED: Lactulose 30 ml UDC PO PRN (13:08)
[2020-11-29] MEDS ORDERED: Acetaminophen IV 1 GM/100ML 100 ML IV ONE (13:08)
[2020-11-29] MEDS ORDERED: Morphine 2 MG/ML SYRINGE IV PRN (13:08)
[2020-11-29] MEDS ORDERED: Vancomycin 1,000 MG in NS 0.9% 250 ml 250 ML IVPB SCH (14:00)
[2020-11-29] MEDS ORDERED: Vancomycin per Pharmacy 1 EA NOTE FOLLOW UP SCH (14:00)
[2020-11-29] MEDS: Lactated Ringers 1000 ml BAG 1,000 ML IV SCH (14:51)
[2020-11-29] MEDS ORDERED: Vancomycin 1000 MG in NS 0.9% 250 ML IVPB SCH (15:00)
[2020-11-29 16:21] LABS: EGFR African American 57.7 (>60); EGFR Non-African American 47.7 (>60)
[2020-11-29 16:22] LABS: C Reactive Protein 20.86 mg/L (<8.01); Calcium 10.4 mg/dL (8.6-10.3); EGFR African American 58.3 (>60); EGFR Non-African American 48.2 (>60); Potassium 3.6 mmol/L (3.5-5.0)
[2020-11-29 16:26] LABS: ABS Eosinophils 0.1 10^3/ul (0-0.6); ABS Lymphocytes 0.9 10^3/ul (1.0-4.8); ABS Monocytes 0.1 10^3/ul (0-0.8); ABS Neutrophils 6.2 10^3/ul (1.5-7.7); Eosinophil % 0.9 %; Hematocrit 40 % (35-47); Hemoglobin 13.4 g/dL (12.0-16.0); Lymphocyte % 12.3 %; Mean Corpuscular HGB Conc 34 g/dL (31-36); Mean Corpuscular Hemoglobin 32 pg (27-31); Mean Corpuscular Volume 95 fL (80-97); Mean Platelet Volume 7.7 fL (7.4-10.4); Platelet Count 289 10^3/uL (150-450); Red Blood Count 4.23 10^6 /uL (3.70-4.87); Red Cell Distribution Width 14 % (10-15); White Blood Count 7.3 10^3/uL (3.5-10.8)
[2020-11-29] MEDS ORDERED: Vancomycin 1,250 MG in NS 0.9% 250 ml 250 ML IVPB ONE (16:30)
[2020-11-29] MEDS: Potassium Chlor 20 meq TAB.ER PO SCH (22:01)
[2020-11-29] MEDS: Calcium (OSCAL) 500 mg TAB PO SCH (22:03)
[2020-11-30] MEDS: Lactated Ringers 1000 ml BAG 1,000 ML IV SCH (05:46)
[2020-11-30 06:28] LABS: Hematocrit 35 % (35-47); Hemoglobin 12.1 g/dL (12.0-16.0); Mean Platelet Volume 8.2 fL (7.4-10.4); Platelet Count 341 10^3/uL (150-450)
[2020-11-30 07:02] LABS: Calcium 10.6 mg/dL (8.6-10.3); EGFR African American 62.2 (>60); EGFR Non-African American 51.4 (>60); Potassium 4.1 mmol/L (3.5-5.0)
[2020-11-30] MEDS: Vitamin THERAPEUTIC TAB PO SCH (09:11)
[2020-11-30] MEDS: Potassium Chlor 20 meq TAB.ER PO SCH ×2 (09:11→20:18)
[2020-11-30] MEDS: Vancomycin 1000 MG in NS 0.9% 250 ML IVPB SCH (15:00)
[2020-11-30] MEDS: Cefepime 2 GM in Dextrose 2 GM/50 ML BAG IV SCH (17:17)
[2020-11-30] MEDS: Calcium (OSCAL) 500 mg TAB PO SCH (20:19)
[2020-12-01] MEDS: Cefepime 2 GM in Dextrose 2 GM/50 ML BAG IV SCH ×2 (05:39→17:21)
[2020-12-01 05:56] LABS: Hematocrit 33 % (35-47); Hemoglobin 11.5 g/dL (12.0-16.0); Mean Platelet Volume 7.3 fL (7.4-10.4); Platelet Count 317 10^3/uL (150-450)
[2020-12-01] MEDS: Potassium Chlor 20 meq TAB.ER PO SCH ×2 (08:46→20:22)
[2020-12-01] MEDS: Vitamin THERAPEUTIC TAB PO SCH (08:47)
[2020-12-01] MEDS ORDERED: Buffered Lidocaine 1% SYRIN 1 ml INTRADERM ONE ×2 (13:34→16:49)
[2020-12-01] MEDS ORDERED: Sodium Phosphate ADULT ENEMA 133 ML BTL PR ONE (14:00)
[2020-12-01] MEDS: Vancomycin 1000 MG in NS 0.9% 250 ML IVPB SCH (15:17)
[2020-12-01] MEDS: Calcium (OSCAL) 500 mg TAB PO SCH (20:22)
[2020-12-02] MEDS: Cefepime 2 GM in Dextrose 2 GM/50 ML BAG IV SCH (06:43)
[2020-12-02 07:00] LABS: Hematocrit 35 % (35-47); Hemoglobin 12.2 g/dL (12.0-16.0); Mean Platelet Volume 7.6 fL (7.4-10.4); Platelet Count 340 10^3/uL (150-450)
[2020-12-02 07:36] LABS: EGFR African American 76.4 (>60); EGFR Non-African American 63.1 (>60)
[2020-12-02 07:37] LABS: Vancomycin Trough 12.3 mcg/mL
[2020-12-02] MEDS: Potassium Chlor 20 meq TAB.ER PO SCH (08:32)
[2020-12-02] MEDS: Vitamin THERAPEUTIC TAB PO SCH (08:34)
[2020-12-02 11:27] VITALS: BP 139/62
[2020-12-02] MEDS ORDERED: Vancomycin Trough Check NOTE FOLLOW UP ONE (14:30)
== END 2020-12-02 16:15 | disposition home or self-care (01) | DRG 983 ==
LOC: OR 09:23 → SSU 13:08
PROVIDERS: ADMIT Orthopaedic Surgery; ATTEND Orthopaedic Surgery

== ENCOUNTER 2023-09-29 08:43 | Inpatient (IN) ==
[2023-09-29 09:56] LABS: ABS Basophils 0.1 10^3/uL (0.0-0.1); ABS Lymphocytes 0.7 10^3/uL (1.0-4.8); ABS Monocytes 0.5 10^3/uL (0.0-0.9); ABS Neutrophils 17.4 10^3/uL (1.5-7.6); ABS Nucleated RBC 0.01 10^3/ul; Eosinophil % 0.1 %; Hematocrit 42.9 % (35-45); Hemoglobin 14.1 g/dL (11.5-14.3); Mean Corpuscular Hemoglobin 30.8 pg (27-33); Mean Corpuscular Hgb Conc 32.9 g/dL (31-36); Mean Corpuscular Volume 93.6 fL (80-97); Mean Platelet Volume 7.9 fL (7.5-11.2); Platelet Count 210 10^3/uL (150-450); Red Blood Count 4.58 10^6/uL (3.63-4.92); Red Cell Distribution Width 14.3 % (12-17); White Blood Count 18.7 10^3/uL (3.8-11.8)
[2023-09-29 10:03] LABS: INR 1.82 (0.83-1.13)
[2023-09-29] MEDS: Acetaminophen IV 1 GM/100ML 1,000 MG/100 ML BAG IV ONE (10:56)
[2023-09-29 10:59] LABS: Albumin 3.8 g/dL (3.2-5.2); Albumin/Globulin Ratio 1.3 (1-3); Calcium 10.8 mg/dL (8.6-10.3); Creatinine, Serum 1.76 mg/dL (0.51-0.95); Potassium 4.8 mmol/L (3.5-5.0); Total Bilirubin 1.2 mg/dL (0.2-1.0); Total Protein 6.8 g/dL (6.4-8.9); eGFR CKD-EPI 28.9 (>60)
[2023-09-29 11:36] LABS: High Sensitivity Troponin 1 Hr 113 pg/mL (<15)
[2023-09-29] MEDS ORDERED: Morphine 2 MG/ML SYRINGE IV PRN (11:48)
[2023-09-29] MEDS: Enoxaparin 60 MG/0.6 ML SYR SUBCUT SCH (22:02)
[2023-09-29] MEDS: Potassium Chlor 10 meq TAB PO SCH (22:02)
[2023-09-30 09:58] LABS: ABS Basophils 0.1 10^3/uL (0.0-0.1); ABS Eosinophils 0.3 10^3/uL (0.0-0.5); ABS Lymphocytes 1.2 10^3/uL (1.0-4.8); ABS Monocytes 0.6 10^3/uL (0.0-0.9); ABS Neutrophils 8.4 10^3/uL (1.5-7.6); ABS Nucleated RBC 0.01 10^3/ul; Eosinophil % 2.6 %; Hematocrit 38.2 % (35-45); Hemoglobin 12.7 g/dL (11.5-14.3); Lymphocyte % 11.5 %; Mean Corpuscular Hemoglobin 31.2 pg (27-33); Mean Corpuscular Hgb Conc 33.2 g/dL (31-36); Mean Corpuscular Volume 94.2 fL (80-97); Mean Platelet Volume 8.1 fL (7.5-11.2); Nucleated Red Blood Cells % 0.1 %/100WBC (0.0-0.8); Platelet Count 152 10^3/uL (150-450); Red Blood Count 4.06 10^6/uL (3.63-4.92); Red Cell Distribution Width 14.3 % (12-17); White Blood Count 10.6 10^3/uL (3.8-11.8)
[2023-09-30 10:34] LABS: Calcium 9.6 mg/dL (8.6-10.3); Creatinine, Serum 1.48 mg/dL (0.51-0.95); Magnesium 1.7 mg/dL (1.9-2.7); Potassium 4.2 mmol/L (3.5-5.0); eGFR CKD-EPI 35.6 (>60)
[2023-09-30 11:28] LABS: High Sensitivity Troponin 1 Hr 85 pg/mL (<15)
[2023-09-30] MEDS: Sulfur Hexaflouride MICROSPHR 25 MG VIAL IV ONE (11:47)
[2023-09-30] MEDS: Cholecalciferol (VIT D3) 1,000 unit TAB PO SCH (12:28)
[2023-09-30] MEDS: Vitamin THERAPEUTIC TAB PO SCH (12:29)
[2023-09-30] MEDS: Magnesium Sulfate 2 gm BAG 2 GM/50 ML BAG IVPB ONE (13:09)
[2023-10-01 05:55] LABS: Hematocrit 35.7 % (35-45); Hemoglobin 12.1 g/dL (11.5-14.3); Mean Corpuscular Hemoglobin 31.5 pg (27-33); Mean Corpuscular Hgb Conc 33.8 g/dL (31-36); Mean Corpuscular Volume 93.2 fL (80-97); Mean Platelet Volume 8.5 fL (7.5-11.2); Platelet Count 145 10^3/uL (150-450); Red Blood Count 3.83 10^6/uL (3.63-4.92); Red Cell Distribution Width 14.4 % (12-17); White Blood Count 9.6 10^3/uL (3.8-11.8)
[2023-10-01 06:20] LABS: Calcium 9.1 mg/dL (8.6-10.3); Creatinine, Serum 1.21 mg/dL (0.51-0.95); Magnesium 2.1 mg/dL (1.9-2.7); Phosphorus 2.5 mg/dL (2.5-5.0); Potassium 4.3 mmol/L (3.5-5.0); eGFR CKD-EPI 45.3 (>60)
[2023-10-01 07:52] LABS: Urine Appearance Clear; Urine Bilirubin Negative (Negative); Urine Blood Negative (Negative); Urine Color Yellow; Urine Glucose 4+ (>=1000 mg/dL) (Negative); Urine Ketones Negative (Negative); Urine Nitrite Negative (Negative); Urine Protein Trace (Negative); Urine Urobilinogen Negative (Negative)
[2023-10-01] MEDS: Enoxaparin 60 MG/0.6 ML SYR SUBCUT SCH (12:25)
[2023-10-01 14:42] VITALS: BP 128/58
== END 2023-10-01 15:40 | disposition short-term general hospital (02) | DRG 536 ==
LOC: ED 08:43 → EDHOLD 11:48 → SUATTDRO 11:48 → SSU 12:59
PROVIDERS: ADMIT Hospitalist; ATTEND Internal Medicine